=== PATIENT | male | born 1970 | race Caucasian/White ===

== ENCOUNTER 2024-06-28 18:00 | Inpatient (IN) | payer OTHER, SELFPAY ==
[2024-06-28] VITALS (9 sets, daily range): BP systolic 92–122; BP diastolic 48–84; PULSE 99–132; RESP 13–20; TEMP 36.5–37.2; O2SAT 91–98; BMI 27.1
--- NOTE | ~2024-06-28 | CT_ITS ---
EXAMINATION: CT HEAD WITHOUT CONTRAST CLINICAL INFORMATION: Fall. Head trauma COMPARISON: None available. TECHNIQUE: Contiguous axial imaging was performed from the skull base to vertex without intravenous administration of contrast. This CT examination was performed using dose optimization techniques as appropriate, variously including the following: *Automated exposure control *Adjustment of mA and/or kV according to patient size (this includes techniques or standardized protocols for targeted exams where dose is matched to indication/reason for exam; i.e. extremities or head) *Use of iterative reconstruction technique DLP: 732 mGy-cm FINDINGS: No intra or extra-axial fluid collection or hemorrhage, mass, or mass effect. Calvarium intact. CT/CT head/brain wo IV con IMPRESSION: No acute intracranial pathology. Electronically signed by: Damian Corbett MD 07/01/2024 10:48 AM EDT
--- NOTE | ~2024-06-28 | XR_ITS ---
EXAMINATION: XR CHEST CLINICAL INFORMATION: Hypoxia COMPARISON: None available. TECHNIQUE: Frontal view of the chest was obtained. FINDINGS: Heart is normal in size. No acute vascular congestion. Platelike atelectasis is seen in the right lung base. Groundglass and interstitial opacities seen in the left lung base. No pleural effusions. Osseous structures are intact. XR/XR chest 1V IMPRESSION: Groundglass and interstitial opacities in the left lung base. Platelike atelectasis in the right lung base. Electronically signed by: Db Jaimes MD 06/28/2024 08:12 PM EDT
--- NOTE | 2024-06-28 18:09 | ECG_ITS ---
Test Reason : TACHCARDIA Blood Pressure : / mmHG Vent. Rate : 128 BPM Atrial Rate : 128 BPM P-R Int : 152 ms QRS Dur : 080 ms QT Int : 308 ms P-R-T Axes : 040 150 033 degrees QTc Int : 449 ms Sinus tachycardia Right axis deviation Right ventricular hypertrophy Nonspecific ST abnormality Abnormal ECG No previous ECGs available Referred By: Generic ED Physician Electronically Signed By:KRISHNA CALLAHAN
--- NOTE | 2024-06-28 18:32 | ED.GENADULT ---
HPI - General Adult General Chief complaint: Psychiatric Symptoms Stated complaint: VS, poss reaction to meds, tachy, diaphoretic Time Seen by Provider: 06/28/24 18:32 Source: patient, EMS and RN notes reviewed Mode of arrival: EMS Limitations: no limitations History of Present Illness ED Provider: Ailyn Dietz PA-C HPI narrative: 54 yo male with history of schiophrenia presents to the ER from [facility] (admitted 06/26) who presents to the ER for evaluation of possible adverse medication reaction. Patient was admitted to [facility] 2 days ago for increased auditory hallucinations, he was found to have a UTI. Since admission there is not been eating or drinking, not taking any of his medications including his antibiotics. He has been catatonic per report from nursing. Today he was given 4 mg of intramuscular Ativan at 10:49 for concerns of catatonia. He was then given an additional 2 mg of Ativan at 14:46 along with 50 mg of Benadryl and 100 mg of Thorazine. Shortly after that patient begin getting agitated with belly breathing, diaphoresis. He was tachycardic. They were concerned about a cardiac process he was sent to the ER for further evaluation and treatment. Patient arrives to the ER with a [facility] employee. She reports that the patient required physical restraints today along with intramuscular restraints this afternoon at 14:45. He was getting aggressive and verbally combative with other clients and staff. They report he has not eaten or slept in over 24 hours. Patient arrives to the ER responding to internal stimuli, incoherent. He is tachycardic to the 120s and SpO2 is 91%. MD complaint: Tachycardia, possible medication adverse reaction Onset (ago): hour(s) Treatments prior to arrival: none Related Data Allergies Allergy/AdvReac Type Severity Reaction Status Date / Time No Known Allergies Allergy Verified 06/28/24 18:37 Review of Systems Review of Systems: Yes Unobtainable due to mental condition and Unobtainable due to mental status PMFSH Past Medical History Medical History (Updated 06/28/24 @ 23:33 by GARCÍA Buckner) Schizophrenia Social History Social History Advance Directives: No Advance Directives Information Provided: No Do you have a plan to hurt others: No Plan Physical Exam ED Vital Signs: Vital Signs - 24 hr 06/28/24 18:31 06/28/24 18:35 06/28/24 20:00 Temperature 97.9 F 99.0 F 98.9 F Pulse Rate 126 H 126 H 113 H Respiratory Rate 20 19 20 Blood Pressure 98/70 98/70 92/68 Pulse Oximetry 91 L 91 L 95 Oxygen Delivery Method Room Air Room Air Room Air 06/28/24 20:48 06/28/24 21:53 06/28/24 22:09 Temperature 98.9 F 98.9 F Pulse Rate 99 109 H Respiratory Rate 17 13 Blood Pressure 113/63 111/71 109/75 Pulse Oximetry 95 95 Oxygen Delivery Method Room Air Room Air 06/28/24 22:26 06/28/24 22:52 Temperature 97.7 F Pulse Rate 116 H Respiratory Rate 20 Blood Pressure 122/69 103/48 L Pulse Oximetry 98 Oxygen Delivery Method Room Air BMI result Body Mass Index 27.1 Appearance: Alert middle-aged male, talking to himself on the stretcher, mildly diaphoretic Oriented X3. No acute distress. Head: normocephalic, atraumatic. Eyes: Pupils equal, round and reactive to light. ENT: Pharynx with dry mucous membranes, dry lips. No tonsillar swelling or exudate. Neck: Normal inspection. Neck supple. CVS: Tachycardic, regular rhythm, heart rate 120s, no appreciated murmur, Pulses normal. Respiratory: No respiratory distress. Breath sounds normal. Abdomen: Soft and nontender. +BS x4 Skin: Skin warm and dry. Normal skin color. Normal skin turgor. No rashes. Extremities: No lower extremity edema. No joint swelling. Neuro/psych: Awake, alert, answers simple questions, and coherent sentences with racing thoughts, very disorganized thoughts, responding to internal stimuli, paranoid Medications Administered Generic Name Dose Route Start Last Admin Trade Name Freq PRN Reason Stop Dose Admin Sodium Chloride 1,000 mls @ 100 mls/hr 06/28/24 23:15 06/28/24 23:32 Ns IVCONT 100 mls/hr .Q10H CLARA Administration Discontinued Medications Generic Name Dose Route Start Last Admin Trade Name Freq PRN Reason Stop Dose Admin Lactated Ringer's 2,354.13 mls @ 2,354.13 mls/hr 06/28/24 19:30 06/28/24 21:53 Lr 30 ml/kg infuse over 1 hr (2354.13 ml) 06/28/24 20:29 Infused IV Infusion .Q1H ONE Ceftriaxone Sodium 1 gm/ 50 mls @ 100 mls/hr 06/28/24 19:30 06/28/24 20:22 Sodium Chloride IV 06/28/24 19:59 Infused ONCE ONE Infusion Azithromycin 500 mg/ Sodium 250 mls @ 125 mls/hr 06/28/24 20:20 06/28/24 23:26 Chloride IV 06/28/24 22:19 Infused ONCE ONE Infusion Medical Decision Making Medical Decision Making MDM Narrative: 54-year-old male with a history of schizophrenia presenting to the ER for evaluation of tachycardia and diaphoresis after he was chemically and physically restrained at [facility] today. On arrival to the ER patient is slightly diaphoretic, heart rates are in the 120s. He is saturating 91% on room air. Denies any shortness of breath or chest pain. He is speaking incoherently, responding to internal stimuli. Patient reports not eating or drinking in 3 days. He is agreeable to eating and drinking here. He drank 2 large pitchers of water. He was agreeable to lab work. Labs show a significant leukocytosis of 21.8. Was found to have an acute kidney injury with a BUN of 43 and a creatinine of 1.94. Labs were obtained from [facility] where he had blood work done on the 19 of June. At that time he had a BUN of 15 and a creatinine of 0.99. He had a white blood cell count of 14.7. He reportedly had a UTI ever [place] but his UA today is negative. He has not been on antibiotics. Patient was given boluses of LR given concerns for dehydration and sepsis. His lactic acid was normal. His heart rates slowly improved. Chest x-ray is showing left lower lobe infiltrate consistent with pneumonia. He was covered with Rocephin and azithromycin. Will plan to admit the patient for further management. Differential Diagnosis Differential Diagnoses: The differential diagnosis associated with the presentation includes Dehydration, adverse medication reaction, pneumonia, MA, UTI, sepsis Admission/Observation Consideration of admission/observation: Escalation of care including admission/observation considered Consult Healthcare Provider Management of the patient was discussed with: Hospitalist Lab Data [facility] Lab Attestation statement: I reviewed the patient's lab results. RAJIV, leukocytosis 06/28/24 18:51 06/28/24 18:51 Labs: Lab Results 06/28/24 06/28/24 06/28/24 Range/Units 18:51 19:47 22:09 WBC 21.8 H (4.8-10.8) X10*3/uL RBC 5.00 (4.60-5.80) X10*6/uL Hgb 16.6 (14.0-18.0) g/dl Hct 47.2 (42.0-52.0) % MCV 94.4 (80.0-98.0) fL MCH 33.2 H (27.0-33.0) pg MCHC 35.2 (31.0-36.0) g/dl RDW 12.7 (11.0-16.0) % Plt Count 209 (160-400) X10*3/uL MPV 10.6 (9.4-12.4) fL Immature Gran % (Auto) 0.7 H (0.0-0.4) % Neut % (Auto) 77.7 H (45-73) % Lymph % (Auto) 11.1 L (20-40) % [place] % (Auto) 10.1 (2-11) % Eos % (Auto) 0.1 (0-4) % Baso % (Auto) 0.3 (0-2) % Lymph # (Auto) 2.4 (1.2-4.9) X10*3/uL [place] # (Auto) 2.2 H (0.1-1.2) X10*3/uL Eos # (Auto) 0.0 (0.0-0.4) X10*3/uL Baso # (Auto) 0.1 (0.0-0.2) X10*3/uL Abs Immat Gran (auto) 0.16 H (0.00-0.03) X10*3/uL Absolute Neuts (auto) 16.9 H (2.0-8.3) x10*3/uL Absolute Nucleated RBC 0.000 (0.0-0.012) X10*3/uL Nucleated RBC % (auto) 0.0 (0.0-0.2) /100WBC Smear Tech's Comments VERIFIED Sodium 144 (135-145) mmol/L Potassium 3.6 (3.3-5.1) mmol/L Chloride 110 H (96-108) mmol/L Carbon Dioxide 19 L (22-29) mmol/L Anion Gap 19 (12-20) BUN 43 H (9-16) mg/dL Creatinine 1.94 H (0.5-1.4) mg/dL Estim Creat Clear Calc 40.2 Estimated GFR 36 Random Glucose 128 H (60-115) mg/dL Lactic Acid 2.0 (0.5-2.0) mmol/L Calcium 10.1 (8.4-10.2) mg/dL Magnesium 2.3 (1.6-2.6) mg/dL Total Bilirubin 0.6 (0.0-1.0) mg/dL Direct Bilirubin 0.2 (0.0-0.5) mg/dL AST 49 H (5-37) U/L ALT 24 (0-40) U/L Alkaline Phosphatase 85 (39-117) U/L Total Creatine Kinase 1685 H (38-174) U/L Troponin I High Sens 12.9 (<3.5-35.0) ng/L Total Protein 6.9 (6.5-8.0) g/dL Albumin 4.4 (3.5-5.0) g/dL Urine Color Yellow Urine Appearance Cloudy Urine pH 5.5 (5.0-9.0) Ur Specific [place] 1.015 (1.005-1.025) Urine Protein Negative (Neg-Trace) mg/dL Urine Glucose (UA) Negative (Negative) mg/dL Urine Ketones 15 (Negative) mg/dL Urine Blood Negative (Negative) Urine Nitrite Negative (Negative) Ur Leukocyte Esterase Negative (Negative) Urine Opiates Screen Not Detected (Not Detect) Ur Buprenorphine Scrn Not Detected (Not Detect) ng/mL Ur Oxycodone Screen Not Detected (Not Detect) ng/mL Urine Methadone Screen Not Detected (Not Detect) ng/mL Urine Fentanyl Screen Not Detected (Not Detect) Ur Barbiturates Screen Not Detected (Not Detect) Ur Phencyclidine Scrn Not Detected (Not Detect) Ur Amphetamines Screen Not Detected (Not Detect) U Benzodiazepines Scrn Not Detected (Not Detect) Urine Cocaine Screen Not Detected (Not Detect) U Marijuana (THC) Screen Not Detected (Not Detect) Independent Interpretation I performed an independent interpretation of an: EKG and Plain X-Ray Interpretation: EKG with sinus tachycardia, ventricular rate 128 beats per minute, normal AK interval, normal QTC, Q-waves present in leads 3 and AVF, T-wave inversion in V1 Chest x-ray with left lower lobe infiltrate consistent with pneumonia Radiology Impression Discussion of test interpretation with radiology: I have reviewed the radiologist's reading. Independent Historian Clinical information obtained from an independent historian. History obtained from or confirmed by: EMS and Other ([facility] staff worker at the bedside) External Record Review External record reviewed: Inpatient record, Outpatient record and Prior outpatient labs Prescription Management I considered prescription management with: Other (Antipsychotic) Chronic Conditions Patient?s care impacted by: Other (Schizophrenia) Critical Care Time Critical Care Time Critical Care Time: Yes Total Critical Care Time: 36 Attestation: I have personally provided critical care time exclusive of time spent on separately billable procedures. Time includes review of lab data, radiology results, discussion with consultants, and monitoring for potential decompensation. Intervention performed as documented. Discharge Plan Discharge Clinical Impression: Schizophrenia, Sepsis, Pneumonia, RAJIV (acute kidney injury) Patient Disposition: Admitted As Inpatient Interventions: Muse-Suicide Risk Severity Scale Last Done: 06/28/24 18:38 Print Language: Bahamian
--- NOTE | 2024-06-28 18:49 | PC.NURSE ---
This RN called and spoke with RN from [facility], this pt resides on the [facility] ([phone]) Reported that he was admitted there on 06/26 from [facility], pt was sectioned to [facility] by N for auditory hallucinations. Baseline known schizophrenia. Pt has been catatonic since admission and has not sleeping/eating/drinking/taking PO medications. Pt was given 4mg of IM ativan at 1049 this AM, pt then began to get physical with staff, he then received 50mg of Benadryl 2mg of Ativan 100mg Thorazine IM at 1446. Pt then became diaphoretic, belly breathing, and tachy, [facility] sending him to rule out any cardiac events at this time. Pt was + for UTI when leaving [facility] however has not been taking any of his PO medications. Vitals for them this morning where 98F temp, 98% RA, 85 HR, 104/53. They were unable to get vitals later on d.t agitation His parents are . He does have a a sister and brother but he has not given them consent to give them permission to speak with them. Staff reporting he has no known allergies at this time.
[2024-06-28 19:02] LABS: Basophils Absolute Auto 0.1 X10*3/uL (0.0-0.2); Basophils Percent Auto 0.3 % (0-2); Eosinophils Percent Auto 0.1 % (0-4); Hematocrit 47.2 % (42.0-52.0); Hemoglobin 16.6 g/dl (14.0-18.0); Imm Gran Abs Auto 0.16 X10*3/uL (0.00-0.03); Imm Gran Pct Auto 0.7 % (0.0-0.4); Lymphocytes Absolute Auto 2.4 X10*3/uL (1.2-4.9); Lymphocytes Percent Auto 11.1 % (20-40); MANUAL DIFF FLAG SCAN; Mean Corpuscular HGB Conc 35.2 g/dl (31.0-36.0); Mean Corpuscular Hemoglobin 33.2 pg (27.0-33.0); Mean Corpuscular Volume 94.4 fL (80.0-98.0); Mean Platelet Volume 10.6 fL (9.4-12.4); Monocytes Absolute Auto 2.2 X10*3/uL (0.1-1.2); Monocytes Percent Auto 10.1 % (2-11); Neutrophils Absolute Auto 16.9 x10*3/uL (2.0-8.3); Neutrophils Percent Auto 77.7 % (45-73); Platelet Count 209 X10*3/uL (160-400); Red Cell Distribution Width 12.7 % (11.0-16.0); SCAN SMEAR FLAG 1; White Blood Count 21.8 X10*3/uL (4.8-10.8)
[2024-06-28 19:20] LABS: SLIDE REVIEW VERIFIED
[2024-06-28 19:22] LABS: Alanine Aminotransferase 24 U/L (0-40); Albumin Level 4.4 g/dL (3.5-5.0); Alkaline Phosphatase 85 U/L (39-117); Anion Gap 19 (12-20); Aspartate Amino Transferase 49 U/L (5-37); Bilirubin Direct 0.2 mg/dL (0.0-0.5); Bilirubin Total 0.6 mg/dL (0.0-1.0); Blood Urea Nitrogen 43 mg/dL (9-16); Calcium 10.1 mg/dL (8.4-10.2); Carbon Dioxide 19 mmol/L (22-29); Chloride 110 mmol/L (96-108); Creatinine Clr Calc Pharmacy 40.2; Estimated Glomerular Filt Rate 36; Glucose Random 128 mg/dL (60-115); Magnesium 2.3 mg/dL (1.6-2.6); Potassium 3.6 mmol/L (3.3-5.1); Sodium 144 mmol/L (135-145); Total Protein 6.9 g/dL (6.5-8.0)
[2024-06-28 19:29] LABS: Troponin-I High Sensitivity 12.9 ng/L (<3.5-35.0)
[2024-06-28] MEDS: cefTRIAXone sodium 1 GM in 0.9 % Sodium Chloride 50 ML IV (19:52)
--- NOTE | 2024-06-28 20:02 | PC.NURSE ---
this rn assumed care of pt, pt appears manic, speaking in hyperverbal speech, but appears to understand plan of care. pt allowed this RN to place IV and obtain lab work, 20G placed in right ac. this RN noted pt to have per [facility] fluids orders, this rn spoke with Julia MARIANO and states to call sepsis alert. sepsis alert called overhead at 1949, protocol initiated at 1930. Julia MARIANO aware of pt vital signs at this time. IV fluids begun and antibiotics administered. Pt has [facility] worker sitting at bedside with pt. pt easily re- directable at this time.
[2024-06-28] MEDS: Azithromycin 500 MG in 0.9 % Sodium Chloride 250 ML 125 MG IV (20:44)
--- NOTE | 2024-06-28 20:49 | PC.NURSE ---
sepsis alert hour one vitals obtained, yvette MARIANO aware.
--- NOTE | 2024-06-28 21:43 | PC.NURSE ---
this rn received fax of pt medical labs from [facility], this RN contacted Ricco to confirm receipt of labs at this time.
--- NOTE | 2024-06-28 21:54 | PC.NURSE ---
pt instructed to use urinal as needed for urine. pt reports he is unable to provide sample at this time. attempted to place [place] cath on pt but pt refused. hour 2 sepsis vitals obtained at this time.
--- NOTE | 2024-06-28 22:10 | PC.NURSE ---
at this time, pt is incontinent of urine, pt refusing to let this RN remove pants, pt refused Radha tech and [employer], pt refusing to remove pants at this time, explained to pt there is urine on his pants. pt continuing to refuse.
--- NOTE | 2024-06-28 22:25 | PC.NURSE ---
pt assisted to bathroom to attempt to change pants, pt refused. pt assisted with teeth brushing and helped back to room.
[2024-06-28 22:28] LABS: Appearance Urine Cloudy; Color Urine Yellow; Glucose Urine UA Negative (Negative); Leukocyte Esterase Urine Negative (Negative); Nitrite Urine Negative (Negative); PH 5.5 (5.0-9.0); Specific Gravity - Urine 1.015 (1.005-1.025); Urine Blood Negative (Negative); Urine Ketones 15 mg/dL (Negative); Urine Protein Negative (Neg-Trace)
[2024-06-28 22:43] LABS: Amphetamine Screen Urine Not Detected (Not Detect); Barbiturates, Urine Not Detected (Not Detect); Benzodiazepines Screen Urine Not Detected (Not Detect); Buprenorphine Scr Not Detected (Not Detect); Cannabinoid Screen Urine Not Detected (Not Detect); Cocaine Screen Urine Not Detected (Not Detect); Fentanyl, urine Not Detected (Not Detect); Methadone Screen, Urine Not Detected (Not Detect); Opiate Screen Urine Not Detected (Not Detect); Oxycodone Screen Urine Not Detected (Not Detect); Phencyclidine Screen Urine Not Detected (Not Detect)
--- NOTE | 2024-06-28 22:52 | PC.NURSE ---
hour three sepsis vitals obtained at this time, Julia MARIANO aware of pt BP.
--- NOTE | 2024-06-28 23:17 | P.HPHOSP_ITS ---
History of Present Illness Date of Service: 06/28/24 Chief Complaint: diaphoresis, tachypnea 54M [facility] schizoaffective disorder, presented with [facility] 06/26/24 with paranoid delusions of aliens telling him to harm himself, was admitted to [facility]. there, he was not eating, not sleeping, refusing po meds, became very agitated, was given 100 mg of Thorazine, 6 mg of Ativan, 50 mg of Benadryl. He then became more agitated with belly breathing, diaphoresis, tachypnea so was sent to the ER. In ED found to have acute kidney injury with creatinine of 1.94, baseline normal. Chest x-ray showed ground-glass and interstitial opacity in left lung base. WBC 21.8 and tachycardia. Review of Systems 2 Review of Systems: Yes all other systems are reviewed and are negative [facility] Medical History (Updated 06/28/24 @ 23:24 by Matty Berry MD) Schizophrenia Social History Advance Directives: No Advance Directives Information Provided: No Do you have a plan to hurt others: No Plan Meds Allergies Allergy/AdvReac Type Severity Reaction Status Date / Time No Known Allergies Allergy Verified 06/28/24 18:37 Physical Exam 2 Vital Signs and Narrative: Vital Signs: Last Vital Signs Temp 97.7 F 06/28/24 22:52 Pulse 116 H 06/28/24 22:52 Resp 20 06/28/24 22:52 BP 103/48 L 06/28/24 22:52 Pulse Ox 98 06/28/24 22:52 O2 Del Method Room Air 06/28/24 22:52 BMI result Body Mass Index 27.1 General: AO X 3, anxious, pressured speech Resp: CTA bilateral, no accessory muscles used CVS: S1,S2,RRR GI: soft, non tender, non distended Neuro: motor grossly intact, alert Psych: impaired insight Results Labs 06/28/24 18:51 06/28/24 18:51 Labs: Laboratory Results - last 24 hr 06/28/24 06/28/24 06/28/24 18:51 19:47 22:09 MCV 94.4 MCH 33.2 H MCHC 35.2 RDW 12.7 Plt Count 209 MPV 10.6 Immature Gran % (Auto) 0.7 H Neut % (Auto) 77.7 H Lymph % (Auto) 11.1 L [place] % (Auto) 10.1 Eos % (Auto) 0.1 Baso % (Auto) 0.3 Lymph # (Auto) 2.4 [place] # (Auto) 2.2 H Eos # (Auto) 0.0 Baso # (Auto) 0.1 Abs Immat Gran (auto) 0.16 H Absolute Neuts (auto) 16.9 H Absolute Nucleated RBC 0.000 Nucleated RBC % (auto) 0.0 Smear Tech's Comments VERIFIED Anion Gap 19 Estim Creat Clear Calc 40.2 Estimated GFR 36 Random Glucose 128 H Lactic Acid 2.0 Calcium 10.1 Magnesium 2.3 Total Bilirubin 0.6 Direct Bilirubin 0.2 AST 49 H ALT 24 Alkaline Phosphatase 85 Troponin I High Sens 12.9 Total Protein 6.9 Albumin 4.4 Urine Color Yellow Urine Appearance Cloudy Urine pH 5.5 Ur Specific [place] 1.015 Urine Protein Negative Urine Glucose (UA) Negative Urine Ketones 15 Urine Blood Negative Urine Nitrite Negative Ur Leukocyte Esterase Negative Urine Opiates Screen Not Detected Ur Buprenorphine Scrn Not Detected Ur Oxycodone Screen Not Detected Urine Methadone Screen Not Detected Urine Fentanyl Screen Not Detected Ur Barbiturates Screen Not Detected Ur Phencyclidine Scrn Not Detected Ur Amphetamines Screen Not Detected U Benzodiazepines Scrn Not Detected Urine Cocaine Screen Not Detected U Marijuana (THC) Screen Not Detected Imaging Radiologist's Impressions: Impressions Chest X-Ray 06/28/24 18:44 IMPRESSION: Groundglass and interstitial opacities in the left lung base. Platelike atelectasis in the right lung base. Electronically signed by: Db Jaimes MD 06/28/2024 08:12 PM EDT RP Assessment and Plan (1) Schizophrenia: Status: Acute Plan 54M PMH schizoaffective disorder, presented with tachypnea Sepsis due to pneumonia Ceftriaxone azithromycin Acute kidney injury Due to poor p.o. intake and possible rhabdo (follow-up CPK) IV fluids, monitor Schizoaffective disorder with acute psychosis Patient not taking Clozaril consistently, we will hold for now Continue fluphenazine, fluoxetine, Ativan Psychiatry eval DVT prophylaxis with Lovenox Full Code Patient with pneumonia and acute kidney injury requiring IV fluids and IV antibiotics expected require at least 2 midnights inpatient for IV hydration and close monitoring Quality Stroke Does the patient have a stroke diagnosis?: No VTE Prior VTE?: No VTE Risk Level:: Medical - moderate - high VTE Device Contraindication: Treatment Not Indicated VTE Drug Contraindication: N/A - Med Ordered
[2024-06-28] MEDS: 0.9 % Sodium Chloride 1,000 ML 100 ML IVCONT (23:32)
[2024-06-29] MEDS: LORazepam 2 MG/ML VIAL IVPUSH ×3 (01:19→09:31)
--- NOTE | 2024-06-29 01:19 | PC.NURSE ---
at this time, pt refusing to take PRN PO ativan, pt agitated, refusing to change clothes, attempting to remove IV. Security at bedside attempting to private branch exchange service adviser pt, pt medicated per mar.
--- NOTE | 2024-06-29 01:30 | PC.NURSE ---
Paulie from security at bedside, pt changed into hospital attire at this time. belongings placed in C4
--- NOTE | 2024-06-29 01:42 | PC.NURSE ---
pt assisted onto hospital bed at this time, pt appears sleeping with eyes closed, sitter at bedside, [place] worker left at this time. bed alarm in place.
--- NOTE | 2024-06-29 06:43 | MHC.EDTECH ---
Unable to take patient vital signs, Patient uncooperative
--- NOTE | 2024-06-29 08:18 | MHC.EDTECH ---
went to do vitals on patient. Patient refused
[2024-06-29] MEDS: OLANZapine 10 MG VIAL 5 MG IM (08:25)
[2024-06-29 09:15] LABS: Hematocrit 41.2 % (42.0-52.0); Hemoglobin 14.5 g/dl (14.0-18.0); Mean Corpuscular HGB Conc 35.2 g/dl (31.0-36.0); Mean Corpuscular Hemoglobin 33.2 pg (27.0-33.0); Mean Corpuscular Volume 94.3 fL (80.0-98.0); Mean Platelet Volume 10.3 fL (9.4-12.4); Platelet Count 175 X10*3/uL (160-400); Red Blood Count 4.37 X10*6/uL (4.60-5.80); Red Cell Distribution Width 12.6 % (11.0-16.0); White Blood Count 20.6 X10*3/uL (4.8-10.8)
[2024-06-29] MEDS: 0.9 % Sodium Chloride Flush 3 ML SYRINGE IVFLUSH (09:33)
[2024-06-29 09:36] VITALS: BP 114/75; PULSE 104; RESP 18; O2SAT 94
--- NOTE | 2024-06-29 09:36 | PC.NURSE ---
Pt agreeable to having VS obtained. IV flushed. Pt refusing PO medications, paranoid - those aren't my medications, I don't take those.
--- NOTE | 2024-06-29 11:03 | PHA.MEDREC ---
Addendum entered by Orquidea Reinoso lise 06/29/24 15:35: Notified Dr. Logan that we did med rec using pharmacy claims and medical record and that pt hasn't received any clozapine dose since he was at [facility] and even longer since he was managing his medications at home. Addendum entered by Jyo Mclean 06/29/24 15:22: Called and spoke to Patient's sister Abeba. she states Patient was doing good taking he own medication until Dr change a dose ( she doesn't know which medication) . She was able to confirm name of medications Fluoxetine, Perphenazine, Clozapine, clonazepam,but not the dosing. She told me to call patients Dr Uzma Cho [phone]. called Md office twice and received medication list. Utilized list to confirm medications, however don't know when patient had his last dose. Addendum entered by Joy Mclean 06/29/24 11:17: Left medications unconfirmed and will have the pharmacist notify the MD. Original Note: Pharmacy Consult ? Medication Reconciliation Pharmacy has completed the medication reconciliation.Utilized list from [facility] to confirm med list, however when I called [facility] to confirm last dose of Clozapine, [facility] ( spoke to [facility] nurse) states patient never started any medications from home. He was just admitted 2 days ago and was in bad shape when he arrived. The only medications he received at [facility] was Ativan 4 mg, Chlorpromazine 100mg, Ativan 2 mg and Benadryl 50 mg. [place] states patient came from home and was in charge of taking his own medications.
[2024-06-29 11:25] VITALS: BP 111/73; PULSE 97; RESP 18; TEMP 36.7; O2SAT 97
--- NOTE | 2024-06-29 12:17 | HO.PM.IMPN ---
Subjective Subjective Date of Service: 06/29/24 Interval History: Pt is actively psychotic, delusional, and highly agitated and has been given multiple doses of ativan and Zyprexa to keep from self harm and harm to other no apparent respiratory difficulty Physical Exam Vital Signs: Vital Signs: Last Vital Signs Temp 98.1 F 06/29/24 11:25 Pulse 97 06/29/24 11:25 Resp 18 06/29/24 11:25 BP 111/73 06/29/24 11:25 Pulse Ox 97 06/29/24 11:25 O2 Del Method Room Air 06/29/24 11:25 BMI result Body Mass Index 27.1 Const: Other: General; agiatated, delusisonal Resp: rhonhci CVS: S1,S2,RRR GI: +BS, NT, no distention Skin: No rash Neuro: motor grossly intact Psych: delusional Objective Data Active Medications Acetaminophen (Acetaminophen 325 Mg Tablet) 650 mg PO Q6H PRN PRN Reason: Pain, Mild (Pain Scale 1-3), fever or headache Azithromycin (Azithromycin 500 Mg Tablet) 500 mg PO Q24H [facility] Calcium Carbonate (Calcium Carbonate 750 Mg Tab.Chew) 750 mg PO Q4H PRN PRN Reason: Heartburn Enoxaparin Sodium (Enoxaparin Sodium 40 Mg/0.4 Ml Syringe) 40 mg SUBCUT Q24H [facility] Last Admin: 06/29/24 09:37 Dose: Not Given Documented By: TOAN Non-Admin Reason: Patient Refused Fluoxetine HCl (Fluoxetine Hcl 20 Mg Capsule) 20 mg PO DAILY [facility] Last Admin: 06/29/24 09:37 Dose: Not Given Documented By: TOAN Non-Admin Reason: Patient Refused Fluphenazine HCl (Fluphenazine Hcl 2.5 Mg Tablet) 2.5 mg PO BID [facility] Last Admin: 06/29/24 09:37 Dose: Not Given Documented By: TOAN Non-Admin Reason: Patient Refused Ceftriaxone Sodium 1 gm/ (Sodium Chloride) 50 mls @ 100 mls/hr IV Q24H [facility] Lactated Ringer's (Lr) 1,000 mls @ 100 mls/hr IVCONT .Q10H [facility] Lorazepam (Lorazepam 1 Mg Tablet) 3 mg PO TID [facility] Last Admin: 06/29/24 09:37 Dose: Not Given Documented By: TOAN Non-Admin Reason: Patient Refused Lorazepam (Lorazepam 2 Mg/Ml Vial) 2 mg IVPUSH Q6H PRN PRN Reason: anxiety/restlessness Last Admin: 06/29/24 09:31 Dose: 2 mg Documented By: TOAN Magnesium Hydroxide (Milk Of Magnesia 30 Ml Oral.Susp) 30 ml PO DAILY PRN PRN Reason: Constipation Melatonin (Melatonin 3 Mg Tablet) 6 mg PO BEDTIME PRN PRN Reason: Insomnia Sodium Chloride (0.9 % Sodium Chloride Flush 3 Ml Syringe) 3 ml IVFLUSH QSHIFT [facility] Last Admin: 06/29/24 09:33 Dose: 3 ml Documented By: TOAN Trazodone HCl (Trazodone Hcl 50 Mg Tablet) 50 mg PO BEDTIME [facility] Labs 06/30/24 07:58 06/30/24 07:58 Labs: Laboratory Results - last 24 hr 06/28/24 06/28/24 06/28/24 18:51 19:47 22:09 MCV 94.4 MCH 33.2 H MCHC 35.2 RDW 12.7 Plt Count 209 MPV 10.6 Immature Gran % (Auto) 0.7 H Neut % (Auto) 77.7 H Lymph % (Auto) 11.1 L [place] % (Auto) 10.1 Eos % (Auto) 0.1 Baso % (Auto) 0.3 Lymph # (Auto) 2.4 [place] # (Auto) 2.2 H Eos # (Auto) 0.0 Baso # (Auto) 0.1 Abs Immat Gran (auto) 0.16 H Absolute Neuts (auto) 16.9 H Absolute Nucleated RBC 0.000 Nucleated RBC % (auto) 0.0 Smear Tech's Comments VERIFIED Anion Gap 19 Estim Creat Clear Calc 40.2 Estimated GFR 36 Random Glucose 128 H Lactic Acid 2.0 Calcium 10.1 Magnesium 2.3 Total Bilirubin 0.6 Direct Bilirubin 0.2 AST 49 H ALT 24 Alkaline Phosphatase 85 Total Creatine Kinase 1685 H Troponin I High Sens 12.9 Total Protein 6.9 Albumin 4.4 Urine Color Yellow Urine Appearance Cloudy Urine pH 5.5 Ur Specific [place] 1.015 Urine Protein Negative Urine Glucose (UA) Negative Urine Ketones 15 Urine Blood Negative Urine Nitrite Negative Ur Leukocyte Esterase Negative Urine Opiates Screen Not Detected Ur Buprenorphine Scrn Not Detected Ur Oxycodone Screen Not Detected Urine Methadone Screen Not Detected Urine Fentanyl Screen Not Detected Ur Barbiturates Screen Not Detected Ur Phencyclidine Scrn Not Detected Ur Amphetamines Screen Not Detected U Benzodiazepines Scrn Not Detected Urine Cocaine Screen Not Detected U Marijuana (THC) Screen Not Detected 06/29/24 09:07 MCV 94.3 MCH 33.2 H MCHC 35.2 RDW 12.6 Plt Count 175 MPV 10.3 Immature Gran % (Auto) Neut % (Auto) Lymph % (Auto) [place] % (Auto) Eos % (Auto) Baso % (Auto) Lymph # (Auto) [place] # (Auto) Eos # (Auto) Baso # (Auto) Abs Immat Gran (auto) Absolute Neuts (auto) Absolute Nucleated RBC 0.000 Nucleated RBC % (auto) 0.0 Smear Tech's Comments Anion Gap Estim Creat Clear Calc Estimated GFR Random Glucose Lactic Acid Calcium Magnesium Total Bilirubin Direct Bilirubin AST ALT Alkaline Phosphatase Total Creatine Kinase Troponin I High Sens Total Protein Albumin Urine Color Urine Appearance Urine pH Ur Specific [place] Urine Protein Urine Glucose (UA) Urine Ketones Urine Blood Urine Nitrite Ur Leukocyte Esterase Urine Opiates Screen Ur Buprenorphine Scrn Ur Oxycodone Screen Urine Methadone Screen Urine Fentanyl Screen Ur Barbiturates Screen Ur Phencyclidine Scrn Ur Amphetamines Screen U Benzodiazepines Scrn Urine Cocaine Screen U Marijuana (THC) Screen Assessment and Plan (1) RAJIV (acute kidney injury): Status: Acute (2) Pneumonia: Status: Acute (3) Sepsis: Status: Acute (4) Schizophrenia: Status: Acute Plan 54M PMH schizoaffective disorder, presented with tachypnea Sepsis due to pneumonia no hypoxia, wbc still very high but better Ceftriaxone azithromycin Acute kidney injury Due to poor p.o. intake and possible rhabdo (follow-up CPK) IV fluids, monitor Schizoaffective disorder with acute psychosis Patient not taking Clozaril consistently, we will hold for now he is refusing po meds Psychiatry eval for med recommendation DVT prophylaxis with Lovenox Full Code Patient with pneumonia and acute kidney injury requiring IV fluids and IV antibiotics expected require at least 2 midnights inpatient for IV hydration and close monitoring Quality Stroke Does the patient have a stroke diagnosis?: No VTE Prior VTE?: No VTE Risk Level:: Medical - moderate - high VTE Device Contraindication: Treatment Not Indicated VTE Drug Contraindication: N/A - Med Ordered
--- NOTE | 2024-06-29 13:22 | PC.NURSE ---
Pt continues intermittently attempting to wander down the hallway, redirectable with repeated attempts.
--- NOTE | 2024-06-29 14:01 | PC.NURSE ---
Pt eating lunch.
[2024-06-29 14:14] LABS: Anion Gap 10 (12-20); Blood Urea Nitrogen 25 mg/dL (9-16); Carbon Dioxide 26 mmol/L (22-29); Chloride 106 mmol/L (96-108); Glucose Fasting 89 mg/dL (60-99); Sodium 139 mmol/L (135-145)
[2024-06-29 14:31] LABS: Calcium 9.1 mg/dL (8.4-10.2); Estimated Glomerular Filt Rate > 60
--- NOTE | 2024-06-29 14:39 | PC.NURSE ---
Call Aurea DAILY at [facility] [place] for any questions regarding pt's psychiatric care.
[2024-06-29 15:37] VITALS: BP 115/65; PULSE 94; RESP 20; TEMP 36.3; O2SAT 95
--- NOTE | 2024-06-29 15:44 | MHC.CM.PN ---
PT WAS AT [facility] CM MET WITH PT, BROTHER AND SISTER IN LAW AT BEDSIDE PT LIVES ALONE AND IS INDEPENDENT WITH CARE AT BASELINE HE HAS NO SERVICES AND NO DME PT COMPLETED A HCP TODAY NAMING HIS SISTER, BRANDON HIS AGENT PCP: ALYSHA ODONNELL IMM DELIVERED DCP: HOME VS RETURN TO [facility] TRANSPORT: FAMILY VS BLS
--- NOTE | 2024-06-29 15:48 | P.CNPS_ITS ---
History of Present Illness Date of Service: 06/29/2024 Chief Complaint: Diaphoresis Tachypnea RAJIV Reason for Consult: psychosis/delusions Requesting physician: Jay Logan Discussed with referring provider: Yes Sources of Information: patient interviewed, chart reviewed and crisis/core team assessment reviewed Additional Sources of Information: sister Abeba Dueñas [phone] HPI Narrative: Mr. Long is 54 year-old male with hx of schizophrenia who was transferred from [facility] due to SOB. Pt in the ED had elevated WBC 21.8, BUN 43, Cr. 1.93, CK elevated 1685, chest XR showed ground glass on left lung base. He was started on antibiotic. Records requested from [facility]. Apparently, pt was not eating and had reported paranoid delusions of Alliens trying to harm him. He has been on clozaril but reports from [facility] that he was not taking it. He was then given prolixin 2.5mg p BID. He was on ativan 3mg po TID. unclear if presentation at [facility] was consistent with catatonia. Pt seen in ED. Pt is up, pacing mildly. He reports hearing voices. He states that everyone in the hospital is talking about him and people think that he is dangerous. He turned at some point and talks to someone who is not there. He tells that oriental orthodox sending alliens because people are not doing what they are supposed to do. He states he declined medications this morning because those were not the ones he usually takes. He was able to tell this writer producer that he takes clozapine 575mg po qhs, trilafon. He is not able to tell if he was taking clozaril or not at [facility]. He denies SI/HI. He asks if he can go out and smoke and return, which this writer producer explained he is currently being treated for pneumonia and need medical treatment. He asks if there is a smoking area in the hospital, which this writer producer explained there is not one. He is noted to have vertical nystagmus- which suspect is due to high dose ativan. He does not present with s/s of catatonia at this time but he does seem tormented by paranoid delusions and psychosis. Collateral information gathered from his sister, Abeba- who reports pt has been stable for 7 years on clozaril. She reports they talk almost daily and he presented as more paranoid last week, taking about oriental orthodox, alliens, and at some point became paranoid towards hers which sister reports is very unusual. Sister asked him to go to crisis or the ED. Sister reports he is usually very consistent taking medications. He apparently was seen by his psychiatrist about 3 weeks ago. He is usually on combination of clozapine, trilafon, prozac, clonazepam. Sister denies hx of aggression towards self or others. Past Psychiatric History: Inpt:09/2017 [facility]GED WITH [facility] (last admission) Op: Guillermo Cho past trials: clozapine, trilafon Medical Evaluation Reviewed: Yes [facility] Medical History (Updated 06/28/24 @ 23:33 by GARCÍA Buckner) Schizophrenia Family History: none Social History: lives alone. no children. Substance History: none Trauma History: unknown Diagnostics Vital Signs (24Hr): Vital Signs - 24 hr 06/28/24 18:31 06/28/24 18:35 06/28/24 20:00 Temperature 97.9 F 99.0 F 98.9 F Pulse Rate 126 H 126 H 113 H Respiratory Rate 20 19 20 Blood Pressure 98/70 98/70 92/68 Pulse Oximetry 91 L 91 L 95 Oxygen Delivery Method Room Air Room Air Room Air 06/28/24 20:48 06/28/24 21:53 06/28/24 22:09 Temperature 98.9 F 98.9 F Pulse Rate 99 109 H Respiratory Rate 17 13 Blood Pressure 113/63 111/71 109/75 Pulse Oximetry 95 95 Oxygen Delivery Method Room Air Room Air 06/28/24 22:26 06/28/24 22:52 06/29/24 09:36 Temperature 97.7 F Pulse Rate 116 H 104 H Respiratory Rate 20 18 Blood Pressure 122/69 103/48 L 114/75 Pulse Oximetry 98 94 Oxygen Delivery Method Room Air Room Air 06/29/24 11:25 06/29/24 15:37 Temperature 98.1 F 97.3 F Pulse Rate 97 94 Respiratory Rate 18 20 Blood Pressure 111/73 115/65 Pulse Oximetry 97 95 Oxygen Delivery Method Room Air Room Air BMI result Body Mass Index 27.1 Labs 06/29/24 09:07 06/29/24 13:07 Labs: Laboratory Results - last 48 hr 06/28/24 06/28/24 06/28/24 18:51 19:47 22:09 WBC 21.8 H RBC 5.00 Hgb 16.6 Hct 47.2 MCV 94.4 MCH 33.2 H MCHC 35.2 RDW 12.7 Plt Count 209 MPV 10.6 Immature Gran % (Auto) 0.7 H Neut % (Auto) 77.7 H Lymph % (Auto) 11.1 L [place] % (Auto) 10.1 Eos % (Auto) 0.1 Baso % (Auto) 0.3 Lymph # (Auto) 2.4 [place] # (Auto) 2.2 H Eos # (Auto) 0.0 Baso # (Auto) 0.1 Abs Immat Gran (auto) 0.16 H Absolute Neuts (auto) 16.9 H Absolute Nucleated RBC 0.000 Nucleated RBC % (auto) 0.0 Smear Tech's Comments VERIFIED Sodium 144 Potassium 3.6 Chloride 110 H Carbon Dioxide 19 L Anion Gap 19 BUN 43 H Creatinine 1.94 H Estim Creat Clear Calc 40.2 Estimated GFR 36 Random Glucose 128 H Fasting Glucose Lactic Acid 2.0 Calcium 10.1 Magnesium 2.3 Total Bilirubin 0.6 Direct Bilirubin 0.2 AST 49 H ALT 24 Alkaline Phosphatase 85 Total Creatine Kinase 1685 H Troponin I High Sens 12.9 Total Protein 6.9 Albumin 4.4 Urine Color Yellow Urine Appearance Cloudy Urine pH 5.5 Ur Specific [place] 1.015 Urine Protein Negative Urine Glucose (UA) Negative Urine Ketones 15 Urine Blood Negative Urine Nitrite Negative Ur Leukocyte Esterase Negative Urine Opiates Screen Not Detected Ur Buprenorphine Scrn Not Detected Ur Oxycodone Screen Not Detected Urine Methadone Screen Not Detected Urine Fentanyl Screen Not Detected Ur Barbiturates Screen Not Detected Ur Phencyclidine Scrn Not Detected Ur Amphetamines Screen Not Detected U Benzodiazepines Scrn Not Detected Urine Cocaine Screen Not Detected U Marijuana (THC) Screen Not Detected 06/29/24 06/29/24 09:07 13:07 WBC 20.6 H RBC 4.37 L Hgb 14.5 Hct 41.2 L MCV 94.3 MCH 33.2 H MCHC 35.2 RDW 12.6 Plt Count 175 MPV 10.3 Immature Gran % (Auto) Neut % (Auto) Lymph % (Auto) [place] % (Auto) Eos % (Auto) Baso % (Auto) Lymph # (Auto) [place] # (Auto) Eos # (Auto) Baso # (Auto) Abs Immat Gran (auto) Absolute Neuts (auto) Absolute Nucleated RBC 0.000 Nucleated RBC % (auto) 0.0 Smear Tech's Comments Sodium 139 Potassium 3.0 L Chloride 106 Carbon Dioxide 26 Anion Gap 10 L BUN 25 H Creatinine 0.78 Estim Creat Clear Calc 100.0 Estimated GFR > 60 Random Glucose Fasting Glucose 89 Lactic Acid Calcium 9.1 D Magnesium 2.0 Total Bilirubin Direct Bilirubin AST ALT Alkaline Phosphatase Total Creatine Kinase 1731 H Troponin I High Sens Total Protein Albumin Urine Color Urine Appearance Urine pH Ur Specific [place] Urine Protein Urine Glucose (UA) Urine Ketones Urine Blood Urine Nitrite Ur Leukocyte Esterase Urine Opiates Screen Ur Buprenorphine Scrn Ur Oxycodone Screen Urine Methadone Screen Urine Fentanyl Screen Ur Barbiturates Screen Ur Phencyclidine Scrn Ur Amphetamines Screen U Benzodiazepines Scrn Urine Cocaine Screen U Marijuana (THC) Screen Imaging Radiology Impressions: ITS Impressions Chest X-Ray 06/28/24 18:44 IMPRESSION: Groundglass and interstitial opacities in the left lung base. Platelike atelectasis in the right lung base. Electronically signed by: Db Jaimes MD 06/28/2024 08:12 PM EDT RP Mental Status Exam Mental Status Exam Narrative: Appearance: pt wearing hospital gown, pacing, noticeable horizontal nystagmus (? if related to high dose ativan) Behavior: mostly cooperative but somewhat guarded Psychomotor: no agitation or retardation noted Speech: mostly clear, regular rate/rhythm/volume, spontaneous TP: mostly linear TC: hearing voices, worried about other getting hurt, and others talking about him Mood: anxious Affect: restless, anxious, fearful SI: denies HI: denies VH/AH: hearing voices talking about him Delusions: paranoid delusions Insight/judgment: impaired x 2. Memory/cog: alert, oriented x 3, somewhat vague about situation. Medications Medications Current Medications Acetaminophen (Acetaminophen 325 Mg Tablet) 650 mg PO Q6H PRN PRN Reason: Pain, Mild (Pain Scale 1-3), fever or headache Azithromycin (Azithromycin 500 Mg Tablet) 500 mg PO Q24H [facility] Calcium Carbonate (Calcium Carbonate 750 Mg Tab.Chew) 750 mg PO Q4H PRN PRN Reason: Heartburn Enoxaparin Sodium (Enoxaparin Sodium 40 Mg/0.4 Ml Syringe) 40 mg SUBCUT Q24H [facility] Last Admin: 06/29/24 09:37 Dose: Not Given Fluoxetine HCl (Fluoxetine Hcl 20 Mg Capsule) 20 mg PO DAILY [facility] Last Admin: 06/29/24 09:37 Dose: Not Given Fluphenazine HCl (Fluphenazine Hcl 2.5 Mg Tablet) 2.5 mg PO BID [facility] Last Admin: 06/29/24 09:37 Dose: Not Given Ceftriaxone Sodium 1 gm/ (Sodium Chloride) 50 mls @ 100 mls/hr IV Q24H [facility] Lactated Ringer's (Lr) 1,000 mls @ 100 mls/hr IVCONT .Q10H [facility] Last Admin: 06/29/24 15:39 Dose: Not Given Lorazepam (Lorazepam 1 Mg Tablet) 3 mg PO TID [facility] Last Admin: 06/29/24 15:39 Dose: Not Given Lorazepam (Lorazepam 2 Mg/Ml Vial) 2 mg IVPUSH Q6H PRN PRN Reason: anxiety/restlessness Last Admin: 06/29/24 09:31 Dose: 2 mg Magnesium Hydroxide (Milk Of Magnesia 30 Ml Oral.Susp) 30 ml PO DAILY PRN PRN Reason: Constipation Melatonin (Melatonin 3 Mg Tablet) 6 mg PO BEDTIME PRN PRN Reason: Insomnia Sodium Chloride (0.9 % Sodium Chloride Flush 3 Ml Syringe) 3 ml IVFLUSH QSHIFT [facility] Last Admin: 06/29/24 09:33 Dose: 3 ml Trazodone HCl (Trazodone Hcl 50 Mg Tablet) 50 mg PO BEDTIME [facility] Allergies Allergies Allergy/AdvReac Type Severity Reaction Status Date / Time No Known Allergies Allergy Verified 06/28/24 18:37 Assessment & Plan Assessment & Plan (1) Schizophrenia: Qualifiers: Schizophrenia type: unspecified Qualified Code(s): F20.9 - Schizophrenia, unspecified Status: Acute Code(s): F20.9 - Schizophrenia, unspecified Plan Mr. Long is a 54 year-old male with hx of schizophrenia who was sent from [facility] due to SOB. He was found to have pneumonia and rhadomyolosis w/ RAJIV. Pt seen in ED. He presents with paranoid delusions, hearing voices. He declined antipsychotic this morning but did agree to restart clozapine. Per sister, he is usually compliant with medications and had been stable for 7 years on clozapine, trilafon. At [place], pt was on ativan 3mg po TID, prolixin 2.5mg po BID. He currently does not present with catatonic symptoms- will decrease ativan to 1mg po TID- will continue to monitor. Will restart clozapine 25mg po qhs, increase by 50mg/day given that he has been on clozapine for several years with no neutropenia. d/c prolixin and start trilafon- 4mg po daily and 10mg po qhs. Monitor CK 1685 on 1730 today. psych continue to follow Total time managing care of this patient today ____ minutes.
[2024-06-29] MEDS: Potassium Chloride Packet 20 MEQ PACKET 40 MEQ PO (17:28)
[2024-06-29] MEDS: Lactated Ringers 1,000 ML 100 ML IVCONT (18:14)
[2024-06-29 19:56] VITALS: BP 125/65; PULSE 99; RESP 20; TEMP 36.6; O2SAT 97
[2024-06-29] MEDS: LORazepam 1 MG TABLET PO (20:20)
[2024-06-29] MEDS: traZODone HCL 50 MG TABLET PO (20:21)
[2024-06-29] MEDS: cefTRIAXone sodium 1 GM in 0.9 % Sodium Chloride 50 ML IV (20:21)
[2024-06-29] MEDS: Azithromycin 500 MG TABLET PO (20:21)
[2024-06-29] MEDS: cloZAPine 25 MG TABLET PO (21:04)
[2024-06-29] MEDS: Perphenazine 2 MG TABLET 10 MG PO (21:04)
[2024-06-30] MEDS: LORazepam 2 MG/ML VIAL IVPUSH (01:59)
--- NOTE | 2024-06-30 02:06 | PC.NURSE ---
pt was geting restless and wanted his IV out, explained to patient the reason for the IV.pt did not want the IV fluids connected to him.IV fluids stopped.pt medicated with ativan 2mg IV.will attempt to start IV fluids when pt less restless.
[2024-06-30 04:00] VITALS: BP 116/65; PULSE 76; RESP 16; TEMP 36.6; O2SAT 95
[2024-06-30 07:27] VITALS: BP 113/64; PULSE 99; RESP 16; TEMP 36.6; O2SAT 95
[2024-06-30] MEDS: Perphenazine 4 MG TABLET PO (08:08)
[2024-06-30] MEDS: LORazepam 1 MG TABLET PO ×3 (08:08→21:09)
[2024-06-30 08:14] LABS: Hematocrit 38.7 % (42.0-52.0); Hemoglobin 13.5 g/dl (14.0-18.0); Mean Corpuscular HGB Conc 34.9 g/dl (31.0-36.0); Mean Corpuscular Volume 94.6 fL (80.0-98.0); Mean Platelet Volume 10.6 fL (9.4-12.4); Platelet Count 163 X10*3/uL (160-400); Red Blood Count 4.09 X10*6/uL (4.60-5.80); Red Cell Distribution Width 12.6 % (11.0-16.0); White Blood Count 15.6 X10*3/uL (4.8-10.8)
[2024-06-30 08:32] LABS: Anion Gap 9 (12-20); Blood Urea Nitrogen 15 mg/dL (9-16); Calcium 8.6 mg/dL (8.4-10.2); Carbon Dioxide 25 mmol/L (22-29); Chloride 109 mmol/L (96-108); Creatinine Clr Calc Pharmacy 111.4; Estimated Glomerular Filt Rate > 60; Glucose Random 98 mg/dL (60-115); Potassium 3.4 mmol/L (3.3-5.1); Sodium 140 mmol/L (135-145)
--- NOTE | 2024-06-30 10:08 | P.PNIM_ITS ---
Subjective Subjective Date of Service: 06/30/24 Interval History: He is still delusional but more cooperative and still refusing some care Physical Exam 2 Vital Signs: Vital Signs: Last Vital Signs Temp 97.9 F 06/30/24 07:27 Pulse 99 06/30/24 07:27 Resp 16 06/30/24 07:27 BP 113/64 06/30/24 07:27 Pulse Ox 95 06/30/24 07:27 O2 Del Method Room Air 06/30/24 07:27 BMI result Body Mass Index 27.1 Const: Other: General oriented to self, place and date Resp: rhonhci CVS: S1,S2,RRR GI: +BS, NT, no distention Skin: No rash Neuro: motor grossly intact Psych: delusional Objective Data Active Medications Acetaminophen (Acetaminophen 325 Mg Tablet) 650 mg PO Q6H PRN PRN Reason: Pain, Mild (Pain Scale 1-3), fever or headache Azithromycin (Azithromycin 500 Mg Tablet) 500 mg PO Q24H [facility] Last Admin: 06/29/24 20:21 Dose: 500 mg Documented By: SANDRA Calcium Carbonate (Calcium Carbonate 750 Mg Tab.Chew) 750 mg PO Q4H PRN PRN Reason: Heartburn Clozapine (Clozapine 25 Mg Tablet) 50 mg PO BEDTIME [facility] Enoxaparin Sodium (Enoxaparin Sodium 40 Mg/0.4 Ml Syringe) 40 mg SUBCUT Q24H [facility] Last Admin: 06/30/24 08:14 Dose: Not Given Documented By: MARINE Non-Admin Reason: Patient Refused Ceftriaxone Sodium 1 gm/ (Sodium Chloride) 50 mls @ 100 mls/hr IV Q24H [facility] Last Infusion: 06/29/24 20:59 Dose: Infused Documented By: SANDRA Lactated Ringer's (Lr) 1,000 mls @ 100 mls/hr IVCONT .Q10H [facility] Last Admin: 06/30/24 09:13 Dose: Not Given Documented By: MARINE Non-Admin Reason: Patient Refused Lorazepam (Lorazepam 2 Mg/Ml Vial) 2 mg IVPUSH Q6H PRN PRN Reason: anxiety/restlessness Last Admin: 06/30/24 01:59 Dose: 2 mg Documented By: SANDRA Lorazepam (Lorazepam 1 Mg Tablet) 1 mg PO TID [facility] Last Admin: 06/30/24 08:08 Dose: 1 mg Documented By: MARINE Magnesium Hydroxide (Milk Of Magnesia 30 Ml Oral.Susp) 30 ml PO DAILY PRN PRN Reason: Constipation Melatonin (Melatonin 3 Mg Tablet) 6 mg PO BEDTIME PRN PRN Reason: Insomnia Perphenazine (Perphenazine 2 Mg Tablet) 10 mg PO BEDTIME [facility] Last Admin: 06/29/24 21:04 Dose: 10 mg Documented By: SANDRA Perphenazine (Perphenazine 4 Mg Tablet) 4 mg PO DAILY [facility] Last Admin: 06/30/24 08:08 Dose: 4 mg Documented By: MARINE Sodium Chloride (0.9 % Sodium Chloride Flush 3 Ml Syringe) 3 ml IVFLUSH QSHIFT [facility] Last Admin: 06/30/24 09:13 Dose: Not Given Documented By: MARINE Non-Admin Reason: Patient Refused Trazodone HCl (Trazodone Hcl 50 Mg Tablet) 50 mg PO BEDTIME [facility] Last Admin: 06/29/24 20:21 Dose: 50 mg Documented By: SANDRA Labs 06/30/24 07:58 06/30/24 07:58 Labs: Laboratory Results - last 24 hr 06/29/24 06/30/24 13:07 07:58 MCV 94.6 MCH 33.0 MCHC 34.9 RDW 12.6 Plt Count 163 MPV 10.6 Absolute Nucleated RBC 0.000 Nucleated RBC % (auto) 0.0 Anion Gap 10 L 9 L Estim Creat Clear Calc 100.0 111.4 Estimated GFR > 60 > 60 Random Glucose 98 Fasting Glucose 89 Calcium 9.1 D 8.6 Magnesium 2.0 Total Creatine Kinase 1731 H Microbiology Microbiology Results: Microbiology 06/28/24 19:47 Blood Culture - Preliminary Blood - Venous No growth after 24 hours. 06/28/24 19:29 Blood Culture - Preliminary Blood - Venous No growth after 24 hours. Assessment and Plan (1) RAJIV (acute kidney injury): Status: Acute (2) Pneumonia: Status: Acute (3) Sepsis: Status: Acute (4) Schizophrenia: Status: Acute Plan 54M PMH schizoaffective disorder, presented with tachypnea Sepsis due to pneumonia no hypoxia, wbc trending down Ceftriaxone azithromycin started 06/28 Acute kidney injury, pre renal, resolved with ivf Schizoaffective disorder with acute psychosis Trilafon, cloazril and ativan per Psych DVT prophylaxis with Lovenox Full Code need for inpt: IV for sepsis d/t PNA, and acute psychosis need med adjustment Quality Stroke Does the patient have a stroke diagnosis?: No VTE Prior VTE?: No VTE Risk Level:: Medical - moderate - high VTE Device Contraindication: Treatment Not Indicated VTE Drug Contraindication: N/A - Med Ordered
--- NOTE | 2024-06-30 12:53 | MHC.CM.PN ---
Addendum entered by Mariana Ray 06/30/24 15:49: THIS CM ABLE TO REACH COORDINATOR AT [facility] (ZENOBIA) WHO STATES IT IS OK FOR BROTHER CORDELL TO COME GET HIS BELONGINGS. SISTER BRANDON UPDATED. Original Note: SISTER /HCP BRANDON([phone]) CALLED THIS CM TO REQUEST FOR ASSISTANCE IN CONTACTING [facility] SO THAT SHE MAY FACILITATE A WAY FOR HER BROTHER CORDELL TO P/U PT'S BELONGINGS. MESSAGE LEFT FOR CHARGE NURSE AT [facility]. AWAITING RETURN CALL.
--- NOTE | 2024-06-30 14:33 | PC.NURSE ---
Patient refusing IV fluids throughout shift. Would not allow RN to flush IV. Per patient, would like this taken out of arm . Patient educated on importance of keeping IV in and still needing IV antibiotics. Patient hesitate but verbalized understanding. Dr. Logan made aware.
--- NOTE | 2024-06-30 15:01 | PC.NURSE ---
Patient becoming more agitated and confused. Patient is fixated on meds. Per patient, has been here for 2 weeks and we are just messing with him . Given scheduled ativan per EMAR. Patient has been on phone with sister, then sister called this RN with concern about patients status, per sister, when patient gets this way, he gets worse fast . Dr. Logan made aware. No new orders. Oncoming nurse updated. Per patient request, given space at this time. 1:1 sitter remains outside of room for this time.
[2024-06-30 15:29] VITALS: BP 130/74; PULSE 95; RESP 18; TEMP 36.7; O2SAT 97
--- NOTE | 2024-06-30 15:58 | PC.NURSE ---
pt refused physical assessment. pt requesting to talk to regarding meds. tiger text sent to Deya Chacon and she stated she just spoke with him.
[2024-06-30 19:22] VITALS: BP 122/59; PULSE 95; RESP 18; TEMP 36.3; O2SAT 95
[2024-06-30] MEDS: Perphenazine 2 MG TABLET 10 MG PO (21:09)
[2024-06-30] MEDS: cloZAPine 25 MG TABLET 50 MG PO (21:09)
[2024-06-30] MEDS: Azithromycin 500 MG TABLET PO (21:10)
[2024-07-01 02:48] VITALS: BP 131/74; PULSE 100; RESP 17; TEMP 36.8; O2SAT 95
[2024-07-01 06:23] LABS: Hematocrit 37.1 % (42.0-52.0); Hemoglobin 12.7 g/dl (14.0-18.0); Mean Corpuscular HGB Conc 34.2 g/dl (31.0-36.0); Mean Corpuscular Hemoglobin 32.8 pg (27.0-33.0); Mean Corpuscular Volume 95.9 fL (80.0-98.0); Mean Platelet Volume 11.2 fL (9.4-12.4); Platelet Count 168 X10*3/uL (160-400); Red Blood Count 3.87 X10*6/uL (4.60-5.80); Red Cell Distribution Width 12.6 % (11.0-16.0); White Blood Count 12.1 X10*3/uL (4.8-10.8)
[2024-07-01 06:35] LABS: Anion Gap 10 (12-20); Blood Urea Nitrogen 14 mg/dL (9-16); Calcium 8.9 mg/dL (8.4-10.2); Carbon Dioxide 27 mmol/L (22-29); Chloride 109 mmol/L (96-108); Estimated Glomerular Filt Rate > 60; Glucose Random 87 mg/dL (60-115); Potassium 3.3 mmol/L (3.3-5.1); Sodium 143 mmol/L (135-145)
[2024-07-01 06:38] LABS: Neut%MD 53.6 %; Neutrophils Absolute Auto 6.8 x10*3/uL (2.0-8.3)
[2024-07-01 07:06] VITALS: BP 116/62; PULSE 95; RESP 16; TEMP 36.6; O2SAT 94
--- NOTE | 2024-07-01 09:01 | PM.DS ---
DS: Providers Provider Date of Service: 07/01/24 Date of admission: 06/28/24 23:15 Primary care physician: Rob Rubalcava MD Consults: 06/28/24 23:11 Consult to Psychiatry Routine Consulting Provider: Psych Covering Reason for consultation: acute psychosis, med recommendations, off clozaril 07/01/24 06:58 Consult to Care Team Routine Comment: Reason for consultation: psychosis, medically ready for discharge DS: Diagnosis Discharge Diagnosis (1) RAJIV (acute kidney injury): Status: Acute (2) Pneumonia: Status: Acute (3) Sepsis: Status: Acute (4) Schizophrenia: Status: Acute DS: Summary Hospital Course Hospital Course: admission hpi 06/28/24 Chief Complaint: diaphoresis, tachypnea 54M PMH schizoaffective disorder, presented with [facility] ED 06/26/24 with paranoid delusions of aliens telling him to harm himself, was admitted to [facility] inpatient psychiatry. there, he was not eating, not sleeping, refusing po meds, became very agitated, was given 100 mg of Thorazine, 6 mg of Ativan, 50 mg of Benadryl. He then became more agitated with belly breathing, diaphoresis, tachypnea so was sent to the ER. In ED found to have acute kidney injury with creatinine of 1.94, baseline normal. Chest x-ray showed ground-glass and interstitial opacity in left lung base. WBC 21.8 and tachycardia. Hospital course: The patient was admitted to a psychiatric facility for the management of decompensated schizoaffective disorder with agitation. During the stay, he developed shortness of breath and tachypnea and was brought to the ED, where he was found to be septic from community-acquired pneumonia. He also had acute kidney injury (RAJIV), likely due to inadequate nutrition. The RAJIV resolved rapidly with intravenous fluids. Pneumonia and sepsis were treated with ceftriaxone and Zithromax, with the WBC count decreasing from 21.8K to 12.1K. Sepsis has resolved, and the patient will be transitioned to oral Augmentin to complete a total of 7 days of antibiotics. Blood cultures have been negative. Schizophrenia with paranoia, and delusion.. Psych has been managing his meds, he seems overal better, but remains actively Psychotic and therefore will be admitted to inpatient Psych for further management and med adjustment. -Psycch (Deya H>) has been following him with meds adjustment as follow -Trilafon 10 mg at HS and 4 mg dily--no change -Clozapine reduced to 75 mg daily -Klonopin changed to Ativan 1 mg tid Fall 07/01/24, hit head, no obvious injury and denies pain, neuros intact, gait is steady, routine head ct Time Attestation Discharge Coordination Time (in mins): 40 Quality: Safe Use of Opioids Does Pt have an Active Cancer Diagnosis on the Problem List?: No Quality: Stroke Does the patient have a stroke diagnosis?: No Physical Exam Vital Signs: Vital Signs: Last Vital Signs Temp 97.8 F 07/01/24 07:06 Pulse 95 07/01/24 07:06 Resp 16 07/01/24 07:06 BP 116/62 07/01/24 07:06 Pulse Ox 94 07/01/24 07:06 O2 Del Method Room Air 07/01/24 07:06 BMI result Body Mass Index 27.1 General: AO X 3, Resp: CTA bilateral CVS: S1,S2,RRR GI: +BS, NT, no distention Skin: No rash Neuro: motor grossly intact Psych: paranoid DS: Data Data Completed and Pending Labs on day of discharge: Laboratory Results - last 24 hr 06/30/24 07/01/24 07:58 05:34 WBC 12.1 H RBC 3.87 L Hgb 12.7 L Hct 37.1 L MCV 95.9 MCH 32.8 MCHC 34.2 RDW 12.6 Plt Count 168 MPV 11.2 Absolute Neuts (auto) 6.8 Absolute Nucleated RBC 0.000 Nucleated RBC % (auto) 0.0 Sodium 143 Potassium 3.3 Chloride 109 H Carbon Dioxide 27 Anion Gap 10 L BUN 14 Creatinine 0.75 Estim Creat Clear Calc 104.0 Estimated GFR > 60 Random Glucose 87 Calcium 8.9 Total Creatine Kinase 950 H Preliminary micro results at discharge 06/28/24 19:47 Blood Culture - Preliminary Blood - Venous No growth after 48 hours. 06/28/24 19:29 Blood Culture - Preliminary Blood - Venous No growth after 48 hours. Discharge Plan Discharge Anticipated Discharge Date/Time: 07/01/24 09:02 Patient Disposition: Xfer Psychiatric Hosp Discharge Diagnosis: Sepsis, pneumonia, RAJIV, schizophrenia Referrals: Rob Rubalcava MD [Primary Care Provider] - 1 Week Discharge Medications: New amoxicillin-pot clavulanate 875-125 mg Tablet 1 tab PO Q12H Qty: 9 0RF Antacid Ext Str (calcium carb) 300 mg (750 mg) Tablet,Chewable 2.5 tab PO Q4H PRN (Reason: Heartburn) Qty: 30 0RF melatonin 3 mg Tablet 6 mg PO BEDTIME PRN (Reason: Insomnia) Qty: 30 0RF magnesium hydroxide [Milk of Magnesia] 400 mg/5 mL Suspension 30 ml PO DAILY PRN (Reason: Constipation) Qty: 355 0RF clozapine 25 mg Tablet 75 mg PO BEDTIME Qty: 30 0RF lorazepam 1 mg Tablet 1 mg PO TID Qty: 30 0RF Continued perphenazine 2 mg tablet 2 mg PO BEDTIME Rx Instructions: Take 1 tablet by mouth every morning with the 4mg = 6mg in the am perphenazine 4 mg tablet 4 mg PO DAILY perphenazine 8 mg Tablet 8 mg PO BEDTIME fluoxetine 20 mg capsule 20 mg PO DAILY@1800 docusate sodium 250 mg Capsule 250 mg PO Q48H PRN (Reason: Constipation) Discontinued clozapine 100 mg tablet 500 mg PO BEDTIME clonazepam 0.5 mg tablet 0.5 mg PO DAILY clonazepam 1 mg tablet 1 mg PO BEDTIME clozapine 25 mg tablet 25 mg PO BEDTIME clozapine 50 mg tablet 50 mg PO BEDTIME Discharge Orders: Discharge Order (Routine); Ordered 07/01/24 Ordered By: Jay Logan Diet: Advance to usual diet Activity on Discharge: As tolerated Stand Alone Forms: Patient Portal Discharge page Print Language: Thai Care Plan Goals: recovery from sepsis, pneumonia and acute psychosis Health Concerns: Sepsis Pneumonia Acute psychosis/schizoaffective disorder RAJIV Plan of Treatment: take augmentin for pneumonia to inpatient psych treatment
[2024-07-01 09:05] VITALS: BP 122/71; PULSE 98; RESP 16; TEMP 36.5; O2SAT 97
--- NOTE | 2024-07-01 09:05 | PC.NURSE ---
Pt. slipped and fell on the floor, hitting his head. Alert and oriented, no visible injuries noted. MD notified and at bedside. Pt. back up quickly off the floor, sitter ordered and camera in room. [employer] [employer] at the door side relieving sitter witnessed the fall, sitter instructed to keep distance from the patient. Vitals taken BP 122/71 hr 98, Oxygen 97% RA Temp 97.7, RR 16.
[2024-07-01 09:21] VITALS: BP 122/71; PULSE 98; RESP 16; TEMP 36.5
[2024-07-01] MEDS: 0.9 % Sodium Chloride Flush 3 ML SYRINGE IVFLUSH (09:55)
[2024-07-01] MEDS: LORazepam 1 MG TABLET PO ×2 (09:56→16:12)
[2024-07-01] MEDS: Perphenazine 4 MG TABLET PO (09:56)
[2024-07-01] MEDS: Amoxicillin/Potassium Clav 875 MG TABLET PO (09:56)
--- NOTE | 2024-07-01 13:00 | MHC.CM.PN ---
Per MD rounds patient medically cleared, awaiting I/P psych bed. CM will continue to follow.
[2024-07-01 13:52] VITALS: BP 111/63; PULSE 84; RESP 16; TEMP 36.8; O2SAT 96
--- NOTE | 2024-07-01 14:03 | P.CNPS_ITS ---
History of Present Illness Date of Service: 06/30/2024 Chief Complaint: Diaphoresis Tachypnea RAJIV Requesting physician: Jay Logan Discussed with referring provider: Yes Sources of Information: patient interviewed, chart reviewed and crisis/core team assessment reviewed HPI Narrative: Interim Hx: continues to present with paranoid delusions of alliens trying to hurt others and people here in the hospital lying to him. He is mistrustful of this technical writer and editor. He also continues to hear voices and often looks to the side and responds back. He is anxious and restless, fearful due to paranoid delusions. He denies SI/HI. Collateral info from Dr. Cho who reports pt did very well on clozapine 575mg po qhs, trilafon Past Psychiatric History: Inpt:09/2017 [facility] (last admission) Op: N Dr. Uzma Cho past trials: clozapine, trilafon Review of Systems Review of Systems Yes all other systems are reviewed and are negative, Unobtainable due to mental condition and Unobtainable due to mental status [facility] Medical History (Updated 06/28/24 @ 23:33 by GARCÍA Buckner) Schizophrenia Family History: none Social History: lives alone. no children. Trauma History: unknown Diagnostics Vital Signs (24Hr): Vital Signs - 24 hr 06/30/24 15:29 06/30/24 19:22 07/01/24 02:48 Temperature 98.1 F 97.4 F 98.3 F Pulse Rate 95 95 100 Respiratory Rate 18 18 17 Blood Pressure 130/74 122/59 L 131/74 Pulse Oximetry 97 95 95 Oxygen Delivery Method Room Air Room Air Room Air 07/01/24 07:06 07/01/24 09:05 07/01/24 09:21 Temperature 97.8 F 97.7 F 97.7 F Pulse Rate 95 98 98 Respiratory Rate 16 16 16 Blood Pressure 116/62 122/71 122/71 Pulse Oximetry 94 97 Oxygen Delivery Method Room Air Room Air 07/01/24 13:52 Temperature 98.2 F Pulse Rate 84 Respiratory Rate 16 Blood Pressure 111/63 Pulse Oximetry 96 Oxygen Delivery Method Room Air BMI result Body Mass Index 27.1 Labs 07/01/24 05:34 07/01/24 05:34 Labs: Laboratory Results - last 48 hr 06/29/24 06/30/2407/01/24 13:07 07:58 05:34 WBC 15.6 H 12.1 H RBC 4.09 L 3.87 L Hgb 13.5 L 12.7 L Hct 38.7 L 37.1 L MCV 94.6 95.9 MCH 33.0 32.8 MCHC 34.9 34.2 RDW 12.6 12.6 Plt Count 163 168 MPV 10.6 11.2 Absolute Neuts (auto) 6.8 Absolute Nucleated RBC 0.000 0.000 Nucleated RBC % (auto) 0.0 0.0 Sodium 139 140 143 Potassium 3.0 L 3.4 3.3 Chloride 106 109 H 109 H Carbon Dioxide 26 25 27 Anion Gap 10 L 9 L 10 L BUN 25 H 15 14 Creatinine 0.78 0.70 0.75 Estim Creat Clear Calc 100.0 111.4 104.0 Estimated GFR > 60 > 60 > 60 Random Glucose 98 87 Fasting Glucose 89 Calcium 9.1 D 8.6 8.9 Magnesium 2.0 Total Creatine Kinase 1731 H 950 H Imaging Radiology Impressions: ITS Impressions Chest X-Ray 06/28/24 18:44 IMPRESSION: Groundglass and interstitial opacities in the left lung base. Platelike atelectasis in the right lung base. Electronically signed by: Db Jaimes MD 06/28/2024 08:[address] 07/01/24 09:27 IMPRESSION: No acute intracranial pathology. Electronically signed by: Damian Corbett MD 07/01/2024 10:48 AM EDT Mental Status Exam Mental Status Exam Narrative: Appearance: pt wearing hospital gown, pacing, noticeable horizontal nystagmus (? if related to high dose ativan) Behavior: mostly cooperative but somewhat guarded Psychomotor: no agitation or retardation noted Speech: mostly clear, regular rate/rhythm/volume, spontaneous TP: mostly linear TC: hearing voices, worried about other getting hurt, and others talking about him Mood: anxious Affect: restless, anxious, fearful SI: denies HI: denies VH/AH: hearing voices talking about him Delusions: paranoid delusions Insight/judgment: impaired x 2. Memory/cog: alert, oriented x 3, somewhat vague about situation. Medications Medications Current Medications Acetaminophen (Acetaminophen 325 Mg Tablet) 650 mg PO Q6H PRN PRN Reason: Pain, Mild (Pain Scale 1-3), fever or headache Amoxicillin/Clavulanate Potassium (Amoxicillin/Potassium Clav 875 Mg Tablet) 875 mg PO Q12H [facility] Last Admin: 07/01/24 09:56 Dose: 875 mg Azithromycin (Azithromycin 500 Mg Tablet) 500 mg PO Q24H [facility] Last Admin: 06/30/24 21:10 Dose: 500 mg Calcium Carbonate (Calcium Carbonate 750 Mg Tab.Chew) 750 mg PO Q4H PRN PRN Reason: Heartburn Clozapine (Clozapine 25 Mg Tablet) 50 mg PO BEDTIME [facility] Last Admin: 06/30/24 21:09 Dose: 50 mg Enoxaparin Sodium (Enoxaparin Sodium 40 Mg/0.4 Ml Syringe) 40 mg SUBCUT Q24H [facility] Last Admin: 07/01/24 09:57 Dose: Not Given Lorazepam (Lorazepam 2 Mg/Ml Vial) 2 mg IVPUSH Q6H PRN PRN Reason: anxiety/restlessness Last Admin: 06/30/24 01:59 Dose: 2 mg Lorazepam (Lorazepam 1 Mg Tablet) 1 mg PO TID [facility] Last Admin: 07/01/24 09:56 Dose: 1 mg Magnesium Hydroxide (Milk Of Magnesia 30 Ml Oral.Susp) 30 ml PO DAILY PRN PRN Reason: Constipation Melatonin (Melatonin 3 Mg Tablet) 6 mg PO BEDTIME PRN PRN Reason: Insomnia Perphenazine (Perphenazine 2 Mg Tablet) 10 mg PO BEDTIME [facility] Last Admin: 06/30/24 21:09 Dose: 10 mg Perphenazine (Perphenazine 4 Mg Tablet) 4 mg PO DAILY [facility] Last Admin: 07/01/24 09:56 Dose: 4 mg Sodium Chloride (0.9 % Sodium Chloride Flush 3 Ml Syringe) 3 ml IVFLUSH QSHIFT [facility] Last Admin: 07/01/24 09:55 Dose: 3 ml Trazodone HCl (Trazodone Hcl 50 Mg Tablet) 50 mg PO BEDTIME [facility] Last Admin: 06/30/24 21:27 Dose: Not Given Allergies Allergies Allergy/AdvReac Type Severity Reaction Status Date / Time No Known Allergies Allergy Verified 06/28/24 18:37 Assessment & Plan Assessment & Plan (1) Schizophrenia: Qualifiers: Schizophrenia type: unspecified Qualified Code(s): F20.9 - Schizophrenia, unspecified Status: Acute Code(s): F20.9 - Schizophrenia, unspecified Plan Mr. Long is a 54 year-old male with hx of schizophrenia who was sent from [place] due to SOB. He was found to have pneumonia and rhadomyolosis w/ RAJIV. Pt seen in ED. He presents with paranoid delusions, hearing voices. He declined antipsychotic this morning but did agree to restart clozapine. Per sister, he is usually compliant with medications and had been stable for 7 years on clozapine, trilafon. At [place], pt was on ativan 3mg po TID, prolixin 2.5mg po BID. He currently does not present with catatonic symptoms- will decrease ativan to 1mg po TID- will continue to monitor. Will restart clozapine 25mg po qhs, increase by 50mg/day given that he has been on clozapine for several years with no neutropenia. d/c prolixin and start trilafon- 4mg po daily and 10mg po qhs. Monitor CK 1685 on 06/29, 173 today. psych continue to follow 06/30- continue daily titration of clozapine by 50mg/day, night time dose. increase on 06/30 to 50mg po qhs, 07/01 100mg po qhs, 07/02 150mg po qhs. Total time managing care of this patient today ____ minutes.
--- NOTE | 2024-07-01 14:47 | ECG_ITS ---
Test Reason : Requested from psych unit Blood Pressure : / mmHG Vent. Rate : 068 BPM Atrial Rate : 068 BPM P-R Int : 194 ms QRS Dur : 086 ms QT Int : 406 ms P-R-T Axes : 044 120 046 degrees QTc Int : 431 ms Normal sinus rhythm Possible Right ventricular hypertrophy Abnormal ECG When compared with ECG of 28-JUN-2024 18:09, Vent. rate has decreased BY 60 BPM Referred By: Jay Logan Electronically Signed By:KRISHNA CALLAHAN
[2024-07-01 15:43] VITALS: PULSE 78; RESP 18; TEMP 36.7; O2SAT 98
--- NOTE | 2024-07-05 12:57 | PC.NURSE ---
Sister called asking for patients belongings. He was discharged from our unit to [facility] last week. None of patients belongings where stored on the unit. Pt did come from an outside [facility].
--- NOTE | 2024-07-05 13:08 | PC.NURSE ---
Pt belongings found on S4, brought and handed to a Nurse on M[facility] by this physician underwriter. Sister Abebajhonny Dueñas called and Updated.
== END 2024-07-01 16:15 | DRG 871 ==
LOC: HO.ED 23:34 → HO.EDOVER 23:39 → HO.S3 06-29 14:04
PROVIDERS: Physician Assistant; Psychiatry & Neurology Psychiatry; Admitting Provider Internal Medicine; Emergency Provider Emergency Medicine Emergency Medical Services; PCP Internal Medicine; Visit Provider Internal Medicine
DX: A41.9 Sepsis, unspecified organism (principal); J18.9 Pneumonia, unspecified organism; N17.9 Acute kidney failure, unspecified; F20.0 Paranoid schizophrenia; E86.0 Dehydration; F17.210 Nicotine dependence, cigarettes, uncomplicated; Z71.6 Tobacco abuse counseling; Z79.899 Other long term (current) drug therapy
CPT/HCPCS: 36415; 70450; 71045; 80048; 80076; 80307; 81003; 82550; 83605; 83735; 84484; 85025; 85027; 87040; 93005; 99285; J0456; J0696; J2060; J2359; J7120; S9485

== ENCOUNTER → 2024-06-28 19:17 | Outpatient (BNV) | payer OTHER, SELFPAY | PROVIDERS: Emergency Provider Emergency Medicine Emergency Medical Services; Visit Provider Internal Medicine | DX: N17.9 Acute kidney failure, unspecified (principal); A41.9 Sepsis, unspecified organism; R65.20 Severe sepsis without septic shock; J18.9 Pneumonia, unspecified organism; F20.9 Schizophrenia, unspecified | CPT/HCPCS: 99223; 99232; 99233; 99239 ==

== ENCOUNTER → 2024-06-28 23:15 | Outpatient (BNV) | payer OTHER, SELFPAY | PROVIDERS: Admitting Provider Internal Medicine; Emergency Provider Emergency Medicine Emergency Medical Services; Visit Provider Social Worker | DX: F20.0 Paranoid schizophrenia (principal) | CPT/HCPCS: 99222; 99232 ==

== ENCOUNTER 2024-07-01 16:29 | Inpatient (IN) | payer OTHER, SELFPAY ==
[2024-07-01 17:06] VITALS: BMI 28.0
[2024-07-01 17:56] VITALS: BP 114/65; PULSE 80; RESP 18; TEMP 36.9; O2SAT 98
--- NOTE | 2024-07-01 18:15 | PC.NURSE ---
Seun was admitted to [facility] at 1640 from [place] [id number] on CV for treatment of psychosis.? Patient was being treated for psychosis at [place] for 3 days when he was sent to [facility] ED for SOB and admitted with Pneumonia and RAJIV. He was medically cleared today and is on continued po abx treatment. Notably, pt fell twice on S3 today with a head strike. Per Demario RN CT was negative and neuros wnl. On arrival to [facility] pt is steady on his feet and neuros are wnl.? On arrival to [facility] Seun is alert, oriented and cooperative. He is cooperative but requires prompting and assist to complete tasks.? Mood is depressed. Affect is highly anxious despite receiving ativan at 1600.? Patient reports auditory and visual? hallucinations. He is guarded about content but? describes them as scary. He does not appear to respond to internal stimuli. Pt expresses paranoia and fear that he will harm others with no intent. Thought Process is disorganized and perseverative. He denies current Ideation, plan or intent to harm self or others. He reports, ?about a week ago I committed suicide in my mind.? Appetite is good,? Sleep is reportedly poor. Focus is impaired. He denies substance Issues and tox screen was negative. Open areas noted between first and second toes on bilateral feet. He denies current physical complaint. Pt is being restarted on Clozaril with taper up to 75mg ordered for tonight.? He is on q 15 minute Safety Checks
[2024-07-01 20:00] VITALS: BP 115/69; PULSE 90; RESP 16; TEMP 36.6; O2SAT 96
[2024-07-01] MEDS: cloZAPine 25 MG TABLET 75 MG PO (20:12)
[2024-07-01] MEDS: traZODone HCL 50 MG TABLET PO (20:14)
[2024-07-01] MEDS: Melatonin 3 MG TABLET 6 MG PO (20:15)
[2024-07-01] MEDS: Azithromycin 500 MG TABLET PO (20:15)
[2024-07-01] MEDS: LORazepam 1 MG TABLET PO (20:16)
[2024-07-01] MEDS: Amoxicillin/Potassium Clav 875 MG TABLET PO (20:16)
[2024-07-01] MEDS: Perphenazine 2 MG TABLET PO (20:16)
[2024-07-01] MEDS: Perphenazine 8 MG TABLET PO (20:17)
[2024-07-01] MEDS: Docusate Sodium 100 MG CAPSULE PO (20:17)
[2024-07-02 07:00] VITALS: BMI 27.5
[2024-07-02 08:00] VITALS: BP 119/78; PULSE 93; RESP 14; TEMP 36.5; O2SAT 94
--- NOTE | 2024-07-02 08:44 | P.HPPS_ITS ---
HPI Date of Service: 07/02/24 Chief Complaint: psychosis Sources of Information: patient interviewed, chart reviewed and crisis/core team assessment reviewed HPI Subjective Notes: 3 Day Narrative: Patient is a 54-year-old male with history of schizoaffective disorder who was BIBA on 06/28/24 from [place], where he had been admitted on 06/26/24. He was brought to [facility] ER for not eating, sleeping and refusing p.o. medications; Facility was concerned questioning possible catatonia. Per crisis report, patient presented agitated and was given Thorazine, Benadryl, and Ativan. Patient was noted to have pneumonia and RAJIV and was admitted medically. While on the medical floor, patient presented with auditory hallucinations and delusions which required multiple doses of Ativan and Zyprexa. Patient reported he was at [place] for 3-4 days and has not needed a psychiatric admission for over 5 years. Patient was seen by N due to auditory hallucinations and telling his sister that he lost his soha in God and discussed aliens. Per report, at baseline patient lives alone and is medication compliant. He reports multiple inpatient psychiatric hospitalizations. During admission assessment, patient presents agitated, paranoid, delusional and guarded. Rapid and pressured speech. Circumstantial. Rambling. Oriented to person, place and situation. Patient stated, I came here to get help. I'm not staying here more than 3 days. I don't want to be here anymore. I have not slept in over a week. Think about what you're doing. You can go to snf for this. You're killing me mentally. You guys are committing murder . Patient reports suicidal ideation; patient stated, I feel suicidal because you guys make me feel that way . Patient reports auditory and visual hallucinations however, would not go into detail. He was able to say that he sees Dr. Cho at the [facility] for psychiatric care. Patient kept interaction brief and was perseverating on leaving. Past Psychiatric History: Inpt:09/2017 [facility] (last admission) Op: OSWALDO Cho past trials: clozapine, trilafon Medical Evaluation Reviewed: Yes [facility] Medical History (Updated 07/02/24 @ 17:03 by Makenna Soriano NP) Schizophrenia Family History: none Social History: lives alone. no children. Substance History: Unknown Trauma History: unknown Diagnostics Vital Signs (24Hr): Vital Signs - 24 hr 07/01/24 17:56 07/01/24 20:00 07/02/24 08:00 Temperature 98.4 F 97.8 F 97.7 F Pulse Rate 80 90 93 Respiratory Rate 18 16 14 Blood Pressure 114/65 115/69 119/78 Pulse Oximetry 98 96 94 Oxygen Delivery Method Room Air Room Air Room Air BMI result Body Mass Index 28.0 Meds/Allergies Meds Home Medications ?Medication ?Instructions ?Recorded ?Confirmed ?Type fluoxetine 20 mg capsule 20 mg PO DAILY 06/29/24 07/01/24 History perphenazine 2 mg tablet 2 mg PO BEDTIME 06/29/24 07/01/24 History perphenazine 4 mg tablet 4 mg PO DAILY 06/29/24 07/01/24 History perphenazine 8 mg tablet 8 mg PO BEDTIME 06/29/24 07/01/24 History azithromycin 500 mg tablet 500 mg PO BEDTIME 07/01/24 07/01/24 History (Zithromax) trazodone 50 mg tablet 50 mg PO BEDTIME 07/01/24 07/01/24 History Allergies Allergies Allergy/AdvReac Type Severity Reaction Status Date / Time No Known Allergies Allergy Verified 06/28/24 18:37 Mental Status Exam Mental Status Exam Patient Appearance: Well Grooomed Patient Orientation: Person, Place and Situation Level of Consciousness: Awake Patient Behavior: Guarded and Suspicious Mood Description: Suspicious, Anxious and Angry Affect Description: Constricted Ability to Follow Directions: Poor Speech Pattern: Perseverating, Rapid and Pressured Hallucinations: Auditory and Visual Delusions: Paranoid Ideation Thought Process: Racing Thought Content: positive for Circumstantial and positive for Perseveration Judgement: Poor Assessment & Plan Assessment & Plan (1) Schizoaffective disorder: Status: Acute Code(s): F25.9 - Schizoaffective disorder, unspecified Plan Patient is a 54-year-old male with history of schizoaffective disorder who was BIBA on 06/28/24 from [place], where he had been admitted on 06/26/24. He was brought to [facility] ER for not eating, sleeping and refusing p.o. medications; Facility was concerned questioning possible catatonia. Plan: 3 day notice 15 minutes safety checks Obtain collateral Continue home medications Discharge planning Patient educated on: diagnosis and medication risk/benefits Reason for continued inpatient stay Substantial Risk for: med/psych decompensation Statement Statement: I have reviewed the history and physical and performed a pertinent examination on my patient. No changes have occurred unless specified. If the History and Physical was not performed prior to admission, the Hospitalist's service will be consulted for completing the admission physical. Time Spent With Patient Time: Total time managing care of this patient today _60___ minutes.
[2024-07-02] MEDS: LORazepam 1 MG TABLET PO ×3 (08:52→20:37)
[2024-07-02] MEDS: FLUoxetine HCl 20 MG CAPSULE PO (08:52)
[2024-07-02] MEDS: Amoxicillin/Potassium Clav 875 MG TABLET PO ×2 (08:52→20:38)
[2024-07-02] MEDS: Perphenazine 4 MG TABLET PO (10:14)
[2024-07-02 10:36] LABS: Estimated Average Glucose 94 mg/dL; Hemoglobin A1c % 4.9 % (<6.0)
[2024-07-02 10:46] LABS: Cholesterol 124 mg/dL (<200); HDL Cholesterol 39 mg/dL (>40); LDL Cholesterol Calculated 69 mg/dL (<100); Triglycerides 81 mg/dL (<150)
[2024-07-02 10:55] LABS: Free T4 (Free Thyroxine) 1.25 ng/dL (0.71-1.85)
[2024-07-02 11:06] LABS: Folate 13.1 ng/mL (> or = 4.0); Vitamin B12 544 pg/mL (200-900)
--- NOTE | 2024-07-02 11:15 | PC.NURSE ---
Pt signed a 3 day 07/02, up on 07/08
[2024-07-02] MEDS: cloZAPine 25 MG TABLET 75 MG PO (20:36)
[2024-07-02] MEDS: traZODone HCL 50 MG TABLET PO (20:37)
[2024-07-02] MEDS: Perphenazine 2 MG TABLET PO (20:38)
[2024-07-02] MEDS: Perphenazine 8 MG TABLET PO (20:38)
[2024-07-02] MEDS: Azithromycin 500 MG TABLET PO (20:39)
[2024-07-02] MEDS: Docusate Sodium 100 MG CAPSULE PO (20:40)
[2024-07-03 07:50] VITALS: BP 114/64; PULSE 90; RESP 18; TEMP 37.3; O2SAT 94
[2024-07-03] MEDS: LORazepam 1 MG TABLET PO ×3 (08:42→20:55)
[2024-07-03] MEDS: Amoxicillin/Potassium Clav 875 MG TABLET PO ×2 (08:42→20:55)
[2024-07-03] MEDS: FLUoxetine HCl 20 MG CAPSULE PO (08:42)
[2024-07-03] MEDS: Perphenazine 4 MG TABLET PO (08:43)
--- NOTE | 2024-07-03 15:11 | P.PNPSI_ITS ---
Subjective Subjective Date of Service: 07/03/24 Reason For Visit: psychosis Interim History: paranoid, anxious. aware of plan to titrate clozapine up. no other complaints or requests. per staff, 3-day uyp 07/08. sad affect. paranoid, delusional. taking meds. +AH, denies CAH. slept 7-8 hours. Mental Status Exam Mental Status Exam Narrative: Appearance: adequately dressed and groomed Behavior: mostly cooperative but somewhat guarded Psychomotor: no agitation or retardation noted Speech: mostly clear, regular rate/rhythm/volume, spontaneous TP: mostly linear TC: worried he is not getting better Mood: anxious Affect: constricted, normo-intense, non-labile SI: none expressed HI: none expressed VH/AH: hearing voices Delusions: paranoid delusions Insight/judgment: impaired x 2. Memory/cog: alert, oriented x 3, somewhat vague about situation. Diagnostics Vital Signs (24Hr): Vital Signs - 24 hr 07/03/24 07:50 Temperature 99.2 F Pulse Rate 90 Respiratory Rate 18 Blood Pressure 114/64 Pulse Oximetry 94 Oxygen Delivery Method Room Air BMI result Body Mass Index 27.5 Labs Labs: Laboratory Results - last 48 hr 07/02/24 09:21 Estimat Average Glucose 94 Hemoglobin A1c % 4.9 Triglycerides 81 Cholesterol 124 LDL Cholesterol, Calc 69 HDL Cholesterol 39 L Vitamin B12 544 Folate 13.1 TSH 1.70 Free T4 1.25 Medications Medications Current Medications Acetaminophen (Acetaminophen 325 Mg Tablet) 650 mg PO Q6H PRN PRN Reason: Headache/Pain Mild Scale (1-3) Al Hydroxide/Mg Hydroxide (Magnesium Hydrox/Alum Hydrox 30 Ml Oral.Susp) 30 ml PO Q6H PRN PRN Reason: Heartburn/Nausea Amoxicillin/Clavulanate Potassium (Amoxicillin/Potassium Clav 875 Mg Tablet) 875 mg PO Q12H [facility] Last Admin: 07/03/24 08:42 Dose: 875 mg Azithromycin (Azithromycin 500 Mg Tablet) 500 mg PO BEDTIME [facility] Last Admin: 07/02/24 20:39 Dose: 500 mg Clozapine (Clozapine 100 Mg Tablet) 100 mg PO BEDTIME [facility] Stop: 07/03/24 21:01 Clozapine 100 mg/ Clozapine 25 (mg) 125 mg PO ONCE ONE Stop: 07/04/24 21:01 Clozapine 100 mg/ Clozapine 50 (mg) 150 mg PO ONCE ONE Stop: 07/05/24 21:01 Clozapine 100 mg/ Clozapine 75 (mg) 175 mg PO BEDTIME [facility] Docusate Sodium (Docusate Sodium 100 Mg Capsule) 100 mg PO BEDTIME [facility] Last Admin: 07/02/24 20:40 Dose: 100 mg Fluoxetine HCl (Fluoxetine Hcl 20 Mg Capsule) 20 mg PO DAILY [facility] Last Admin: 07/03/24 08:42 Dose: 20 mg Hydroxyzine HCl (Hydroxyzine Hcl 25 Mg Tablet) 25 mg PO Q6H PRN PRN Reason: Anxiety Lorazepam (Lorazepam 1 Mg Tablet) 1 mg PO TID [facility] Last Admin: 07/03/24 08:42 Dose: 1 mg Magnesium Hydroxide (Milk Of Magnesia 30 Ml Oral.Susp) 30 ml PO DAILY PRN PRN Reason: Constipation Melatonin (Melatonin 3 Mg Tablet) 6 mg PO BEDTIME PRN PRN Reason: Insomnia Last Admin: 07/01/24 20:15 Dose: 6 mg Nicotine (Nicotine 21 Mg Patch.Td24) 21 mg TRANSDERMA DAILY [facility] Last Admin: 07/03/24 08:43 Dose: Not Given Nicotine Polacrilex (Nicotine Polacrilex 2 Mg Gum) 4 mg BUCCAL Q2H PRN PRN Reason: Nicotine Cravings Perphenazine (Perphenazine 2 Mg Tablet) 2 mg PO BEDTIME [facility] Last Admin: 07/02/24 20:38 Dose: 2 mg Perphenazine (Perphenazine 4 Mg Tablet) 4 mg PO DAILY [facility] Last Admin: 07/03/24 08:43 Dose: 4 mg Perphenazine (Perphenazine 8 Mg Tablet) 8 mg PO BEDTIME [facility] Last Admin: 07/02/24 20:38 Dose: 8 mg Trazodone HCl (Trazodone Hcl 50 Mg Tablet) 50 mg PO BEDTIME MRX1 PRN PRN Reason: Insomnia Trazodone HCl (Trazodone Hcl 50 Mg Tablet) 50 mg PO BEDTIME [facility] Last Admin: 07/02/24 20:37 Dose: 50 mg Allergies Allergies Allergy/AdvReac Type Severity Reaction Status Date / Time No Known Allergies Allergy Verified 06/28/24 18:37 Assessment & Plan Assessment & Plan (1) Schizoaffective disorder: Status: Acute Code(s): F25.9 - Schizoaffective disorder, unspecified Plan Patient is a 54-year-old male with history of schizoaffective disorder who was BIBA on 06/28/24 from [place], where he had been admitted on 06/26/24. He was brought to [facility] for not eating, sleeping and refusing p.o. medications; Facility was concerned questioning possible catatonia. 07/02: 3 day notice. 15 minutes safety checks. Obtain collateral. Continue home medications. Discharge planning. 07/03: calm, cooperative, pleasant. paranoid, anxious. titrate clozapine back to 575 mg QHS. orders placed to increase to 100 mg 07/03, 125 mg 07/04, 150 mg 07/05, and to 175 mg as of 07/06. Reason for continued inpatient stay Substantial Risk for: inability to function and rapid decompensation Time Spent With Patient Time: Total time managing care of this patient today __25__ minutes.
[2024-07-03 19:52] VITALS: BP 128/67; PULSE 88; RESP 16; TEMP 36.6; O2SAT 96
[2024-07-03] MEDS: Azithromycin 500 MG TABLET PO (20:55)
[2024-07-03] MEDS: traZODone HCL 50 MG TABLET PO (20:55)
[2024-07-03] MEDS: Docusate Sodium 100 MG CAPSULE PO (20:56)
[2024-07-03] MEDS: Perphenazine 2 MG TABLET PO (20:56)
[2024-07-03] MEDS: cloZAPine 100 MG TABLET PO (20:56)
[2024-07-03] MEDS: Perphenazine 8 MG TABLET PO (20:56)
[2024-07-04 07:40] VITALS: BP 114/65; PULSE 96; RESP 14; TEMP 36.9; O2SAT 96
--- NOTE | 2024-07-04 09:03 | P.PNPSI_ITS ---
Subjective Subjective Date of Service: 07/04/24 Reason For Visit: psychosis Interim History: Patient seen in his room. He is anxious as his Clozaril is being titrated and says he is having AH. Paranoid, anxious. Asking for Ativan earlier than scheduled because of his anxiety. aware of plan to titrate clozapine up. no other complaints or requests. per staff, Apprehensive and sad affect. paranoid, delusional. taking meds. +AH, denies CAH. slept 7-8 hours. Review of Systems Review of Systems Yes Unobtainable due to mental status Mental Status Exam Mental Status Exam Narrative: Appearance: adequately dressed and groomed Behavior: mostly cooperative but somewhat guarded Psychomotor: no agitation or retardation noted Speech: mostly clear, regular rate/rhythm/volume, spontaneous TP: mostly linear TC: worried he is not getting better Mood: anxious Affect: constricted, normo-intense, non-labile SI: none expressed HI: none expressed VH/AH: hearing voices Delusions: paranoid delusions Insight/judgment: impaired x 2. Memory/cog: alert, oriented x 3, somewhat vague about situation. Patient Appearance: Well Grooomed Patient Orientation: Person, Place and Situation Level of Consciousness: Awake Patient Behavior: Guarded and Suspicious Mood Description: Suspicious, Anxious and Angry Affect Description: Constricted Ability to Follow Directions: Poor Speech Pattern: Perseverating, Rapid and Pressured Diagnostics Vital Signs (24Hr): Vital Signs - 24 hr 07/03/24 19:52 07/04/24 07:40 Temperature 97.8 F 98.5 F Pulse Rate 88 96 Respiratory Rate 16 14 Blood Pressure 128/67 114/65 Pulse Oximetry 96 96 Oxygen Delivery Method Room Air Room Air BMI result Body Mass Index 27.5 Labs Labs: Laboratory Results - last 48 hr 07/02/24 09:21 Estimat Average Glucose 94 Hemoglobin A1c % 4.9 Triglycerides 81 Cholesterol 124 LDL Cholesterol, Calc 69 HDL Cholesterol 39 L Vitamin B12 544 Folate 13.1 TSH 1.70 Free T4 1.25 Medications Medications Current Medications Acetaminophen (Acetaminophen 325 Mg Tablet) 650 mg PO Q6H PRN PRN Reason: Headache/Pain Mild Scale (1-3) Al Hydroxide/Mg Hydroxide (Magnesium Hydrox/Alum Hydrox 30 Ml Oral.Susp) 30 ml PO Q6H PRN PRN Reason: Heartburn/Nausea Amoxicillin/Clavulanate Potassium (Amoxicillin/Potassium Clav 875 Mg Tablet) 875 mg PO Q12H [facility] Last Admin: 07/03/24 20:55 Dose: 875 mg Azithromycin (Azithromycin 500 Mg Tablet) 500 mg PO BEDTIME [facility] Last Admin: 07/03/24 20:55 Dose: 500 mg Clozapine 100 mg/ Clozapine 25 (mg) 125 mg PO ONCE ONE Stop: 07/04/24 21:01 Clozapine 100 mg/ Clozapine 50 (mg) 150 mg PO ONCE ONE Stop: 07/05/24 21:01 Clozapine 100 mg/ Clozapine 75 (mg) 175 mg PO BEDTIME [facility] Docusate Sodium (Docusate Sodium 100 Mg Capsule) 100 mg PO BEDTIME [facility] Last Admin: 07/03/24 20:56 Dose: 100 mg Fluoxetine HCl (Fluoxetine Hcl 20 Mg Capsule) 20 mg PO DAILY [facility] Last Admin: 07/03/24 08:42 Dose: 20 mg Hydroxyzine HCl (Hydroxyzine Hcl 25 Mg Tablet) 25 mg PO Q6H PRN PRN Reason: Anxiety Lorazepam (Lorazepam 1 Mg Tablet) 1 mg PO TID [facility] Last Admin: 07/03/24 20:55 Dose: 1 mg Magnesium Hydroxide (Milk Of Magnesia 30 Ml Oral.Susp) 30 ml PO DAILY PRN PRN Reason: Constipation Melatonin (Melatonin 3 Mg Tablet) 6 mg PO BEDTIME PRN PRN Reason: Insomnia Last Admin: 07/01/24 20:15 Dose: 6 mg Nicotine (Nicotine 21 Mg Patch.Td24) 21 mg TRANSDERMA DAILY [facility] Last Admin: 07/03/24 08:43 Dose: Not Given Nicotine Polacrilex (Nicotine Polacrilex 2 Mg Gum) 4 mg BUCCAL Q2H PRN PRN Reason: Nicotine Cravings Perphenazine (Perphenazine 2 Mg Tablet) 2 mg PO BEDTIME [facility] Last Admin: 07/03/24 20:56 Dose: 2 mg Perphenazine (Perphenazine 4 Mg Tablet) 4 mg PO DAILY [facility] Last Admin: 07/03/24 08:43 Dose: 4 mg Perphenazine (Perphenazine 8 Mg Tablet) 8 mg PO BEDTIME [facility] Last Admin: 07/03/24 20:56 Dose: 8 mg Trazodone HCl (Trazodone Hcl 50 Mg Tablet) 50 mg PO BEDTIME MRX1 PRN PRN Reason: Insomnia Trazodone HCl (Trazodone Hcl 50 Mg Tablet) 50 mg PO BEDTIME [facility] Last Admin: 07/03/24 20:55 Dose: 50 mg Allergies Allergies Allergy/AdvReac Type Severity Reaction Status Date / Time No Known Allergies Allergy Verified 06/28/24 18:37 Assessment & Plan Assessment & Plan (1) Schizoaffective disorder: Status: Acute Code(s): F25.9 - Schizoaffective disorder, unspecified Plan Patient is a 54-year-old male with history of schizoaffective disorder who was BIBA on 06/28/24 from [place], where he had been admitted on 06/26/24. He was brought to [facility] for not eating, sleeping and refusing p.o. medications; Facility was concerned questioning possible catatonia. 07/02: 3 day notice. 15 minutes safety checks. Obtain collateral. Continue home medications. Discharge planning. 07/03: calm, cooperative, pleasant. paranoid, anxious. titrate clozapine back to 575 mg QHS. orders placed to increase to 100 mg 07/03, 125 mg 07/04, 150 mg 07/05, and to 175 mg as of 07/06. 07/04: continue current management and treatment plan. Orders for titrating Clozapine reviewed. Reason for continued inpatient stay Substantial Risk for: inability to function and rapid decompensation Time Spent With Patient Time: Total time managing care of this patient today ____ minutes.
[2024-07-04] MEDS: FLUoxetine HCl 20 MG CAPSULE PO (09:04)
[2024-07-04] MEDS: Amoxicillin/Potassium Clav 875 MG TABLET PO ×2 (09:04→21:32)
[2024-07-04] MEDS: LORazepam 1 MG TABLET PO ×3 (09:04→21:32)
[2024-07-04] MEDS: Perphenazine 4 MG TABLET PO (09:04)
[2024-07-04 18:30] VITALS: BP 120/66; PULSE 79; RESP 16; TEMP 36.5; O2SAT 97
[2024-07-04] MEDS: Perphenazine 2 MG TABLET PO (21:31)
[2024-07-04] MEDS: Perphenazine 8 MG TABLET PO (21:31)
[2024-07-04] MEDS: Azithromycin 500 MG TABLET PO (21:32)
[2024-07-04] MEDS: cloZAPine 100 MG, cloZAPine 25 MG 125 MG PO (21:32)
[2024-07-04] MEDS: traZODone HCL 50 MG TABLET PO (21:34)
[2024-07-05] MEDS: traZODone HCL 50 MG TABLET PO ×2 (01:42→22:16)
[2024-07-05 07:20] LABS: Neut%MD 56.9 %; Neutrophils Absolute Auto 6.6 x10*3/uL (2.0-8.3); WBCANC 11.6 X10*3/uL
[2024-07-05 07:51] VITALS: BP 114/60; PULSE 97; RESP 16; TEMP 36.7; O2SAT 96
[2024-07-05] MEDS: Amoxicillin/Potassium Clav 875 MG TABLET PO ×2 (08:35→22:16)
[2024-07-05] MEDS: Perphenazine 4 MG TABLET PO (08:35)
[2024-07-05] MEDS: FLUoxetine HCl 20 MG CAPSULE PO (08:36)
[2024-07-05] MEDS: LORazepam 1 MG TABLET PO ×3 (08:36→22:15)
--- NOTE | 2024-07-05 11:35 | HO.PSYCHPN ---
Subjective Subjective Date of Service: 07/05/24 Reason For Visit: psychosis Interim History: Patient anxious today. Seen approaching staff multiple times asking them not to misplace his phone even though they showed it to patient multiple times. Perseverative. Had some diarrhea and received imodium. Feels anxious. Tolerating titration of Clozapine. + AH. Paranoid, anxious. Apprehensive and sad affect. paranoid, delusional. taking meds. +AH, denies CAH. slept 7-8 hours. Review of Systems Review of Systems Yes Unobtainable due to mental status Mental Status Exam Mental Status Exam Narrative: Appearance: adequately dressed and groomed Behavior: mostly cooperative but somewhat guarded Psychomotor: no agitation or retardation noted Speech: mostly clear, regular rate/rhythm/volume, spontaneous TP: mostly linear TC: worried he is not getting better Mood: anxious Affect: constricted, normo-intense, non-labile SI: none expressed HI: none expressed VH/AH: hearing voices Delusions: paranoid delusions Insight/judgment: impaired x 2. Memory/cog: alert, oriented x 3, somewhat vague about situation. Patient Appearance: Well Grooomed Patient Orientation: Person, Place and Situation Level of Consciousness: Awake Patient Behavior: Guarded and Suspicious Mood Description: Suspicious, Anxious and Angry Affect Description: Constricted Ability to Follow Directions: Poor Speech Pattern: Perseverating, Rapid and Pressured Diagnostics Vital Signs (24Hr): Vital Signs - 24 hr 07/04/24 18:30 07/05/24 07:51 Temperature 97.7 F 98.1 F Pulse Rate 79 97 Respiratory Rate 16 16 Blood Pressure 120/66 114/60 Pulse Oximetry 97 96 Oxygen Delivery Method Room Air Room Air BMI result Body Mass Index 27.5 Labs Labs: Laboratory Results - last 48 hr 07/05/24 06:51 Absolute Neuts (auto) 6.6 Medications Medications Current Medications Acetaminophen (Acetaminophen 325 Mg Tablet) 650 mg PO Q6H PRN PRN Reason: Headache/Pain Mild Scale (1-3) Al Hydroxide/Mg Hydroxide (Magnesium Hydrox/Alum Hydrox 30 Ml Oral.Susp) 30 ml PO Q6H PRN PRN Reason: Heartburn/Nausea Amoxicillin/Clavulanate Potassium (Amoxicillin/Potassium Clav 875 Mg Tablet) 875 mg PO Q12H [facility] Last Admin: 07/05/24 08:35 Dose: 875 mg Azithromycin (Azithromycin 500 Mg Tablet) 500 mg PO BEDTIME [facility] Last Admin: 07/04/24 21:32 Dose: 500 mg Clozapine 100 mg/ Clozapine 50 (mg) 150 mg PO ONCE ONE Stop: 07/05/24 21:01 Clozapine 100 mg/ Clozapine 75 (mg) 175 mg PO BEDTIME [facility] Docusate Sodium (Docusate Sodium 100 Mg Capsule) 100 mg PO BEDTIME [facility] Last Admin: 07/04/24 21:38 Dose: Not Given Fluoxetine HCl (Fluoxetine Hcl 20 Mg Capsule) 20 mg PO DAILY [facility] Last Admin: 07/05/24 08:36 Dose: 20 mg Hydroxyzine HCl (Hydroxyzine Hcl 25 Mg Tablet) 25 mg PO Q6H PRN PRN Reason: Anxiety Loperamide HCl (Loperamide Hcl 2 Mg Capsule) 2 mg PO Q4H PRN PRN Reason: Diarrhea Lorazepam (Lorazepam 1 Mg Tablet) 1 mg PO TID [facility] Last Admin: 07/05/24 08:36 Dose: 1 mg Magnesium Hydroxide (Milk Of Magnesia 30 Ml Oral.Susp) 30 ml PO DAILY PRN PRN Reason: Constipation Melatonin (Melatonin 3 Mg Tablet) 6 mg PO BEDTIME PRN PRN Reason: Insomnia Last Admin: 07/01/24 20:15 Dose: 6 mg Nicotine (Nicotine 21 Mg Patch.Td24) 21 mg TRANSDERMA DAILY [facility] Last Admin: 07/05/24 08:38 Dose: Not Given Nicotine Polacrilex (Nicotine Polacrilex 2 Mg Gum) 4 mg BUCCAL Q2H PRN PRN Reason: Nicotine Cravings Perphenazine (Perphenazine 2 Mg Tablet) 2 mg PO BEDTIME [facility] Last Admin: 07/04/24 21:31 Dose: 2 mg Perphenazine (Perphenazine 4 Mg Tablet) 4 mg PO DAILY [facility] Last Admin: 07/05/24 08:35 Dose: 4 mg Perphenazine (Perphenazine 8 Mg Tablet) 8 mg PO BEDTIME [facility] Last Admin: 07/04/24 21:31 Dose: 8 mg Trazodone HCl (Trazodone Hcl 50 Mg Tablet) 50 mg PO BEDTIME MRX1 PRN PRN Reason: Insomnia Last Admin: 07/05/24 01:42 Dose: 50 mg Trazodone HCl (Trazodone Hcl 50 Mg Tablet) 50 mg PO BEDTIME [facility] Last Admin: 07/04/24 21:34 Dose: 50 mg Allergies Allergies Allergy/AdvReac Type Severity Reaction Status Date / Time No Known Allergies Allergy Verified 06/28/24 18:37 Assessment & Plan Assessment & Plan (1) Schizoaffective disorder: Status: Acute Code(s): F25.9 - Schizoaffective disorder, unspecified Plan Patient is a 54-year-old male with history of schizoaffective disorder who was BIBA on 06/28/24 from [place], where he had been admitted on 06/26/24. He was brought to [facility] ER for not eating, sleeping and refusing p.o. medications; Facility was concerned questioning possible catatonia. 07/02: 3 day notice. 15 minutes safety checks. Obtain collateral. Continue home medications. Discharge planning. 07/03: calm, cooperative, pleasant. paranoid, anxious. titrate clozapine back to 575 mg QHS. orders placed to increase to 100 mg 07/03, 125 mg 07/04, 150 mg 07/05, and to 175 mg as of 07/06. 07/04: continue current management and treatment plan. Orders for titrating Clozapine reviewed. 07/05: continue current management and treatment plan. Reason for continued inpatient stay Substantial Risk for: inability to function and rapid decompensation Time Spent With Patient Time: Total time managing care of this patient today ____ minutes.
[2024-07-05 20:00] VITALS: BP 113/73; PULSE 81; RESP 18; TEMP 36.7; O2SAT 99
[2024-07-05] MEDS: Azithromycin 500 MG TABLET PO (22:14)
[2024-07-05] MEDS: Perphenazine 2 MG TABLET PO (22:16)
[2024-07-05] MEDS: cloZAPine 100 MG, cloZAPine 75 MG 175 MG PO (22:17)
[2024-07-05] MEDS: Perphenazine 8 MG TABLET PO (22:19)
[2024-07-05] MEDS: cloZAPine 100 MG, cloZAPine 50 MG 150 MG PO (22:26)
[2024-07-06 07:45] VITALS: BP 115/68; PULSE 100; RESP 14; TEMP 36.8; O2SAT 96
[2024-07-06] MEDS: LORazepam 1 MG TABLET PO ×3 (08:59→21:23)
[2024-07-06] MEDS: Amoxicillin/Potassium Clav 875 MG TABLET PO ×2 (08:59→21:23)
[2024-07-06] MEDS: Perphenazine 4 MG TABLET PO (08:59)
[2024-07-06] MEDS: FLUoxetine HCl 20 MG CAPSULE PO (08:59)
--- NOTE | 2024-07-06 11:09 | HO.PSYCHPN ---
Subjective Subjective Date of Service: 07/06/24 Reason For Visit: psychosis Subjective Notes: 3 Day Interim History: Remains very anxious and delusional. I'm anxious because of the aliens Wanted to sleep in the sensory room. Says he signed a 3 day so he can leave to respite. Says he has a sister who is a nurse and she is going to help him. Is disorganized and difficult to follow. Illogical today. Diagnostics Vital Signs (24Hr): Vital Signs - 24 hr 07/05/24 20:00 07/06/24 07:45 Temperature 98.1 F 98.3 F Pulse Rate 81 100 Respiratory Rate 18 14 Blood Pressure 113/73 115/68 Pulse Oximetry 99 96 Oxygen Delivery Method Room Air Room Air BMI result Body Mass Index 27.5 Labs Labs: Laboratory Results - last 48 hr 07/05/24 06:51 Absolute Neuts (auto) 6.6 Medications Medications Current Medications Acetaminophen (Acetaminophen 325 Mg Tablet) 650 mg PO Q6H PRN PRN Reason: Headache/Pain Mild Scale (1-3) Al Hydroxide/Mg Hydroxide (Magnesium Hydrox/Alum Hydrox 30 Ml Oral.Susp) 30 ml PO Q6H PRN PRN Reason: Heartburn/Nausea Amoxicillin/Clavulanate Potassium (Amoxicillin/Potassium Clav 875 Mg Tablet) 875 mg PO Q12H [facility] Stop: 07/07/24 23:59 Last Admin: 07/06/24 08:59 Dose: 875 mg Azithromycin (Azithromycin 500 Mg Tablet) 500 mg PO BEDTIME [facility] Stop: 07/07/24 23:59 Last Admin: 07/05/24 22:14 Dose: 500 mg Clozapine 100 mg/ Clozapine 75 (mg) 175 mg PO BEDTIME [facility] Last Admin: 07/05/24 22:17 Dose: 175 mg Docusate Sodium (Docusate Sodium 100 Mg Capsule) 100 mg PO BEDTIME [facility] Last Admin: 07/05/24 22:29 Dose: Not Given Fluoxetine HCl (Fluoxetine Hcl 20 Mg Capsule) 20 mg PO DAILY [facility] Last Admin: 07/06/24 08:59 Dose: 20 mg Hydroxyzine HCl (Hydroxyzine Hcl 25 Mg Tablet) 25 mg PO Q6H PRN PRN Reason: Anxiety Loperamide HCl (Loperamide Hcl 2 Mg Capsule) 2 mg PO Q4H PRN PRN Reason: Diarrhea Lorazepam (Lorazepam 1 Mg Tablet) 1 mg PO TID [facility] Last Admin: 07/06/24 08:59 Dose: 1 mg Magnesium Hydroxide (Milk Of Magnesia 30 Ml Oral.Susp) 30 ml PO DAILY PRN PRN Reason: Constipation Melatonin (Melatonin 3 Mg Tablet) 6 mg PO BEDTIME PRN PRN Reason: Insomnia Last Admin: 07/01/24 20:15 Dose: 6 mg Nicotine (Nicotine 21 Mg Patch.Td24) 21 mg TRANSDERMA DAILY [facility] Last Admin: 07/06/24 09:00 Dose: Not Given Nicotine Polacrilex (Nicotine Polacrilex 2 Mg Gum) 4 mg BUCCAL Q2H PRN PRN Reason: Nicotine Cravings Perphenazine (Perphenazine 2 Mg Tablet) 2 mg PO BEDTIME [facility] Last Admin: 07/05/24 22:16 Dose: 2 mg Perphenazine (Perphenazine 4 Mg Tablet) 4 mg PO DAILY [facility] Last Admin: 07/06/24 08:59 Dose: 4 mg Perphenazine (Perphenazine 8 Mg Tablet) 8 mg PO BEDTIME [facility] Last Admin: 07/05/24 22:19 Dose: 8 mg Trazodone HCl (Trazodone Hcl 50 Mg Tablet) 50 mg PO BEDTIME MRX1 PRN PRN Reason: Insomnia Last Admin: 07/05/24 01:42 Dose: 50 mg Trazodone HCl (Trazodone Hcl 50 Mg Tablet) 50 mg PO BEDTIME [facility] Last Admin: 07/05/24 22:16 Dose: 50 mg Allergies Allergies Allergy/AdvReac Type Severity Reaction Status Date / Time No Known Allergies Allergy Verified 06/28/24 18:37 Assessment & Plan Assessment & Plan (1) Schizoaffective disorder: Status: Acute Code(s): F25.9 - Schizoaffective disorder, unspecified Plan Patient is a 54-year-old male with history of schizoaffective disorder who was BIBA on 06/28/24 from [place], where he had been admitted on 06/26/24. He was brought to [facility] ER for not eating, sleeping and refusing p.o. medications; Facility was concerned questioning possible catatonia. 07/02: 3 day notice. 15 minutes safety checks. Obtain collateral. Continue home medications. Discharge planning. 07/03: calm, cooperative, pleasant. paranoid, anxious. titrate clozapine back to 575 mg QHS. orders placed to increase to 100 mg 07/03, 125 mg 07/04, 150 mg 07/05, and to 175 mg as of 07/06. 07/04: continue current management and treatment plan. Orders for titrating Clozapine reviewed. 07/05: continue current management and treatment plan. 07/06: Continue titration of Clozaril per primary team plan. Stop date for Abx tomorrow. Reason for continued inpatient stay Substantial Risk for: inability to function and rapid decompensation Time Spent With Patient Time: Total time managing care of this patient today ____ minutes.
[2024-07-06 20:00] VITALS: BP 103/63; PULSE 88; RESP 18; TEMP 36.4; O2SAT 98
[2024-07-06] MEDS: Perphenazine 8 MG TABLET PO (21:21)
[2024-07-06] MEDS: cloZAPine 100 MG, cloZAPine 75 MG 175 MG PO (21:22)
[2024-07-06] MEDS: Perphenazine 2 MG TABLET PO (21:23)
[2024-07-06] MEDS: traZODone HCL 50 MG TABLET PO (21:23)
[2024-07-06] MEDS: Docusate Sodium 100 MG CAPSULE PO (21:24)
[2024-07-06] MEDS: Azithromycin 500 MG TABLET PO (21:24)
[2024-07-07 07:55] VITALS: BP 98/63; PULSE 92; RESP 16; TEMP 36.8; O2SAT 98
[2024-07-07] MEDS: Amoxicillin/Potassium Clav 875 MG TABLET PO ×2 (08:48→21:01)
[2024-07-07] MEDS: FLUoxetine HCl 20 MG CAPSULE PO (08:48)
[2024-07-07] MEDS: Perphenazine 4 MG TABLET PO (08:48)
[2024-07-07] MEDS: LORazepam 1 MG TABLET PO ×3 (08:48→20:59)
--- NOTE | 2024-07-07 16:19 | PM.PSYDC ---
DS: Providers Provider Date of Service: 07/07/24 Date of admission: 07/01/24 16:29 Primary care physician: Unknown Physician DS: Diagnosis Discharge Diagnosis (1) Schizoaffective disorder: Status: Acute DS: Medications Discharge Medications Home Medications: Previous Rx's ?Medication ?Instructions ?Recorded clozapine 100 mg tablet 200 mg (2 x 100 mg) PO BEDTIME 30 07/07/24 days #60 tabs clozapine 25 mg tablet 25 mg PO BEDTIME 30 days #30 tabs 07/07/24 docusate sodium 100 mg capsule 100 mg PO BEDTIME 30 days #30 caps 07/07/24 fluoxetine 20 mg capsule 20 mg PO DAILY 30 days #30 caps 07/07/24 lorazepam 1 mg tablet 1 mg PO TID 30 days #90 tabs 07/07/24 perphenazine 2 mg tablet 2 mg PO BEDTIME 30 days #30 tabs 07/07/24 perphenazine 4 mg tablet 4 mg PO DAILY 30 days #30 tabs 07/07/24 perphenazine 8 mg tablet 8 mg PO BEDTIME 30 days #30 tabs 07/07/24 trazodone 50 mg tablet 50 mg PO BEDTIME 30 days #30 tabs 07/07/24 Mental Status Exam Mental Status Exam Narrative: Appearance: adequately dressed and groomed Behavior: mostly cooperative but somewhat guarded Psychomotor: no agitation or retardation noted Speech: mostly clear, regular rate/rhythm/volume, spontaneous TP: mostly linear TC: worried he is not getting better Mood: anxious Affect: constricted, normo-intense, non-labile SI/SIBI: none HI: none VH/AH: hearing voices Delusions: paranoid delusions Insight/judgment: impaired x 2. Memory/cog: alert, oriented x 3, somewhat vague about situation. Data Data Completed and Pending Completed studies during hospitalization [Text1]: 07/02/24 07/05/24 09:21 06:51 Absolute Neuts (auto) 6.6 Estimat Average Glucose 94 Hemoglobin A1c % 4.9 Triglycerides 81 Cholesterol 124 LDL Cholesterol, Calc 69 HDL Cholesterol 39 L Vitamin B12 544 Folate 13.1 TSH 1.70 Free T4 1.25 DS: Summary Hospital Course Hospital Course: per 07/02 admission note: HPI Subjective Notes: 3 Day Narrative: Patient is a 54-year-old male with history of schizoaffective disorder who was BIBA on 06/28/24 from [place], where he had been admitted on 06/26/24. He was brought to [facility] ER for not eating, sleeping and refusing p.o. medications; Facility was concerned questioning possible catatonia. Per crisis report, patient presented agitated and was given Thorazine, Benadryl, and Ativan. Patient was noted to have pneumonia and RAJIV and was admitted medically. While on the medical floor, patient presented with auditory hallucinations and delusions which required multiple doses of Ativan and Zyprexa. Patient reported he was at [place] for 3-4 days and has not needed a psychiatric admission for over 5 years. Patient was seen by N due to auditory hallucinations and telling his sister that he lost his soha in God and discussed aliens. Per report, at baseline patient lives alone and is medication compliant. He reports multiple inpatient psychiatric hospitalizations. During admission assessment, patient presents agitated, paranoid, delusional and guarded. Rapid and pressured speech. Circumstantial. Rambling. Oriented to person, place and situation. Patient stated, I came here to get help. I'm not staying here more than 3 days. I don't want to be here anymore. I have not slept in over a week. Think about what you're doing. You can go to senior living for this. You're killing me mentally. You guys are committing murder . Patient reports suicidal ideation; patient stated, I feel suicidal because you guys make me feel that way . Patient reports auditory and visual hallucinations however, would not go into detail. He was able to say that he sees Dr. Cho at the [facility] for psychiatric care. Patient kept interaction brief and was perseverating on leaving. Past Psychiatric History: Inpt:09/2017 [facility] (last admission) Op: Guillermo Cho past trials: clozapine, trilafon Medical Evaluation Reviewed: Yes [facility] Medical History (Updated 07/02/24 @ 17:03 by Makenna Soriano NP) Schizophrenia Family History: none Social History: lives alone. no children. Substance History: Unknown Trauma History: unknown Precis: Patient is a 54-year-old male with history of schizoaffective disorder who was BIBA on 06/28/24 from [place], where he had been admitted on 06/26/24. He was brought to [facility] ER for not eating, sleeping and refusing p.o. medications; Facility was concerned questioning possible catatonia. 07/02: 3 day notice. 15 minutes safety checks. Obtain collateral. Continue home medications. Discharge planning. 07/03: calm, cooperative, pleasant. paranoid, anxious. titrate clozapine back to 575 mg QHS. orders placed to increase to 100 mg 07/03, 125 mg 07/04, 150 mg 07/05, and to 175 mg as of 07/06. 07/04: continue current management and treatment plan. Orders for titrating Clozapine reviewed. 07/05: continue current management and treatment plan. 07/06: Continue titration of Clozaril per primary team plan. Stop date for Abx tomorrow. 07/07: no change in presentation. clozapine titration continues. 07/07: remains psychotic but does not appear to be at imminent risk of harm to self or others and so was discharged upon maturation of 3-day notice. Time Spent with Patient Time attestation: Total time managing care of this patient today __35__ minutes. Discharge Plan Discharge Anticipated Discharge Date/Time: 07/08/24 09:00 Patient Disposition: Xfer Other Discharge Diagnosis: schizoaffective disorder Referrals: [facility] [Provider Group] - 1 Week ([facility] was added to patients chart. Please call [phone] for follow up appt.) Discharge Medications: New clozapine 100 mg Tablet 200 mg PO BEDTIME 30 Days Qty: 60 0RF clozapine 25 mg tablet 25 mg PO BEDTIME 30 Days Qty: 30 0RF Continued trazodone 50 mg Tablet 50 mg PO BEDTIME 30 Days Qty: 30 0RF perphenazine 4 mg tablet 4 mg PO DAILY 30 Days Qty: 30 0RF lorazepam 1 mg Tablet 1 mg PO TID 30 Days Qty: 90 0RF perphenazine 8 mg Tablet 8 mg PO BEDTIME 30 Days Qty: 30 0RF fluoxetine 20 mg capsule 20 mg PO DAILY 30 Days Qty: 30 0RF Discontinued perphenazine 2 mg tablet 2 mg PO BEDTIME amoxicillin-pot clavulanate 875-125 mg Tablet 1 tab PO Q12H Qty: 9 0RF melatonin 3 mg Tablet 6 mg PO BEDTIME PRN (Reason: Insomnia) Qty: 30 0RF Patient Comments: Pt has been refusing this medication clozapine 25 mg Tablet 75 mg PO BEDTIME Qty: 30 0RF Patient Comments: Pt took 50mg last night, due to increase to 75mg tonight azithromycin [Zithromax] 500 mg Tablet 500 mg PO BEDTIME No Action perphenazine 2 mg tablet 2 mg PO DAILY Discharge Orders: Discharge Order (Routine); Ordered 07/08/24 Ordered By: Tuan Álvarez Diet: Advance to usual diet Activity on Discharge: As tolerated Stand Alone Forms: Patient Portal Discharge page, Community Support Print Language: Arabic Care Plan Goals: remain safe and stable in the outpatient treatment setting Health Concerns: none Plan of Treatment: take medications as prescribed, follow up for outpatient mental health treatment with your usual providers Assessment: not committable. not at imminent risk of harm to self or others. Discharge Date/Time: 07/08/24 09:00
[2024-07-07 20:00] VITALS: BP 115/77; PULSE 86; RESP 14; TEMP 36.6; O2SAT 99
[2024-07-07] MEDS: cloZAPine 100 MG TABLET 200 MG PO (21:00)
[2024-07-07] MEDS: Azithromycin 500 MG TABLET PO (21:00)
[2024-07-07] MEDS: traZODone HCL 50 MG TABLET PO (21:00)
[2024-07-07] MEDS: Perphenazine 8 MG TABLET PO (21:01)
[2024-07-07] MEDS: Perphenazine 2 MG TABLET PO (21:01)
[2024-07-08 08:00] VITALS: BP 119/73; PULSE 107; RESP 14; TEMP 36.7; O2SAT 94
[2024-07-08] MEDS: LORazepam 1 MG TABLET PO (08:15)
[2024-07-08] MEDS: FLUoxetine HCl 20 MG CAPSULE PO (08:15)
[2024-07-08] MEDS: Perphenazine 4 MG TABLET PO (08:15)
== END 2024-07-08 09:00 | disposition other institution (70) | DRG 885 ==
PROVIDERS: Admitting Provider Psychiatry & Neurology Psychiatry; Visit Provider Psychiatry & Neurology Psychiatry
DX: F25.9 Schizoaffective disorder, unspecified (principal); F17.210 Nicotine dependence, cigarettes, uncomplicated; Z71.6 Tobacco abuse counseling; Z79.899 Other long term (current) drug therapy
CPT/HCPCS: 36415; 80061; 82607; 82746; 83036; 84439; 84443; 85048

== ENCOUNTER → 2024-07-01 16:29 | Outpatient (BNV) | payer OTHER, SELFPAY | PROVIDERS: Admitting Provider Psychiatry & Neurology Psychiatry; Visit Provider Registered Nurse | DX: F25.0 Schizoaffective disorder, bipolar type (principal) | CPT/HCPCS: 90792; 99231; 99232; 99239 ==

== ENCOUNTER 2024-07-10 15:59 | Inpatient (IN) | payer OTHER, SELFPAY ==
[2024-07-10 15:01] VITALS: BP 136/80; PULSE 88; RESP 16; TEMP 36.6; O2SAT 97
[2024-07-10 15:02] VITALS: BMI 27.4
--- NOTE | 2024-07-10 18:12 | HO.PM.IMCN ---
History of Present Illness Data of Consult Service Date: 07/10/24 Primary Care Provider: Rob Rubalcava MD [facility] Reason for consult: Admission H&P Pt is a 54-year-old male with a PMH significant for?schizoaffective disorder who is admitted to [facility] psychiatry unit for paranoia and hallucinations. Patient was previously admitted to the hospital here at [facility] on 06/28-07/01 as he was not eating, sleeping, and refusing p.o. meds at previous institution. Was discharged to respite facility where he decompensated further with worsening auditory and visual hallucinations. Medical consult for admission H&P. Patient approached in the hallway where he appeared uncomfortable and apprehensive, saying?he had already been seen and examined and been cleared to be on the floor. He did not want to be seen or examined again and expressed only a desire to get his nighttime medications. When asked, he said that he is ?fine? medically and denies any acute medical complaints. Review of Systems Review of Systems: Patient denies any acute medical complaints at this time [facility] Medical History Schizophrenia Social History Household Members: None Housing: Apartment Do you presently have visiting nurse or other home services: No Unable to assess alcohol history related to: Unknown Alcohol intake: unknown Comment: 1:1 sitter at bedside Patient Tobacco Use Status: Current everyday Tobacco user Tobacco use type: Cigarette Cigarettes Per Day: 10 Years Smoked: many Smoked in Last 30 Days: Yes Patient Interested in Nicotine Replacement: No Patient Given Instructions on How to Stop Smoking: No (to be done by RT) Second Hand Smoke Exposure: No Use of substances other than those prescribed or required for medical reasons: No Have you been hit, kicked, punched, or otherwise hurt by someone within the past year? If so, by whom?: No Do you feel safe in your current relationship?: Yes Is there a partner from a previous relationship who is making you feel unsafe now?: No Are you made to feel afraid or neglected: No Spiritual Healthcare Practices: born again confucianism Advance Directives: No Advance Directives Information Provided: Yes Do you have a plan to hurt others: No Plan Recently lost weight without trying: Yes How much weight loss: 2-13 pounds Eating poorly because of decreased appetite: No Nutrition screen score: 3 Poor oral hygiene: No Sexual orientation: Unable to collect Meds Allergies Allergy/AdvReac Type Severity Reaction Status Date / Time No Known Allergies Allergy Verified 06/28/24 18:37 Active Medications: Current Medications Acetaminophen (Acetaminophen 325 Mg Tablet) 650 mg PO Q6H PRN PRN Reason: Headache/Pain Mild Scale (1-3) Al Hydroxide/Mg Hydroxide (Magnesium Hydrox/Alum Hydrox 30 Ml Oral.Susp) 30 ml PO Q6H PRN PRN Reason: Heartburn/Nausea Clonazepam (Clonazepam 1 Mg Tablet) 1 mg PO DAILY CLARA Clonazepam (Clonazepam 0.5 Mg Tablet) 0.5 mg PO BID PRN PRN Reason: Anxiety Clozapine 100 mg/ Clozapine 50 (mg) 150 mg PO BEDTIME CLARA Fluoxetine HCl (Fluoxetine Hcl 20 Mg Capsule) 20 mg PO DAILY CLARA Magnesium Hydroxide (Milk Of Magnesia 30 Ml Oral.Susp) 30 ml PO DAILY PRN PRN Reason: Constipation Nicotine (Nicotine 21 Mg Patch.Td24) 21 mg TRANSDERMA DAILY PRN PRN Reason: smoking cessation Nicotine Polacrilex (Nicotine Polacrilex 2 Mg Gum) 4 mg BUCCAL Q2H PRN PRN Reason: Nicotine Cravings Olanzapine (Olanzapine 2.5 Mg Tablet) 2.5 mg PO TID PRN PRN Reason: agitation Perphenazine (Perphenazine 8 Mg Tablet) 8 mg PO BEDTIME CLARA Perphenazine (Perphenazine 2 Mg Tablet) 6 mg PO DAILY CLARA Trazodone HCl (Trazodone Hcl 50 Mg Tablet) 50 mg PO BEDTIME MRX1 PRN PRN Reason: Insomnia Physical Exam Vital Signs and Narrative: Patient refused physical examination, but was seen walking on the unit without limitation and in no acute distress Assessment and Plan (1) Medical clearance for psychiatric admission: Status: Acute Plan Pt is a 54-year-old male with a PMH significant for?schizoaffective disorder who is admitted to [facility] psychiatry unit for paranoia and hallucinations. Patient was previously admitted to the hospital here at [facility] on 06/28-07/01 as he was not eating, sleeping, and refusing p.o. meds at previous institution. Was discharged to respite facility where he decompensated further with worsening auditory and visual hallucinations. Medical consult for admission H&P. Mood disorder Plan as per psychiatry Patient otherwise has no apparent acute medical complaints or chronic medical conditions. Will sign off for now. Please re-consult if any acute issue or need arises.
--- NOTE | 2024-07-10 18:30 | PC.ADMIT ---
Seun arrived via stretcher from [facility] ED. The ED physician offered both CV and 12B options, Seun seemed unclear at the time and the 12b was signed. Dr Torres was notified of his arrival and when MD presented CV, Seun verbalized understanding and signed it. He cooperated with skin/safety checks. Skin check is unremarkable. Seun is known to [facility] having been dc'd from [facility] a few weeks ago to respite. He was sent to ED by respite related to worsening paranoia and hallucinations. He reports that he wasnt up to where he needed to be with his clozeril dose, and was struggling with disrupted sleep for 3 weeks , lots of nightmares . He is future focused, I know I need to be here , I want to get back to my life . He currently denies urges to harm self or others. He reports the hallucinations have quieted since arriving at [place]. He denies any now. He's very open to signing ROIs. He was oriented to unit and routine and is on 15 minute safety check per order.
[2024-07-10] MEDS: cloZAPine 100 MG, cloZAPine 50 MG 150 MG PO (20:29)
[2024-07-10] MEDS: traZODone HCL 50 MG TABLET PO (20:30)
[2024-07-10] MEDS: OLANZapine 2.5 MG TABLET PO (20:30)
[2024-07-10] MEDS: clonazePAM 0.5 MG TABLET PO (20:30)
[2024-07-10] MEDS: Perphenazine 8 MG TABLET PO (20:30)
[2024-07-10 20:34] VITALS: BP 109/60; PULSE 96; RESP 18; TEMP 36.6; O2SAT 98
[2024-07-11] MEDS: clonazePAM 0.5 MG TABLET PO ×2 (01:04→11:24)
[2024-07-11 07:55] LABS: Estimated Average Glucose 103 mg/dL; Hemoglobin A1C 124.9482 umol/L; Hemoglobin A1c % 5.2 % (<6.0)
[2024-07-11 08:00] VITALS: BP 106/66; PULSE 97; RESP 16; TEMP 36.5; O2SAT 97
[2024-07-11 08:11] LABS: Alanine Aminotransferase 20 U/L (0-40); Albumin Level 4.2 g/dL (3.5-5.0); Alkaline Phosphatase 77 U/L (39-117); Anion Gap 12 (12-20); Aspartate Amino Transferase 16 U/L (5-37); Bilirubin Total 0.4 mg/dL (0.0-1.0); Blood Urea Nitrogen 19 mg/dL (9-16); Calcium 9.3 mg/dL (8.4-10.2); Carbon Dioxide 27 mmol/L (22-29); Chloride 106 mmol/L (96-108); Cholesterol 138 mg/dL (<200); Creatinine Clr Calc Pharmacy 92.8; Estimated Glomerular Filt Rate > 60; Glucose Fasting 102 mg/dL (60-99); HDL Cholesterol 48 mg/dL (>40); LDL Cholesterol Calculated 71 mg/dL (<100); Magnesium 2.1 mg/dL (1.6-2.6); Potassium 3.2 mmol/L (3.3-5.1); Sodium 142 mmol/L (135-145); Total Protein 6.8 g/dL (6.5-8.0); Triglycerides 96 mg/dL (<150)
[2024-07-11 08:26] LABS: TSH reflex Free T4 2.56 uIU/mL (0.32-4.0)
[2024-07-11] MEDS: clonazePAM 1 MG TABLET PO (08:42)
[2024-07-11] MEDS: Perphenazine 2 MG TABLET 6 MG PO (08:42)
[2024-07-11] MEDS: FLUoxetine HCl 20 MG CAPSULE PO (08:42)
--- NOTE | 2024-07-11 11:44 | HO.PSYADMNOT ---
HPI Date of Service: 07/11/24 Chief Complaint: Unspecified schizophrenia Sources of Information: patient interviewed, chart reviewed and crisis/core team assessment reviewed HPI Subjective Notes: Chavez Warning and Conditional Voluntary Narrative: The patient is a 54-year-old male, single, with no children, unemployed on disability for mental illness, with good social support provided by his brother who lives in [place] and another sibling, with a long history of schizophrenia who was recently admitted to [facility] a few weeks ago for psychotic decompensation, later on he was transferred to this hospital for worsening of his mental status but he was diagnosed with pneumonia needed to be treated medically and after being medically cleared on transferred to . He was discharged a few days ago but he came back to the hospital complaining of psychotic symptoms. According to the crisis report, the patient reported that he had been hearing more voices with increased paranoia, disorganized behavior and feeling unsafe. He was assessed by crisis and transferring to this facility for psychiatric stabilization. On admission, the patient complained of feeling very anxious with intrusive thoughts. He was perseverative during the interview stating that he was receiving back in the days clozapine 575 mg and he wants Clozaril back again. He stated that the dose his psychotic symptoms were under control. He is fully aware of risks, benefits, side-effects and alternatives and he wants to be treated here. Also, he admitted that he had been having diarrhea for the last days. He was able to contract for safety in the facility and he is willing to follow treatment. We will try to gather more collateral information at this point, we have decided to titrated up his Clozaril more aggressively. Past Psychiatric History: Inpt:09/2017 [facility], last admission on 2023 at Op: OSWALDO Cho past trials: clozapine, trilafon Medical Evaluation Reviewed: Yes [facility] Medical History Schizophrenia Family History: none Social History: lives alone. no children. Substance History: Denies Trauma History: unknown Diagnostics Vital Signs (24Hr): Vital Signs - 24 hr 07/10/24 15:01 07/10/24 20:34 07/11/24 08:00 Temperature 98 F 97.9 F 97.7 F Pulse Rate 88 96 97 Respiratory Rate 16 18 16 Blood Pressure 136/80 109/60 106/66 Pulse Oximetry 97 98 97 Oxygen Delivery Method Room Air Room Air Room Air BMI result Body Mass Index 27.4 Labs 07/11/24 07:37 Labs: Laboratory Results - last 48 hr 07/11/24 07:37 Sodium 142 Potassium 3.2 L Chloride 106 Carbon Dioxide 27 Anion Gap 12 BUN 19 H Creatinine 0.84 Estim Creat Clear Calc 92.8 Estimated GFR > 60 Fasting Glucose 102 H Estimat Average Glucose 103 Hemoglobin A1c % 5.2 Calcium 9.3 Magnesium 2.1 Total Bilirubin 0.4 AST 16 ALT 20 Alkaline Phosphatase 77 Total Protein 6.8 Albumin 4.2 Triglycerides 96 Cholesterol 138 LDL Cholesterol, Calc 71 HDL Cholesterol 48 TSH 2.56 Meds/Allergies Meds Home Medications ?Medication ?Instructions ?Recorded ?Confirmed ?Type perphenazine 2 mg tablet 2 mg PO DAILY 07/11/24 07/11/24 History Allergies Allergies Allergy/AdvReac Type Severity Reaction Status Date / Time No Known Allergies Allergy Verified 06/28/24 18:37 Mental Status Exam Mental Status Exam Patient Appearance: Appropriate (Casually dressed) Patient Orientation: Person and Situation Level of Consciousness: Awake and Appropriate Patient Behavior: Guarded and Passive Mood Description: Withdrawn Affect Description: Constricted Ability to Follow Directions: Good Speech Pattern: Clear Hallucinations: Auditory Delusions: Paranoid Ideation and Ideas of Reference Thought Process: Illogical, Distracted and Evasive Thought Content: positive for Loose Associations and positive for Tangential Judgement: Fair Assessment & Plan Assessment & Plan (1) Schizophrenia: Status: Acute Qualifiers: Schizophrenia type: unspecified Qualified Code(s): F20.9 - Schizophrenia, unspecified Code(s): F20.9 - Schizophrenia, unspecified Plan The patient is a 54-year-old male, single, with no children, with good social support with a past history of schizophrenia, on Clozaril, followed by [facility] as an outpatient, who was readmitted after discharge for relapse of psychotic symptoms. During the interview, the patient was adamant that he wants to have his Clozaril back adjusted up to 575 they used to be therapeutic for him. Plan 1. Gather collateral information. 2. 15 minutes checks since the patient is able to contract for safety. 3. Increase Clozaril up to 250 mg p.o. q.h.s.. 4. Continue with medical workout. 5. Reassessment with results. 6. Continue p.r.n. Ativan. Patient educated on: diagnosis, medication risk/benefits and medical condition Reason for continued inpatient stay Substantial Risk for: inability to function, rapid decompensation and med/psych decompensation Statement Statement: I have reviewed the history and physical and performed a pertinent examination on my patient. No changes have occurred unless specified. If the History and Physical was not performed prior to admission, the Hospitalist's service will be consulted for completing the admission physical. Time Spent With Patient Time: Total time managing care of this patient today _45___ minutes.
[2024-07-11] MEDS: Loperamide HCl 2 MG CAPSULE 4 MG PO (11:58)
[2024-07-11 20:00] VITALS: BP 124/66; PULSE 88; RESP 16; TEMP 36.7; O2SAT 98
[2024-07-11] MEDS: cloZAPine 25 MG TABLET 250 MG PO (21:27)
[2024-07-11] MEDS: Perphenazine 8 MG TABLET PO (21:27)
[2024-07-11] MEDS: traZODone HCL 50 MG TABLET PO (21:28)
[2024-07-12 07:38] LABS: Neut%MD 55.6 %; Neutrophils Absolute Auto 5.6 x10*3/uL (2.0-8.3); WBCANC 10.1 X10*3/uL
[2024-07-12 08:00] VITALS: BP 133/73; PULSE 100; RESP 16; TEMP 36.6; O2SAT 96
[2024-07-12] MEDS: Perphenazine 2 MG TABLET 6 MG PO (08:33)
[2024-07-12] MEDS: clonazePAM 1 MG TABLET PO (08:34)
--- NOTE | 2024-07-12 13:49 | HO.PSYCHPN ---
Subjective Subjective Date of Service: 07/12/24 Reason For Visit: Unspecified schizophrenia Subjective Notes: Conditional Voluntary and 3 Day Interim History: The nursing staff reported the patient had been compliant with treatment he had been requesting several things. First of all he wants his Prozac at night and he wants a change in his Clozaril, the pharmacy has been giving 25 mg tablets and he needs to take 10 and he was overwhelmed. Today we discussed options and he agreed to change it at night the Prozac, start vitamin-D and multivitamins as per his request and we increased Clozaril up to 300 mg at night. Mental Status Exam Mental Status Exam Patient Appearance: Appropriate Patient Orientation: Person and Situation Level of Consciousness: Awake and Appropriate Patient Behavior: Guarded and Passive Mood Description: Withdrawn Affect Description: Constricted Patient Cognition Impaired: Yes Ability to Follow Directions: Good Speech Pattern: Clear Hallucinations: None Delusions: Ideas of Reference Thought Process: Distracted and Slowed Thinking Thought Content: positive for Rufe and positive for Poverty of Content Judgement: Fair Diagnostics Vital Signs (24Hr): Vital Signs - 24 hr 07/11/24 20:00 07/12/24 08:00 Temperature 98.1 F 97.8 F Pulse Rate 88 100 Respiratory Rate 16 16 Blood Pressure 124/66 133/73 Pulse Oximetry 98 96 Oxygen Delivery Method Room Air Room Air BMI result Body Mass Index 27.4 Labs 07/11/24 07:37 Labs: Laboratory Results - last 48 hr 07/11/24 07/12/24 07:37 07:25 Absolute Neuts (auto) 5.6 Sodium 142 Potassium 3.2 L Chloride 106 Carbon Dioxide 27 Anion Gap 12 BUN 19 H Creatinine 0.84 Estim Creat Clear Calc 92.8 Estimated GFR > 60 Fasting Glucose 102 H Estimat Average Glucose 103 Hemoglobin A1c % 5.2 Calcium 9.3 Magnesium 2.1 Total Bilirubin 0.4 AST 16 ALT 20 Alkaline Phosphatase 77 Total Protein 6.8 Albumin 4.2 Triglycerides 96 Cholesterol 138 LDL Cholesterol, Calc 71 HDL Cholesterol 48 TSH 2.56 Medications Medications Current Medications Acetaminophen (Acetaminophen 325 Mg Tablet) 650 mg PO Q6H PRN PRN Reason: Headache/Pain Mild Scale (1-3) Al Hydroxide/Mg Hydroxide (Magnesium Hydrox/Alum Hydrox 30 Ml Oral.Susp) 30 ml PO Q6H PRN PRN Reason: Heartburn/Nausea Clonazepam (Clonazepam 1 Mg Tablet) 1 mg PO DAILY CLARA Last Admin: 07/12/24 08:34 Dose: 1 mg Clonazepam (Clonazepam 0.5 Mg Tablet) 0.5 mg PO BID PRN PRN Reason: Anxiety Last Admin: 07/11/24 11:24 Dose: 0.5 mg Clozapine (Clozapine 100 Mg Tablet) 300 mg PO BEDTIME CLARA Fluoxetine HCl (Fluoxetine Hcl 20 Mg Capsule) 20 mg PO BEDTIME CLARA Loperamide HCl (Loperamide Hcl 2 Mg Capsule) 4 mg PO Q4H PRN PRN Reason: Diarrhea Last Admin: 07/11/24 11:58 Dose: 4 mg Magnesium Hydroxide (Milk Of Magnesia 30 Ml Oral.Susp) 30 ml PO DAILY PRN PRN Reason: Constipation Multivitamins/Vitamin C (Multivitamin Tablet) 1 tab PO BEDTIME CLARA Nicotine (Nicotine 21 Mg Patch.Td24) 21 mg TRANSDERMA DAILY PRN PRN Reason: smoking cessation Nicotine Polacrilex (Nicotine Polacrilex 2 Mg Gum) 4 mg BUCCAL Q2H PRN PRN Reason: Nicotine Cravings Olanzapine (Olanzapine 2.5 Mg Tablet) 2.5 mg PO TID PRN PRN Reason: agitation Last Admin: 07/10/24 20:30 Dose: 2.5 mg Perphenazine (Perphenazine 8 Mg Tablet) 8 mg PO BEDTIME CLARA Last Admin: 07/11/24 21:27 Dose: 8 mg Perphenazine (Perphenazine 2 Mg Tablet) 6 mg PO DAILY [facility] Last Admin: 07/12/24 08:33 Dose: 6 mg Trazodone HCl (Trazodone Hcl 50 Mg Tablet) 50 mg PO BEDTIME MRX1 PRN PRN Reason: Insomnia Last Admin: 07/11/24 21:28 Dose: 50 mg Vitamin D (Cholecalciferol (Vitamin D3) 10 Mcg Tablet) 10 mcg PO DAILY [facility] Allergies Allergies Allergy/AdvReac Type Severity Reaction Status Date / Time No Known Allergies Allergy Verified 06/28/24 18:37 Assessment & Plan Assessment & Plan (1) Schizophrenia: Qualifiers: Schizophrenia type: unspecified Qualified Code(s): F20.9 - Schizophrenia, unspecified Status: Acute Code(s): F20.9 - Schizophrenia, unspecified Plan The patient is a 54-year-old male, single, with no children, with good social support with a past history of schizophrenia, on Clozaril, followed by [facility] as an outpatient, who was readmitted after discharge for relapse of psychotic symptoms. During the interview, the patient was adamant that he wants to have his Clozaril back adjusted up to 575 they used to be therapeutic for him. Plan 1. Gather collateral information. 2. 15 minutes checks since the patient is able to contract for safety. 3. Increase Clozaril up to 250 mg p.o. q.h.s.. On July 12 we increase it up to 300 mg p.o. q.h.s. 4. Continue with medical workout. 5. Reassessment with results. 6. Continue p.r.n. Ativan. Reason for continued inpatient stay Substantial Risk for: inability to function, rapid decompensation and med/psych decompensation Time Spent With Patient Time: Total time managing care of this patient today __20__ minutes.
[2024-07-12 20:00] VITALS: BP 133/81; PULSE 102; RESP 16; TEMP 36.6; O2SAT 96
[2024-07-12] MEDS: Perphenazine 8 MG TABLET PO (21:07)
[2024-07-12] MEDS: cloZAPine 100 MG TABLET 300 MG PO (21:07)
[2024-07-12] MEDS: FLUoxetine HCl 20 MG CAPSULE PO (21:07)
[2024-07-12] MEDS: traZODone HCL 50 MG TABLET PO (21:13)
[2024-07-12] MEDS: Loperamide HCl 2 MG CAPSULE 4 MG PO (21:13)
[2024-07-13 08:00] VITALS: BP 121/74; PULSE 100; RESP 16; TEMP 36.9; O2SAT 96
[2024-07-13] MEDS: Perphenazine 2 MG TABLET 6 MG PO (09:16)
[2024-07-13] MEDS: Cholecalciferol (Vitamin D3) 10 MCG TABLET PO (09:16)
[2024-07-13] MEDS: clonazePAM 1 MG TABLET PO (09:16)
--- NOTE | 2024-07-13 09:47 | HO.PSYCHPN ---
Subjective Subjective Date of Service: 07/13/24 Reason For Visit: Unspecified schizophrenia Interim History: met with patient; discussed with team pt signed a 3 day notice, saying i'm being treated unfairly here by staff.... On inquiry he says you know what's going on... and would not give any examples. He says i'm snowballing here...i just want to go home, get my mind settled... i realize what's going on...being pushed around by staff... he feels publicity writer is pushing him around too, but could not say how. im tired of being pushed around...just do your jobs. says AH is bothersome and all day long, both good and bad... hearing AH to say get out of bed or it will be the end of the world... Pt says he wants Clozapine titrated faster and wants to go up by 50mg a day; publicity writer discussed reasons for approaching a slower titration, however patient irritated by answers and says he will tolerate it fine by increasing by 50mg. Sheep And Wheat Farmer discussed pt retracting 3 day to stay longer for Clozapine titration, given that he was re-admitted after only a few days, indicating need for longer stay Medication Compliance: Intermittent Mental Status Exam Mental Status Exam Narrative: Pt is alert and oriented; behavior guarded and suspicious, standing in hallway by himself; patient is not in distress; dressed in casual attire with adequate hygiene; mood is described as ok and affect constricted; eye contact appropriate; Speech is normal rate, volume and prosody and not pressured; no psychomotor agitation/retardation present; thought process is goal directed; Thought content is on paranoid delusions, aliens...; currently denies any SI/HI. Reports AH Patients insight and judgment impaired. Diagnostics Vital Signs (24Hr): Vital Signs - 24 hr 07/12/24 20:00 07/13/24 08:00 Temperature 97.8 F 98.5 F Pulse Rate 102 H 100 Respiratory Rate 16 16 Blood Pressure 133/81 121/74 Pulse Oximetry 96 96 Oxygen Delivery Method Room Air BMI result Body Mass Index 27.4 Labs 07/11/24 07:37 Labs: Laboratory Results - last 48 hr 07/12/24 07:25 Absolute Neuts (auto) 5.6 Medications Medications Current Medications Acetaminophen (Acetaminophen 325 Mg Tablet) 650 mg PO Q6H PRN PRN Reason: Headache/Pain Mild Scale (1-3) Al Hydroxide/Mg Hydroxide (Magnesium Hydrox/Alum Hydrox 30 Ml Oral.Susp) 30 ml PO Q6H PRN PRN Reason: Heartburn/Nausea Clonazepam (Clonazepam 1 Mg Tablet) 1 mg PO DAILY CLARA Last Admin: 07/13/24 09:16 Dose: 1 mg Clonazepam (Clonazepam 0.5 Mg Tablet) 0.5 mg PO BID PRN PRN Reason: Anxiety Last Admin: 07/11/24 11:24 Dose: 0.5 mg Clozapine (Clozapine 100 Mg Tablet) 300 mg PO BEDTIME CLARA Last Admin: 07/12/24 21:07 Dose: 300 mg Fluoxetine HCl (Fluoxetine Hcl 20 Mg Capsule) 20 mg PO BEDTIME CLARA Last Admin: 07/12/24 21:07 Dose: 20 mg Loperamide HCl (Loperamide Hcl 2 Mg Capsule) 4 mg PO Q4H PRN PRN Reason: Diarrhea Last Admin: 07/12/24 21:13 Dose: 4 mg Magnesium Hydroxide (Milk Of Magnesia 30 Ml Oral.Susp) 30 ml PO DAILY PRN PRN Reason: Constipation Multivitamins/Vitamin C (Multivitamin Tablet) 1 tab PO BEDTIME CLARA Last Admin: 07/12/24 21:10 Dose: Not Given Nicotine (Nicotine 21 Mg Patch.Td24) 21 mg TRANSDERMA DAILY PRN PRN Reason: smoking cessation Nicotine Polacrilex (Nicotine Polacrilex 2 Mg Gum) 4 mg BUCCAL Q2H PRN PRN Reason: Nicotine Cravings Olanzapine (Olanzapine 2.5 Mg Tablet) 2.5 mg PO TID PRN PRN Reason: agitation Last Admin: 07/10/24 20:30 Dose: 2.5 mg Perphenazine (Perphenazine 8 Mg Tablet) 8 mg PO BEDTIME CLARA Last Admin: 07/12/24 21:07 Dose: 8 mg Perphenazine (Perphenazine 2 Mg Tablet) 6 mg PO DAILY CLARA Last Admin: 07/13/24 09:16 Dose: 6 mg Trazodone HCl (Trazodone Hcl 50 Mg Tablet) 50 mg PO BEDTIME MRX1 PRN PRN Reason: Insomnia Last Admin: 07/12/24 21:13 Dose: 50 mg Vitamin D (Cholecalciferol (Vitamin D3) 10 Mcg Tablet) 10 mcg PO DAILY CLARA Last Admin: 07/13/24 09:16 Dose: 10 mcg Allergies Allergies Allergy/AdvReac Type Severity Reaction Status Date / Time No Known Allergies Allergy Verified 06/28/24 18:37 Assessment & Plan Assessment & Plan (1) Schizophrenia: Qualifiers: Schizophrenia type: unspecified Qualified Code(s): F20.9 - Schizophrenia, unspecified Status: Acute Code(s): F20.9 - Schizophrenia, unspecified Plan The patient is a 54-year-old male, single, with no children, with good social support with a past history of schizophrenia, on Clozaril, followed by [facility] as an outpatient, who was readmitted after discharge for relapse of psychotic symptoms. During the interview, the patient was adamant that he wants to have his Clozaril back adjusted up to 575 they used to be therapeutic for him. -stable since 2016 -At [place] this past June, was catatonic (not eating/drinking), resolved with ativan, then got aggressive...got pneumonia, RAJIV and was transferred to and discharged soon after. Went to [facility] but there, expressed Aliens tormenting him, controlling his brain, SI and HI so sent back Hospital course: 07/13 pt signed a 3 day notice, saying i'm being treated unfairly here by staff.... On inquiry he says you know what's going on... and would not give any examples. He says i'm snowballing here...i just want to go home, get my mind settled... i realize what's going on...being pushed around by staff... he feels publicity writer is pushing him around too, but could not say how. im tired of being pushed around...just do your jobs. Says AH is bothersome and all day long, both good and bad... hearing AH to say get out of bed or it will be the end of the world... Talking about Aliens Pt says he wants Clozapine titrated faster and wants to go up by 50mg a day; publicity writer discussed reasons for approaching a slower titration, however patient irritated by answers and says he will tolerate it fine by increasing by 50mg. Sheep And Wheat Farmer discussed pt retracting 3 day to stay longer for Clozapine titration, given that he was re-admitted after only a few days, indicating need for longer stay Plan 3 day. q15 min Increase Clozaril up to 350mg p.o. q.h.s.. collateral Patient educated on: diagnosis and medication risk/benefits Informed Consent: understands, does not understand and further education needed Reason for continued inpatient stay Substantial Risk for: rapid decompensation Time Spent With Patient Time: Total time managing care of this patient today ____ minutes.
[2024-07-13 20:00] VITALS: BP 108/57; PULSE 81; TEMP 36.9
[2024-07-13] MEDS: cloZAPine 25 MG TABLET 350 MG PO (21:03)
[2024-07-13] MEDS: FLUoxetine HCl 20 MG CAPSULE PO (21:05)
[2024-07-13] MEDS: Perphenazine 8 MG TABLET PO (21:06)
[2024-07-13] MEDS: traZODone HCL 50 MG TABLET PO (21:06)
[2024-07-14 08:00] VITALS: BP 115/69; PULSE 93; RESP 16; TEMP 37.1; O2SAT 97
[2024-07-14] MEDS: Perphenazine 2 MG TABLET 6 MG PO (09:12)
[2024-07-14] MEDS: clonazePAM 1 MG TABLET PO (09:12)
[2024-07-14] MEDS: Cholecalciferol (Vitamin D3) 10 MCG TABLET PO (09:12)
--- NOTE | 2024-07-14 09:58 | P.PNPSI_ITS ---
Subjective Subjective Date of Service: 07/14/24 Reason For Visit: Unspecified schizophrenia Interim History: Met with patient; discussed with team Patient reports that he slept better last night with increased Clozaril. Continues to strongly advocate for continued titration to which functional tester typewriters agrees. Patient reports that AH remains and that it is all bad.. Patient said he decided to retract his 3 day notice because he is not thinking right and needs to get right with himself. Intermittently still complains of staff treated him unfairly though can not give specifics. Mental Status Exam Mental Status Exam Narrative: Pt is alert and oriented; behavior guarded and suspicious, but cooperative, calm standing in hallway at same location by himself much of the day; patient is not in distress; dressed in casual attire with adequate hygiene; mood is described as ok and affect constricted; eye contact appropriate; Speech is normal rate, volume and prosody and not pressured; psychomotor retardation present; thought process is goal directed; Thought content is on medication; intermittently expressing paranoid delusions, aliens...; currently denies any SI/HI. Reports Patients insight and judgment impaired. Diagnostics Vital Signs (24Hr): Vital Signs - 24 hr 07/13/24 20:00 07/14/24 08:00 Temperature 98.4 F 98.7 F Pulse Rate 81 93 Respiratory Rate 16 Blood Pressure 108/57 L 115/69 Pulse Oximetry 97 Oxygen Delivery Method Room Air BMI result Body Mass Index 27.4 Labs 07/11/24 07:37 Medications Medications Current Medications Acetaminophen (Acetaminophen 325 Mg Tablet) 650 mg PO Q6H PRN PRN Reason: Headache/Pain Mild Scale (1-3) Al Hydroxide/Mg Hydroxide (Magnesium Hydrox/Alum Hydrox 30 Ml Oral.Susp) 30 ml PO Q6H PRN PRN Reason: Heartburn/Nausea Clonazepam (Clonazepam 1 Mg Tablet) 1 mg PO DAILY CLARA Last Admin: 07/14/24 09:12 Dose: 1 mg Clonazepam (Clonazepam 0.5 Mg Tablet) 0.5 mg PO BID PRN PRN Reason: Anxiety Last Admin: 07/11/24 11:24 Dose: 0.5 mg Clozapine (Clozapine 25 Mg Tablet) 350 mg PO BEDTIME CLARA Last Admin: 07/13/24 21:03 Dose: 350 mg Fluoxetine HCl (Fluoxetine Hcl 20 Mg Capsule) 20 mg PO BEDTIME CLARA Last Admin: 07/13/24 21:05 Dose: 20 mg Loperamide HCl (Loperamide Hcl 2 Mg Capsule) 4 mg PO Q4H PRN PRN Reason: Diarrhea Last Admin: 07/12/24 21:13 Dose: 4 mg Magnesium Hydroxide (Milk Of Magnesia 30 Ml Oral.Susp) 30 ml PO DAILY PRN PRN Reason: Constipation Multivitamins/Vitamin C (Multivitamin Tablet) 1 tab PO BEDTIME CLARA Last Admin: 07/13/24 21:09 Dose: Not Given Nicotine (Nicotine 21 Mg Patch.Td24) 21 mg TRANSDERMA DAILY PRN PRN Reason: smoking cessation Nicotine Polacrilex (Nicotine Polacrilex 2 Mg Gum) 4 mg BUCCAL Q2H PRN PRN Reason: Nicotine Cravings Olanzapine (Olanzapine 2.5 Mg Tablet) 2.5 mg PO TID PRN PRN Reason: agitation Last Admin: 07/10/24 20:30 Dose: 2.5 mg Perphenazine (Perphenazine 8 Mg Tablet) 8 mg PO BEDTIME CLARA Last Admin: 07/13/24 21:06 Dose: 8 mg Perphenazine (Perphenazine 2 Mg Tablet) 6 mg PO DAILY CLARA Last Admin: 07/14/24 09:12 Dose: 6 mg Trazodone HCl (Trazodone Hcl 50 Mg Tablet) 50 mg PO BEDTIME MRX1 PRN PRN Reason: Insomnia Last Admin: 07/13/24 21:06 Dose: 50 mg Vitamin D (Cholecalciferol (Vitamin D3) 10 Mcg Tablet) 10 mcg PO DAILY CLARA Last Admin: 07/14/24 09:12 Dose: 10 mcg Allergies Allergies Allergy/AdvReac Type Severity Reaction Status Date / Time No Known Allergies Allergy Verified 06/28/24 18:37 Assessment & Plan Assessment & Plan (1) Schizophrenia: Qualifiers: Schizophrenia type: unspecified Qualified Code(s): F20.9 - Schizophrenia, unspecified Status: Acute Code(s): F20.9 - Schizophrenia, unspecified Plan The patient is a 54-year-old male, single, with no children, with good social support with a past history of schizophrenia, on Clozaril, followed by [facility] as an outpatient, who was readmitted after discharge for relapse of psychotic symptoms. During the interview, the patient was adamant that he wants to have his Clozaril back adjusted up to 575 they used to be therapeutic for him. -stable since 2016 -At [place] this past June, was catatonic (not eating/drinking), resolved with ativan, then got aggressive...got pneumonia, RAJIV and was transferred to [facility] and discharged soon after. Went to [facility] but there, expressed Aliens tormenting him, controlling his brain, SI and HI so sent back Hospital course: 07/13 pt signed a 3 day notice, saying i'm being treated unfairly here by staff.... On inquiry he says you know what's going on... and would not give any examples. He says i'm snowballing here...i just want to go home, get my mind settled... i realize what's going on...being pushed around by staff... he feels functional tester typewriters is pushing him around too, but could not say how. im tired of being pushed around...just do your jobs. Says AH is bothersome and all day long, both good and bad... hearing AH to say get out of bed or it will be the end of the world... Talking about Aliens Pt says he wants Clozapine titrated faster and wants to go up by 50mg a day; functional tester typewriters discussed reasons for approaching a slower titration, however patient irritated by answers and says he will tolerate it fine by increasing by 50mg. Auto Repair Technician discussed pt retracting 3 day to stay longer for Clozapine titration, given that he was re-admitted after only a few days, indicating need for longer stay /10 continues to have AH that is quite bothersome; guarded, suspicious but cooperative. Retracted 3 day notice saying he realizes he needs to stay longer; wants Clozaril titrated -loose stool before admission; hx of on/off constipation/loose stool roomate enteropathic ecoli so hospitalist recommends that patient get stool culture as well Plan CV q15 min Increase Clozaril up to 375mg p.o. q.h.s.. collateral Patient educated on: diagnosis and medication risk/benefits Informed Consent: understands and further education needed Reason for continued inpatient stay Substantial Risk for: inability to function Time Spent With Patient Time: Total time managing care of this patient today ____ minutes.
[2024-07-14 20:00] VITALS: BP 122/64; PULSE 93; TEMP 36.9; O2SAT 98
[2024-07-14] MEDS: cloZAPine 25 MG TABLET 375 MG PO (20:43)
[2024-07-14] MEDS: Multivitamin TABLET 1 TAB PO (20:48)
[2024-07-14] MEDS: FLUoxetine HCl 20 MG CAPSULE PO (20:49)
[2024-07-14] MEDS: Perphenazine 8 MG TABLET PO (20:49)
[2024-07-14] MEDS: traZODone HCL 50 MG TABLET PO (20:49)
[2024-07-15 08:00] VITALS: BP 118/59; PULSE 98; RESP 14; TEMP 36.7; O2SAT 99
[2024-07-15] MEDS: Perphenazine 2 MG TABLET 6 MG PO (08:54)
[2024-07-15] MEDS: clonazePAM 1 MG TABLET PO (08:55)
[2024-07-15] MEDS: Cholecalciferol (Vitamin D3) 10 MCG TABLET PO (08:55)
--- NOTE | 2024-07-15 15:05 | P.PNPSI_ITS ---
Subjective Subjective Date of Service: 07/15/24 Reason For Visit: Unspecified schizophrenia Interim History: Met with patient; discussed with team Patient said he still sleeping well. AH very bothersome and not any better; wants Clozaril titrated. Patient getting quite frustrated with principal technical writer because his Clozaril medication is coming in multiple pills to make up full dose; principal technical writer tried to explain that pharmacy will try to make a combination to give him the fewest pills possible, however patient keeps saying Your talking in circles.. Just do your job... Patient seemed to accept that efforts are being made to this end. Continues to branch lending manager 1 location in the hallway for much of the day Mental Status Exam Mental Status Exam Narrative: Pt is alert and oriented; behavior guarded and suspicious, but cooperative, calm standing in hallway at same location by himself much of the day; patient is not in distress; dressed in casual attire with adequate hygiene; mood is described as ok and affect constricted; eye contact appropriate; Speech is normal rate, volume and prosody and not pressured; psychomotor retardation present; thought process is goal directed; Thought content is on medication; intermittently expressing paranoid delusions, aliens...; currently denies any SI/HI. Reports AH Patients insight and judgment impaired. Diagnostics Vital Signs (24Hr): Vital Signs - 24 hr 07/14/24 20:00 07/15/24 08:00 Temperature 98.5 F 98.1 F Pulse Rate 93 98 Respiratory Rate 14 Blood Pressure 122/64 118/59 L Pulse Oximetry 98 99 Oxygen Delivery Method Room Air Room Air BMI result Body Mass Index 27.4 Labs 07/11/24 07:37 Medications Medications Current Medications Acetaminophen (Acetaminophen 325 Mg Tablet) 650 mg PO Q6H PRN PRN Reason: Headache/Pain Mild Scale (1-3) Al Hydroxide/Mg Hydroxide (Magnesium Hydrox/Alum Hydrox 30 Ml Oral.Susp) 30 ml PO Q6H PRN PRN Reason: Heartburn/Nausea Clonazepam (Clonazepam 1 Mg Tablet) 1 mg PO DAILY CLARA Last Admin: 07/15/24 08:55 Dose: 1 mg Clonazepam (Clonazepam 0.5 Mg Tablet) 0.5 mg PO BID PRN PRN Reason: Anxiety Last Admin: 07/11/24 11:24 Dose: 0.5 mg Clozapine (Clozapine 100 Mg Tablet) 400 mg PO BEDTIME CLARA Fluoxetine HCl (Fluoxetine Hcl 20 Mg Capsule) 20 mg PO BEDTIME CLARA Last Admin: 07/14/24 20:49 Dose: 20 mg Magnesium Hydroxide (Milk Of Magnesia 30 Ml Oral.Susp) 30 ml PO DAILY PRN PRN Reason: Constipation Multivitamins/Vitamin C (Multivitamin Tablet) 1 tab PO BEDTIME CLARA Last Admin: 07/14/24 20:48 Dose: 1 tab Nicotine (Nicotine 21 Mg Patch.Td24) 21 mg TRANSDERMA DAILY PRN PRN Reason: smoking cessation Nicotine Polacrilex (Nicotine Polacrilex 2 Mg Gum) 4 mg BUCCAL Q2H PRN PRN Reason: Nicotine Cravings Patient Own Medication (Centrum Silver - Adults 50+) 1 each PO DAILY [facility] Olanzapine (Olanzapine 2.5 Mg Tablet) 2.5 mg PO TID PRN PRN Reason: agitation Last Admin: 07/10/24 20:30 Dose: 2.5 mg Perphenazine (Perphenazine 8 Mg Tablet) 8 mg PO BEDTIME [facility] Last Admin: 07/14/24 20:49 Dose: 8 mg Perphenazine (Perphenazine 2 Mg Tablet) 6 mg PO DAILY [facility] Last Admin: 07/15/24 08:54 Dose: 6 mg Trazodone HCl (Trazodone Hcl 50 Mg Tablet) 50 mg PO BEDTIME MRX1 PRN PRN Reason: Insomnia Last Admin: 07/14/24 20:49 Dose: 50 mg Vitamin D (Cholecalciferol (Vitamin D3) 10 Mcg Tablet) 10 mcg PO DAILY [facility] Last Admin: 07/15/24 08:55 Dose: 10 mcg Allergies Allergies Allergy/AdvReac Type Severity Reaction Status Date / Time No Known Allergies Allergy Verified 06/28/24 18:37 Assessment & Plan Assessment & Plan (1) Schizophrenia: Qualifiers: Schizophrenia type: unspecified Qualified Code(s): F20.9 - Schizophrenia, unspecified Status: Acute Code(s): F20.9 - Schizophrenia, unspecified Plan The patient is a 54-year-old male, single, with no children, with good social support with a past history of schizophrenia, on Clozaril, followed by [facility] as an outpatient, who was readmitted after discharge for relapse of psychotic symptoms. During the interview, the patient was adamant that he wants to have his Clozaril back adjusted up to 575 they used to be therapeutic for him. -stable since 2017 -At [place] this past June, was catatonic (not eating/drinking), resolved with ativan, then got aggressive...got pneumonia, RAJIV and was transferred to [facility] and discharged soon after. Went to [facility] but there, expressed Aliens tormenting him, controlling his brain, SI and HI so sent back Hospital course: 07/13 pt signed a 3 day notice, saying i'm being treated unfairly here by staff.... On inquiry he says you know what's going on... and would not give any examples. He says i'm snowballing here...i just want to go home, get my mind settled... i realize what's going on...being pushed around by staff... he feels principal technical writer is pushing him around too, but could not say how. im tired of being pushed around...just do your jobs. Says AH is bothersome and all day long, both good and bad... hearing AH to say get out of bed or it will be the end of the world... Talking about Aliens Pt says he wants Clozapine titrated faster and wants to go up by 50mg a day; principal technical writer discussed reasons for approaching a slower titration, however patient irritated by answers and says he will tolerate it fine by increasing by 50mg. Crm Specialist discussed pt retracting 3 day to stay longer for Clozapine titration, given that he was re-admitted after only a few days, indicating need for longer stay 07/14 continues to have AH that is quite bothersome; guarded, suspicious but cooperative. Retracted 3 day notice saying he realizes he needs to stay longer; wants Clozaril titrated -loose stool before admission; hx of on/off constipation/loose stool roomate enteropathic ecoli so hospitalist recommends that patient get stool culture as well 07/15 continue treatment plan; will further titrate Clozaril. No change in presentation. [facility] out reach workers medicated with SW and strongly advocate for patient to remain on psychiatric unit to continue with medication management so that he can stabilize Plan CV q15 min Increase Clozaril up to 400mg p.o. q.h.s.. collateral Patient educated on: diagnosis and medication risk/benefits Informed Consent: understands and further education needed Reason for continued inpatient stay Substantial Risk for: inability to function Time Spent With Patient Time: Total time managing care of this patient today ____ minutes.
[2024-07-15 20:00] VITALS: BP 123/66; PULSE 99; RESP 18; TEMP 36.4; O2SAT 97
[2024-07-15] MEDS: traZODone HCL 50 MG TABLET PO (20:01)
[2024-07-15] MEDS: FLUoxetine HCl 20 MG CAPSULE PO (20:01)
[2024-07-15] MEDS: Multivitamin TABLET 1 TAB PO (20:01)
[2024-07-15] MEDS: cloZAPine 100 MG TABLET 400 MG PO (20:01)
[2024-07-15] MEDS: Perphenazine 8 MG TABLET PO (20:01)
[2024-07-16 07:00] VITALS: BMI 28.3
[2024-07-16 08:08] VITALS: BP 120/70; PULSE 107; RESP 18; TEMP 36.8; O2SAT 96
[2024-07-16] MEDS: Cholecalciferol (Vitamin D3) 10 MCG TABLET PO (08:34)
[2024-07-16] MEDS: Perphenazine 2 MG TABLET 6 MG PO (08:34)
[2024-07-16] MEDS: clonazePAM 1 MG TABLET PO (08:34)
--- NOTE | 2024-07-16 09:27 | P.PNPSI_ITS ---
Subjective Subjective Date of Service: 07/16/24 Reason For Visit: Unspecified schizophrenia Interim History: Met with Patient; discussed with team; discussed case with pt's outpt provider Dr. Cho Patient guarded, suspicious, anxious; continues to report that people are lying against him. Initially patient upset that sba underwriter was only increasing clozapine dose by 25 mg per day instead of 50 mg per day, saying sba underwriter lied to him and is misleading him, playing games... sba underwriter again explained reasoning behind it and eventually patient seemed to accept this and agreed to 25 mg increase per day. He said he was last on his home dose of 475 mg about 4 weeks ago. Patient again asked sba underwriter to please do your job... Spoke with patient's outpatient provider, Dr. Cho who strongly advocates for patient to remain inpatient until clozapine dose back to home dose of 575mg; otherwise concern is for quick returned to the hospital Mental Status Exam Mental Status Exam Narrative: Pt is alert and oriented; behavior guarded and suspicious, but cooperative, calm standing in hallway at same location by himself much of the day; patient is not in distress; dressed in casual attire with adequate hygiene; mood is described as ok and affect constricted; eye contact appropriate; Speech is normal rate, volume and prosody and not pressured; psychomotor retardation present; thought process is goal directed; Thought content is on medication; intermittently expressing paranoid delusions, aliens...; currently denies any SI/HI. Reports AH Patients insight and judgment impaired. Diagnostics Vital Signs (24Hr): Vital Signs - 24 hr 07/15/24 20:00 07/16/24 08:08 Temperature 97.5 F 98.3 F Pulse Rate 99 107 H Respiratory Rate 18 18 Blood Pressure 123/66 120/70 Pulse Oximetry 97 96 Oxygen Delivery Method Room Air Room Air BMI result Body Mass Index 27.4 Labs 07/11/24 07:37 Medications Medications Current Medications Acetaminophen (Acetaminophen 325 Mg Tablet) 650 mg PO Q6H PRN PRN Reason: Headache/Pain Mild Scale (1-3) Al Hydroxide/Mg Hydroxide (Magnesium Hydrox/Alum Hydrox 30 Ml Oral.Susp) 30 ml PO Q6H PRN PRN Reason: Heartburn/Nausea Clonazepam (Clonazepam 1 Mg Tablet) 1 mg PO DAILY CLARA Last Admin: 07/16/24 08:34 Dose: 1 mg Clonazepam (Clonazepam 0.5 Mg Tablet) 0.5 mg PO BID PRN PRN Reason: Anxiety Last Admin: 07/11/24 11:24 Dose: 0.5 mg Clozapine (Clozapine 100 Mg Tablet) 400 mg PO BEDTIME CLARA Last Admin: 07/15/24 20:01 Dose: 400 mg Fluoxetine HCl (Fluoxetine Hcl 20 Mg Capsule) 20 mg PO BEDTIME CLARA Last Admin: 07/15/24 20:01 Dose: 20 mg Magnesium Hydroxide (Milk Of Magnesia 30 Ml Oral.Susp) 30 ml PO DAILY PRN PRN Reason: Constipation Multivitamins/Vitamin C (Multivitamin Tablet) 1 tab PO BEDTIME CLARA Last Admin: 07/15/24 20:01 Dose: 1 tab Nicotine (Nicotine 21 Mg Patch.Td24) 21 mg TRANSDERMA DAILY PRN PRN Reason: smoking cessation Nicotine Polacrilex (Nicotine Polacrilex 2 Mg Gum) 4 mg BUCCAL Q2H PRN PRN Reason: Nicotine Cravings Patient Own Medication (Centrum Silver - Adults 50+) 1 each PO DAILY [facility] Last Admin: 07/16/24 08:34 Dose: 1 each Olanzapine (Olanzapine 2.5 Mg Tablet) 2.5 mg PO TID PRN PRN Reason: agitation Last Admin: 07/10/24 20:30 Dose: 2.5 mg Perphenazine (Perphenazine 8 Mg Tablet) 8 mg PO BEDTIME CLARA Last Admin: 07/15/24 20:01 Dose: 8 mg Perphenazine (Perphenazine 2 Mg Tablet) 6 mg PO DAILY [facility] Last Admin: 07/16/24 08:34 Dose: 6 mg Trazodone HCl (Trazodone Hcl 50 Mg Tablet) 50 mg PO BEDTIME MRX1 PRN PRN Reason: Insomnia Last Admin: 07/15/24 20:01 Dose: 50 mg Vitamin D (Cholecalciferol (Vitamin D3) 10 Mcg Tablet) 10 mcg PO DAILY [facility] Last Admin: 07/16/24 08:34 Dose: 10 mcg Allergies Allergies Allergy/AdvReac Type Severity Reaction Status Date / Time No Known Allergies Allergy Verified 06/28/24 18:37 Assessment & Plan Assessment & Plan (1) Schizophrenia: Qualifiers: Schizophrenia type: unspecified Qualified Code(s): F20.9 - Schizophrenia, unspecified Status: Acute Code(s): F20.9 - Schizophrenia, unspecified Plan The patient is a 54-year-old male, single, with no children, with good social support with a past history of schizophrenia, on Clozaril, followed by [facility] as an outpatient, who was readmitted after discharge for relapse of psychotic symptoms. During the interview, the patient was adamant that he wants to have his Clozaril back adjusted up to 575 they used to be therapeutic for him. -stable since 2016 -At [place] this past June, was catatonic (not eating/drinking), resolved with ativan, then got aggressive...got pneumonia, RAJIV and was transferred to [facility] and discharged soon after. Went to [facility] but there, expressed Aliens tormenting him, controlling his brain, SI and HI so sent back Hospital course: 07/13 pt signed a 3 day notice, saying i'm being treated unfairly here by staff.... On inquiry he says you know what's going on... and would not give any examples. He says i'm snowballing here...i just want to go home, get my mind settled... i realize what's going on...being pushed around by staff... he feels sba underwriter is pushing him around too, but could not say how. im tired of being pushed around...just do your jobs. Says AH is bothersome and all day long, both good and bad... hearing AH to say get out of bed or it will be the end of the world... Talking about Aliens Pt says he wants Clozapine titrated faster and wants to go up by 50mg a day; sba underwriter discussed reasons for approaching a slower titration, however patient irritated by answers and says he will tolerate it fine by increasing by 50mg. [employer] Supervisor discussed pt retracting 3 day to stay longer for Clozapine titration, given that he was re-admitted after only a few days, indicating need for longer stay 07/14 continues to have AH that is quite bothersome; guarded, suspicious but cooperative. Retracted 3 day notice saying he realizes he needs to stay longer; wants Clozaril titrated -loose stool before admission; hx of on/off constipation/loose stool roomate enteropathic ecoli so hospitalist recommends that patient get stool culture as well 07/15 continue treatment plan; will further titrate Clozaril. No change in presentation. [facility] out reach workers medicated with SW and strongly advocate for patient to remain on psychiatric unit to continue with medication management so that he can stabilize 07/16 Patient guarded, suspicious, anxious; continues to report that people are lying against him. Initially patient upset that sba underwriter was only increasing clozapine dose by 25 mg per day instead of 50 mg per day, saying sba underwriter lied to him and is misleading him, playing games... sba underwriter again explained reasoning behind it and eventually patient seemed to accept this and agreed to 25 mg increase per day. He said he was last on his home dose of 475 mg about 4 weeks ago. Patient again asked sba underwriter to please do your job... -Spoke with patient's outpatient provider, Dr. Cho who strongly advocates for patient to remain inpatient until clozapine dose back to home dose of 575mg; otherwise concern is for quick returned to the hospital. [employer] Supervisor agrees Plan 3 day q15 min Increase Clozaril up to 425 mg p.o. q.h.s. will titrate by 25 mg daily back to home dose of 575 mg Continue Clonazepam 1 mg daily; 0.5 b.i.d. p.r.n. Continue Perphenazine 6 mg daily Continue Perphenazine 8 mg q.h.s. Patient educated on: diagnosis and medication risk/benefits Informed Consent: understands, does not understand and further education needed Reason for continued inpatient stay Substantial Risk for: inability to function Time Spent With Patient Time: Total time managing care of this patient today ____ minutes.
[2024-07-16 20:00] VITALS: BP 123/66; PULSE 95; RESP 18; TEMP 36.9; O2SAT 95
[2024-07-16] MEDS: FLUoxetine HCl 20 MG CAPSULE PO (20:50)
[2024-07-16] MEDS: cloZAPine 100 MG TABLET 400 MG PO (20:50)
[2024-07-16] MEDS: Multivitamin TABLET 1 TAB PO (20:50)
[2024-07-16] MEDS: cloZAPine 25 MG TABLET PO (20:51)
[2024-07-16] MEDS: Perphenazine 8 MG TABLET PO (20:51)
[2024-07-17 08:00] VITALS: BP 109/69; PULSE 109; RESP 18; TEMP 36.9; O2SAT 97
[2024-07-17] MEDS: Perphenazine 2 MG TABLET 6 MG PO (08:30)
[2024-07-17] MEDS: clonazePAM 1 MG TABLET PO (08:30)
[2024-07-17] MEDS: Cholecalciferol (Vitamin D3) 10 MCG TABLET PO (08:30)
[2024-07-17 19:54] VITALS: BP 101/64; PULSE 103; RESP 15; TEMP 36.6; O2SAT 99
[2024-07-17] MEDS: cloZAPine 100 MG TABLET 400 MG PO (20:04)
[2024-07-17] MEDS: Perphenazine 8 MG TABLET PO (20:05)
[2024-07-17] MEDS: Multivitamin TABLET 1 TAB PO (20:05)
[2024-07-17] MEDS: cloZAPine 25 MG TABLET 50 MG PO (20:05)
[2024-07-17] MEDS: FLUoxetine HCl 20 MG CAPSULE PO (20:05)
[2024-07-18 08:00] VITALS: BP 116/72; PULSE 99; RESP 18; TEMP 36.7; O2SAT 97
[2024-07-18] MEDS: Perphenazine 2 MG TABLET 6 MG PO (08:12)
[2024-07-18] MEDS: clonazePAM 1 MG TABLET PO (08:13)
[2024-07-18] MEDS: Cholecalciferol (Vitamin D3) 10 MCG TABLET PO (08:13)
--- NOTE | 2024-07-18 10:31 | P.PNPSI_ITS ---
Subjective Subjective Date of Service: 07/18/24 Reason For Visit: Unspecified schizophrenia Subjective Notes: 3 Day Healthcare Proxy: No Guardianship: No Medical Problems Affecting Mental Status: No Interim History: 54 yo WM reports he is fine- then repeatedly reaches out to provider as going through unit- to re check that plan is to inc by 25mg /night for meds- and that he is fine- Medication Compliance: Yes Side effects from medications: Yes (some tiredness today - but starting to sleep better) Attending Groups: No Review of Systems Acute medical concerns: No Medical Review of Systems: unchanged Mental Status Exam Mental Status Exam Patient Appearance: Fatigued Patient Orientation: Person, Place, Time and Situation Level of Consciousness: Awake and Alert Patient Behavior: Appropriate, Passive and Good Eye Contact Mood Description: Apprehensive Affect Description: Blunted Patient Cognition Impaired: No Ability to Follow Directions: Good Speech Pattern: Clear Thought Content: positive for Obsessional Thoughts Depressive Symptoms: Difficulty Sleeping Abnormal Motor Activity Signs and Symptoms: Restlessness Judgement: Fair Diagnostics Vital Signs (24Hr): Vital Signs - 24 hr 07/17/24 19:54 07/18/24 08:00 Temperature 97.8 F 98.1 F Pulse Rate 103 H 99 Respiratory Rate 15 18 Blood Pressure 101/64 116/72 Pulse Oximetry 99 97 Oxygen Delivery Method Room Air BMI result Body Mass Index 28.3 Labs 07/11/24 07:37 Medications Medications Current Medications Acetaminophen (Acetaminophen 325 Mg Tablet) 650 mg PO Q6H PRN PRN Reason: Headache/Pain Mild Scale (1-3) Al Hydroxide/Mg Hydroxide (Magnesium Hydrox/Alum Hydrox 30 Ml Oral.Susp) 30 ml PO Q6H PRN PRN Reason: Heartburn/Nausea Clonazepam (Clonazepam 1 Mg Tablet) 1 mg PO DAILY [facility] Last Admin: 07/18/24 08:13 Dose: 1 mg Clonazepam (Clonazepam 0.5 Mg Tablet) 0.5 mg PO BID PRN PRN Reason: Anxiety Last Admin: 07/11/24 11:24 Dose: 0.5 mg Clozapine (Clozapine 100 Mg Tablet) 400 mg PO BEDTIME CLARA Stop: 07/18/24 22:00 Last Admin: 07/17/24 20:04 Dose: 400 mg Clozapine (Clozapine 25 Mg Tablet) 75 mg PO BEDTIME ONE Stop: 07/18/24 21:01 Clozapine (Clozapine 100 Mg Tablet) 500 mg PO BEDTIME CLARA Fluoxetine HCl (Fluoxetine Hcl 20 Mg Capsule) 20 mg PO BEDTIME CLARA Last Admin: 07/17/24 20:05 Dose: 20 mg Magnesium Hydroxide (Milk Of Magnesia 30 Ml Oral.Susp) 30 ml PO DAILY PRN PRN Reason: Constipation Multivitamins/Vitamin C (Multivitamin Tablet) 1 tab PO BEDTIME CLARA Last Admin: 07/17/24 20:05 Dose: 1 tab Nicotine (Nicotine 21 Mg Patch.Td24) 21 mg TRANSDERMA DAILY PRN PRN Reason: smoking cessation Nicotine Polacrilex (Nicotine Polacrilex 2 Mg Gum) 4 mg BUCCAL Q2H PRN PRN Reason: Nicotine Cravings Patient Own Medication (Centrum Silver - Adults 50+) 1 each PO DAILY [facility] Last Admin: 07/18/24 08:13 Dose: 1 each Olanzapine (Olanzapine 2.5 Mg Tablet) 2.5 mg PO TID PRN PRN Reason: agitation Last Admin: 07/10/24 20:30 Dose: 2.5 mg Perphenazine (Perphenazine 8 Mg Tablet) 8 mg PO BEDTIME CLARA Last Admin: 07/17/24 20:05 Dose: 8 mg Perphenazine (Perphenazine 2 Mg Tablet) 6 mg PO DAILY [facility] Last Admin: 07/18/24 08:12 Dose: 6 mg Trazodone HCl (Trazodone Hcl 50 Mg Tablet) 50 mg PO BEDTIME MRX1 PRN PRN Reason: Insomnia Last Admin: 07/15/24 20:01 Dose: 50 mg Vitamin D (Cholecalciferol (Vitamin D3) 10 Mcg Tablet) 10 mcg PO DAILY [facility]ARA Last Admin: 07/18/24 08:13 Dose: 10 mcg Allergies Allergies Allergy/AdvReac Type Severity Reaction Status Date / Time No Known Allergies Allergy Verified 06/28/24 18:37 Assessment & Plan Assessment & Plan (1) Schizophrenia: Qualifiers: Schizophrenia type: unspecified Qualified Code(s): F20.9 - Schizophrenia, unspecified Status: Acute Code(s): F20.9 - Schizophrenia, unspecified Plan The patient is a 54-year-old male, single, with no children, with good social support with a past history of schizophrenia, on Clozaril, followed by [facility] as an outpatient, who was readmitted after discharge for relapse of psychotic symptoms. During the interview, the patient was adamant that he wants to have his Clozaril back adjusted up to 575 they used to be therapeutic for him. -stable since 2016 -At [place] this past June, was catatonic (not eating/drinking), resolved with ativan, then got aggressive...got pneumonia, RAJIV and was transferred to [facility] and discharged soon after. Went to [facility] but there, expressed Aliens tormenting him, controlling his brain, SI and HI so sent back Hospital course: 07/13 pt signed a 3 day notice, saying i'm being treated unfairly here by staff.... On inquiry he says you know what's going on... and would not give any examples. He says i'm snowballing here...i just want to go home, get my mind settled... i realize what's going on...being pushed around by staff... he feels mortgage underwriter is pushing him around too, but could not say how. im tired of being pushed around...just do your jobs. Says AH is bothersome and all day long, both good and bad... hearing AH to say get out of bed or it will be the end of the world... Talking about Aliens Pt says he wants Clozapine titrated faster and wants to go up by 50mg a day; mortgage underwriter discussed reasons for approaching a slower titration, however patient irritated by answers and says he will tolerate it fine by increasing by 50mg. Tile Applicator discussed pt retracting 3 day to stay longer for Clozapine titration, given that he was re-admitted after only a few days, indicating need for longer stay 07/14 continues to have AH that is quite bothersome; guarded, suspicious but cooperative. Retracted 3 day notice saying he realizes he needs to stay longer; wants Clozaril titrated -loose stool before admission; hx of on/off constipation/loose stool roomate enteropathic ecoli so hospitalist recommends that patient get stool culture as well 07/15 continue treatment plan; will further titrate Clozaril. No change in presentation. [facility] out reach workers medicated with SW and strongly advocate for patient to remain on psychiatric unit to continue with medication management so that he can stabilize 07/16 Patient guarded, suspicious, anxious; continues to report that people are lying against him. Initially patient upset that mortgage underwriter was only increasing clozapine dose by 25 mg per day instead of 50 mg per day, saying mortgage underwriter lied to him and is misleading him, playing games... mortgage underwriter again explained reasoning behind it and eventually patient seemed to accept this and agreed to 25 mg increase per day. He said he was last on his home dose of 475 mg about 4 weeks ago. Patient again asked mortgage underwriter to please do your job... -Spoke with patient's outpatient provider, Dr. Cho who strongly advocates for patient to remain inpatient until clozapine dose back to home dose of 575mg; otherwise concern is for quick returned to the hospital. Tile Applicator agrees 07/18- CTP inc by 25mg /night-pt hoping to go Saturday home for continued titration Plan 3 day q15 min Increase Clozaril up to 425 mg p.o. q.h.s. will titrate by 25 mg daily back to home dose of 575 mg Continue Clonazepam 1 mg daily; 0.5 b.i.d. p.r.n. Continue Perphenazine 6 mg daily Continue Perphenazine 8 mg q.h.s. Patient educated on: medication risk/benefits Informed Consent: understands Reason for continued inpatient stay Substantial Risk for: rapid decompensation Time Spent With Patient Time: Total time managing care of this patient today ____ minutes.
--- NOTE | 2024-07-18 13:44 | PC.NURSE ---
Recieved call from microbiology lab stating that there was not enough stool collected for GI panel and staff will need to recollect of MD still wants GI panel. Pt reports he had a formed BM yesterday and no further complaints of lose stool. nutrition specialist Dr Salamanca informed and response pending
[2024-07-18 20:00] VITALS: BP 127/72; PULSE 90; RESP 18; TEMP 36.9; O2SAT 100
[2024-07-18] MEDS: cloZAPine 25 MG TABLET 75 MG PO (20:09)
[2024-07-18] MEDS: cloZAPine 100 MG TABLET 400 MG PO (20:09)
[2024-07-18] MEDS: FLUoxetine HCl 20 MG CAPSULE PO (20:10)
[2024-07-18] MEDS: Multivitamin TABLET 1 TAB PO (20:10)
[2024-07-18] MEDS: Perphenazine 8 MG TABLET PO (20:10)
--- NOTE | 2024-07-19 00:40 | PC.NURSE ---
Patient had 475 mg of Clozapine ordered for HS on 07/19. Patient refused 25 mg of Clozapine, informing this nurse that he was supposed to get 450 mg, and didn't want to go too high. Patient stated he would talk to providers regarding this issue.
[2024-07-19 07:56] VITALS: BP 109/69; PULSE 84; RESP 18; TEMP 36.7; O2SAT 91
[2024-07-19] MEDS: Perphenazine 2 MG TABLET 6 MG PO (08:08)
[2024-07-19] MEDS: clonazePAM 1 MG TABLET PO (08:09)
[2024-07-19] MEDS: Cholecalciferol (Vitamin D3) 10 MCG TABLET PO (08:09)
[2024-07-19 09:26] LABS: Neutrophils Absolute Auto 4.8 x10*3/uL (2.0-8.3); WBCANC 8.3 X10*3/uL
--- NOTE | 2024-07-19 11:12 | P.PNPSI_ITS ---
Subjective Subjective Date of Service: 07/19/24 Reason For Visit: Unspecified schizophrenia Subjective Notes: 3 Day Healthcare Proxy: No Guardianship: No Medical Problems Affecting Mental Status: No Interim History: 54 yo WM refused 475mg last pm - says it was time for 450mg last pm , tonight will take 475mg = then 500mg next upto 575 on - wondered how this would go if he is dced tomorrow - pt says he can do titration further at home Medication Compliance: No (was meant to have 475mg last pm? ) Side effects from medications: No (sleeping better on med inc dosing) Attending Groups: No Review of Systems Acute medical concerns: No Medical Review of Systems: unchanged Mental Status Exam Mental Status Exam Patient Appearance: Well Grooomed and Appropriate Patient Orientation: Person, Place, Time and Situation Level of Consciousness: Awake and Alert Patient Behavior: Appropriate, Cooperative and Good Eye Contact Mood Description: Apprehensive Affect Description: Blunted Patient Cognition Impaired: No Ability to Follow Directions: Fair Speech Pattern: Clear Hallucinations: None Thought Process: Intact and Goal Oriented Thought Content: positive for Intact, positive for [place] and positive for Poverty of Content Judgement: Fair Diagnostics Vital Signs (24Hr): Vital Signs - 24 hr 07/18/24 20:00 07/19/24 07:56 Temperature 98.4 F 98.1 F Pulse Rate 90 84 Respiratory Rate 18 18 Blood Pressure 127/72 109/69 Pulse Oximetry 100 91 L Oxygen Delivery Method Room Air Room Air BMI result Body Mass Index 28.3 Labs 07/11/24 07:37 Labs: Laboratory Results - last 48 hr 07/19/24 09:02 Absolute Neuts (auto) 4.8 Hold Purple Top SEE NOTE Medications Medications Current Medications Acetaminophen (Acetaminophen 325 Mg Tablet) 650 mg PO Q6H PRN PRN Reason: Headache/Pain Mild Scale (1-3) Al Hydroxide/Mg Hydroxide (Magnesium Hydrox/Alum Hydrox 30 Ml Oral.Susp) 30 ml PO Q6H PRN PRN Reason: Heartburn/Nausea Clonazepam (Clonazepam 1 Mg Tablet) 1 mg PO DAILY CLARA Last Admin: 07/19/24 08:09 Dose: 1 mg Clonazepam (Clonazepam 0.5 Mg Tablet) 0.5 mg PO BID PRN PRN Reason: Anxiety Last Admin: 07/11/24 11:24 Dose: 0.5 mg Clozapine (Clozapine 100 Mg Tablet) 500 mg PO BEDTIME CLARA Fluoxetine HCl (Fluoxetine Hcl 20 Mg Capsule) 20 mg PO BEDTIME CLARA Last Admin: 07/18/24 20:10 Dose: 20 mg Magnesium Hydroxide (Milk Of Magnesia 30 Ml Oral.Susp) 30 ml PO DAILY PRN PRN Reason: Constipation Nicotine (Nicotine 21 Mg Patch.Td24) 21 mg TRANSDERMA DAILY PRN PRN Reason: smoking cessation Nicotine Polacrilex (Nicotine Polacrilex 2 Mg Gum) 4 mg BUCCAL Q2H PRN PRN Reason: Nicotine Cravings Patient Own Medication (Centrum Silver - Adults 50+) 1 each PO DAILY [facility] Last Admin: 07/19/24 09:00 Dose: Not Given Olanzapine (Olanzapine 2.5 Mg Tablet) 2.5 mg PO TID PRN PRN Reason: agitation Last Admin: 07/10/24 20:30 Dose: 2.5 mg Perphenazine (Perphenazine 8 Mg Tablet) 8 mg PO BEDTIME CLARA Last Admin: 07/18/24 20:10 Dose: 8 mg Perphenazine (Perphenazine 2 Mg Tablet) 6 mg PO DAILY [facility] Last Admin: 07/19/24 08:08 Dose: 6 mg Trazodone HCl (Trazodone Hcl 50 Mg Tablet) 50 mg PO BEDTIME MRX1 PRN PRN Reason: Insomnia Last Admin: 07/15/24 20:01 Dose: 50 mg Vitamin D (Cholecalciferol (Vitamin D3) 10 Mcg Tablet) 10 mcg PO DAILY [facility] Last Admin: 07/19/24 08:09 Dose: 10 mcg Allergies Allergies Allergy/AdvReac Type Severity Reaction Status Date / Time No Known Allergies Allergy Verified 06/28/24 18:37 Assessment & Plan Assessment & Plan (1) Schizophrenia: Qualifiers: Schizophrenia type: unspecified Qualified Code(s): F20.9 - Schizophrenia, unspecified Status: Acute Code(s): F20.9 - Schizophrenia, unspecified Plan The patient is a 54-year-old male, single, with no children, with good social support with a past history of schizophrenia, on Clozaril, followed by [facility] as an outpatient, who was readmitted after discharge for relapse of psychotic symptoms. During the interview, the patient was adamant that he wants to have his Clozaril back adjusted up to 575 they used to be therapeutic for him. -stable since 2017 -At [place] this past June, was catatonic (not eating/drinking), resolved with ativan, then got aggressive...got pneumonia, RAJIV and was transferred to [facility] and discharged soon after. Went to [facility] but there, expressed Aliens tormenting him, controlling his brain, SI and HI so sent back Hospital course: 07/13 pt signed a 3 day notice, saying i'm being treated unfairly here by staff.... On inquiry he says you know what's going on... and would not give any examples. He says i'm snowballing here...i just want to go home, get my mind settled... i realize what's going on...being pushed around by staff... he feels junior technical writer is pushing him around too, but could not say how. im tired of being pushed around...just do your jobs. Says AH is bothersome and all day long, both good and bad... hearing AH to say get out of bed or it will be the end of the world... Talking about Aliens Pt says he wants Clozapine titrated faster and wants to go up by 50mg a day; junior technical writer discussed reasons for approaching a slower titration, however patient irritated by answers and says he will tolerate it fine by increasing by 50mg. Condominium Property Manager discussed pt retracting 3 day to stay longer for Clozapine titration, given that he was re-admitted after only a few days, indicating need for longer stay 07/14 continues to have AH that is quite bothersome; guarded, suspicious but cooperative. Retracted 3 day notice saying he realizes he needs to stay longer; wants Clozaril titrated -loose stool before admission; hx of on/off constipation/loose stool roomate enteropathic ecoli so hospitalist recommends that patient get stool culture as well 07/15 continue treatment plan; will further titrate Clozaril. No change in presentation. [facility] out reach workers medicated with SW and strongly advocate for patient to remain on psychiatric unit to continue with medication management so that he can stabilize 07/16 Patient guarded, suspicious, anxious; continues to report that people are lying against him. Initially patient upset that junior technical writer was only increasing clozapine dose by 25 mg per day instead of 50 mg per day, saying junior technical writer lied to him and is misleading him, playing games... junior technical writer again explained reasoning behind it and eventually patient seemed to accept this and agreed to 25 mg increase per day. He said he was last on his home dose of 475 mg about 4 weeks ago. Patient again asked junior technical writer to please do your job... -Spoke with patient's outpatient provider, Dr. Cho who strongly advocates for patient to remain inpatient until clozapine dose back to home dose of 575mg; otherwise concern is for quick returned to the hospital. Condominium Property Manager agrees 07/18- CTP inc by 25mg /night-pt hoping to go Saturday home for continued titration 07/19 CTP will re write for 475mg tonight Plan 3 day q15 min Increase Clozaril up to 425 mg p.o. q.h.s. will titrate by 25 mg daily back to home dose of 575 mg Continue Clonazepam 1 mg daily; 0.5 b.i.d. p.r.n. Continue Perphenazine 6 mg daily Continue Perphenazine 8 mg q.h.s. Patient educated on: medication risk/benefits Informed Consent: understands Reason for continued inpatient stay Substantial Risk for: rapid decompensation Time Spent With Patient Time: Total time managing care of this patient today ____ minutes.
[2024-07-19 19:57] VITALS: BP 125/67; PULSE 94; RESP 14; TEMP 36.8; O2SAT 98
[2024-07-19] MEDS: cloZAPine 100 MG TABLET 400 MG PO (20:02)
[2024-07-19] MEDS: cloZAPine 25 MG TABLET 75 MG PO (20:03)
[2024-07-19] MEDS: Perphenazine 8 MG TABLET PO (20:03)
[2024-07-19] MEDS: FLUoxetine HCl 20 MG CAPSULE PO (20:03)
[2024-07-20 08:14] VITALS: BP 107/63; PULSE 92; RESP 18; TEMP 37; O2SAT 97
[2024-07-20] MEDS: Cholecalciferol (Vitamin D3) 10 MCG TABLET PO (08:21)
[2024-07-20] MEDS: clonazePAM 1 MG TABLET PO (08:21)
[2024-07-20] MEDS: Perphenazine 2 MG TABLET 6 MG PO (08:21)
--- NOTE | 2024-07-20 09:01 | HO.PSYCHPN ---
Subjective Subjective Date of Service: 07/20/24 Reason For Visit: Unspecified schizophrenia Interim History: met with patient; discussed with team; reviewed chart pt doing better; still paranoid but less so. Says mood is better and affect is brighter; less guarded and more amenable. Agrees to retract 3 day and remain for continued Clozapine titration. Says sleeping well and AH less bothersome and less frequently negative. Mental Status Exam Mental Status Exam Narrative: Pt is alert and oriented; behavior is a little guarded, but less so, more cooperative, friendly, calmer; patient is not in distress; dressed in casual attire with adequate hygiene; mood is described as better and affect congruent, brighter, more calm; eye contact appropriate; Speech is normal rate, volume and prosody and not pressured; no psychomotor agitation/retardation present; thought process is organized and goal directed; Thought content is on tx; some paranoid ideations but less expressed; no SI/HI. AH but less negative. Patients insight and judgment impaired but improving Diagnostics Vital Signs (24Hr): Vital Signs - 24 hr 07/19/24 19:57 07/20/24 08:14 Temperature 98.2 F 98.6 F Pulse Rate 94 92 Respiratory Rate 14 18 Blood Pressure 125/67 107/63 Pulse Oximetry 98 97 Oxygen Delivery Method Room Air BMI result Body Mass Index 28.3 Labs 07/11/24 07:37 Labs: Laboratory Results - last 48 hr 07/19/24 09:02 Absolute Neuts (auto) 4.8 Hold Purple Top SEE NOTE Medications Medications Current Medications Acetaminophen (Acetaminophen 325 Mg Tablet) 650 mg PO Q6H PRN PRN Reason: Headache/Pain Mild Scale (1-3) Al Hydroxide/Mg Hydroxide (Magnesium Hydrox/Alum Hydrox 30 Ml Oral.Susp) 30 ml PO Q6H PRN PRN Reason: Heartburn/Nausea Clonazepam (Clonazepam 1 Mg Tablet) 1 mg PO DAILY CLARA Last Admin: 07/20/24 08:21 Dose: 1 mg Clonazepam (Clonazepam 0.5 Mg Tablet) 0.5 mg PO BID PRN PRN Reason: Anxiety Last Admin: 07/11/24 11:24 Dose: 0.5 mg Clozapine (Clozapine 100 Mg Tablet) 400 mg PO BEDTIME CLARA Last Admin: 07/19/24 20:02 Dose: 400 mg Fluoxetine HCl (Fluoxetine Hcl 20 Mg Capsule) 20 mg PO BEDTIME CLARA Last Admin: 07/19/24 20:03 Dose: 20 mg Magnesium Hydroxide (Milk Of Magnesia 30 Ml Oral.Susp) 30 ml PO DAILY PRN PRN Reason: Constipation Nicotine (Nicotine 21 Mg Patch.Td24) 21 mg TRANSDERMA DAILY PRN PRN Reason: smoking cessation Nicotine Polacrilex (Nicotine Polacrilex 2 Mg Gum) 4 mg BUCCAL Q2H PRN PRN Reason: Nicotine Cravings Patient Own Medication (Centrum Silver - Adults 50+) 1 each PO DAILY [facility] Last Admin: 07/20/24 08:20 Dose: 1 each Olanzapine (Olanzapine 2.5 Mg Tablet) 2.5 mg PO TID PRN PRN Reason: agitation Last Admin: 07/10/24 20:30 Dose: 2.5 mg Perphenazine (Perphenazine 8 Mg Tablet) 8 mg PO BEDTIME CLARA Last Admin: 07/19/24 20:03 Dose: 8 mg Perphenazine (Perphenazine 2 Mg Tablet) 6 mg PO DAILY [facility] Last Admin: 07/20/24 08:21 Dose: 6 mg Trazodone HCl (Trazodone Hcl 50 Mg Tablet) 50 mg PO BEDTIME MRX1 PRN PRN Reason: Insomnia Last Admin: 07/15/24 20:01 Dose: 50 mg Vitamin D (Cholecalciferol (Vitamin D3) 10 Mcg Tablet) 10 mcg PO DAILY [facility] Last Admin: 07/20/24 08:21 Dose: 10 mcg Allergies Allergies Allergy/AdvReac Type Severity Reaction Status Date / Time No Known Allergies Allergy Verified 06/28/24 18:37 Assessment & Plan Assessment & Plan (1) Schizophrenia: Qualifiers: Schizophrenia type: unspecified Qualified Code(s): F20.9 - Schizophrenia, unspecified Status: Acute Code(s): F20.9 - Schizophrenia, unspecified Plan The patient is a 54-year-old male, single, with no children, with good social support with a past history of schizophrenia, on Clozaril, followed by Guillermo as an outpatient, who was readmitted after discharge for relapse of psychotic symptoms. During the interview, the patient was adamant that he wants to have his Clozaril back adjusted up to 575 they used to be therapeutic for him. -stable since 2016 -At [place] this past June, was catatonic (not eating/drinking), resolved with ativan, then got aggressive...got pneumonia, RAJIV and was transferred to [facility] and discharged soon after. Went [facility] but there, expressed Aliens tormenting him, controlling his brain, SI and HI so sent back Hospital course: 07/13 pt signed a 3 day notice, saying i'm being treated unfairly here by staff.... On inquiry he says you know what's going on... and would not give any examples. He says i'm snowballing here...i just want to go home, get my mind settled... i realize what's going on...being pushed around by staff... he feels typewriters functional tester is pushing him around too, but could not say how. im tired of being pushed around...just do your jobs. Says AH is bothersome and all day long, both good and bad... hearing AH to say get out of bed or it will be the end of the world... Talking about Aliens Pt says he wants Clozapine titrated faster and wants to go up by 50mg a day; typewriters functional tester discussed reasons for approaching a slower titration, however patient irritated by answers and says he will tolerate it fine by increasing by 50mg. Cable Mock Up Assembler discussed pt retracting 3 day to stay longer for Clozapine titration, given that he was re-admitted after only a few days, indicating need for longer stay 07/14 continues to have AH that is quite bothersome; guarded, suspicious but cooperative. Retracted 3 day notice saying he realizes he needs to stay longer; wants Clozaril titrated -loose stool before admission; hx of on/off constipation/loose stool roomate enteropathic ecoli so hospitalist recommends that patient get stool culture as well 07/15 continue treatment plan; will further titrate Clozaril. No change in presentation. [facility] out reach workers medicated with SW and strongly advocate for patient to remain on psychiatric unit to continue with medication management so that he can stabilize 07/16 Patient guarded, suspicious, anxious; continues to report that people are lying against him. Initially patient upset that typewriters functional tester was only increasing clozapine dose by 25 mg per day instead of 50 mg per day, saying typewriters functional tester lied to him and is misleading him, playing games... typewriters functional tester again explained reasoning behind it and eventually patient seemed to accept this and agreed to 25 mg increase per day. He said he was last on his home dose of 475 mg about 4 weeks ago. Patient again asked typewriters functional tester to please do your job... -Spoke with patient's outpatient provider, Dr. Cho who strongly advocates for patient to remain inpatient until clozapine dose back to home dose of 575mg; otherwise concern is for quick returned to the hospital. Cable Mock Up Assembler agrees 07/18- CTP inc by 25mg /night-pt hoping to go Saturday home for continued titration 07/19 CTP will re write for 475mg tonight 07/20 pt doing better; still paranoid but less so. Says mood is better and affect is brighter; less guarded and more amenable. Agrees to retract 3 day and remain for continued Clozapine titration. Says sleeping well and AH less bothersome and less frequently negative. -increase Clozapine Plan CV q15 min Indcrease Clozaril up to 500 mg p.o. q.h.s. will titrate by 25 mg daily back to home dose of 575 mg Continue Clonazepam 1 mg daily; 0.5 b.i.d. p.r.n. Continue Perphenazine 6 mg daily Continue Perphenazine 8 mg q.h.s. Patient educated on: diagnosis and medication risk/benefits Informed Consent: understands Reason for continued inpatient stay Substantial Risk for: rapid decompensation Time Spent With Patient Time: Total time managing care of this patient today ____ minutes.
[2024-07-20 20:00] VITALS: BP 99/69; PULSE 107; RESP 18; TEMP 36.7; O2SAT 96
[2024-07-20] MEDS: clonazePAM 0.5 MG TABLET PO (20:18)
[2024-07-20] MEDS: cloZAPine 100 MG TABLET 500 MG PO (20:18)
[2024-07-20] MEDS: Perphenazine 8 MG TABLET PO (20:19)
[2024-07-20] MEDS: FLUoxetine HCl 20 MG CAPSULE PO (20:19)
[2024-07-21 08:00] VITALS: BP 116/68; PULSE 92; RESP 18; TEMP 37; O2SAT 98
[2024-07-21] MEDS: clonazePAM 1 MG TABLET PO (08:46)
[2024-07-21] MEDS: Perphenazine 2 MG TABLET 6 MG PO (08:46)
[2024-07-21] MEDS: Cholecalciferol (Vitamin D3) 10 MCG TABLET PO (08:46)
--- NOTE | 2024-07-21 09:42 | P.PNPSI_ITS ---
Subjective Subjective Date of Service: 07/21/24 Reason For Visit: Unspecified schizophrenia Interim History: met with patient; discussed with team Patient reports that he is feeling better. He said he slept better last night and that the voices are no longer all bad but seem to be more on the good side. Patient grateful for help; goes over medications and asking for clozapine to be again titrated by another 25 mg; discussed dispo and patient agrees with discharge on Saturday. Mental Status Exam Mental Status Exam Narrative: Pt is alert and oriented; behavior is a much more calm, friendly, cooperative and no longer guarded; patient is not in distress; dressed in casual attire with adequate hygiene; mood is described as better and affect congruent, brighter, more calm; eye contact appropriate; Speech is normal rate, volume and prosody and not pressured; no psychomotor agitation/retardation present; thought process is organized and goal directed; Thought content is on tx; some paranoid ideations but less expressed; no SI/HI. AH but less negative. Patients insight and judgment impaired but improving Diagnostics Vital Signs (24Hr): Vital Signs - 24 hr 07/20/24 20:00 07/21/24 08:00 Temperature 98.1 F 98.6 F Pulse Rate 107 H 92 Respiratory Rate 18 18 Blood Pressure 99/69 116/68 Pulse Oximetry 96 98 Oxygen Delivery Method Room Air Room Air BMI result Body Mass Index 28.3 Labs 07/11/24 07:37 Medications Medications Current Medications Acetaminophen (Acetaminophen 325 Mg Tablet) 650 mg PO Q6H PRN PRN Reason: Headache/Pain Mild Scale (1-3) Al Hydroxide/Mg Hydroxide (Magnesium Hydrox/Alum Hydrox 30 Ml Oral.Susp) 30 ml PO Q6H PRN PRN Reason: Heartburn/Nausea Clonazepam (Clonazepam 1 Mg Tablet) 1 mg PO DAILY [facility] Last Admin: 07/21/24 08:46 Dose: 1 mg Clonazepam (Clonazepam 0.5 Mg Tablet) 0.5 mg PO BID PRN PRN Reason: Anxiety Last Admin: 07/20/24 20:18 Dose: 0.5 mg Clozapine (Clozapine 100 Mg Tablet) 500 mg PO BEDTIME [facility]ARA Last Admin: 07/20/24 20:18 Dose: 500 mg Clozapine (Clozapine 25 Mg Tablet) 25 mg PO BEDTIME CLARA Fluoxetine HCl (Fluoxetine Hcl 20 Mg Capsule) 20 mg PO BEDTIME [facility]ARA Last Admin: 07/20/24 20:19 Dose: 20 mg Magnesium Hydroxide (Milk Of Magnesia 30 Ml Oral.Susp) 30 ml PO DAILY PRN PRN Reason: Constipation Nicotine (Nicotine 21 Mg Patch.Td24) 21 mg TRANSDERMA DAILY PRN PRN Reason: smoking cessation Nicotine Polacrilex (Nicotine Polacrilex 2 Mg Gum) 4 mg BUCCAL Q2H PRN PRN Reason: Nicotine Cravings Patient Own Medication (Centrum Silver - Adults 50+) 1 each PO DAILY [facility] Last Admin: 07/21/24 08:46 Dose: 1 each Olanzapine (Olanzapine 2.5 Mg Tablet) 2.5 mg PO TID PRN PRN Reason: agitation Last Admin: 07/10/24 20:30 Dose: 2.5 mg Perphenazine (Perphenazine 8 Mg Tablet) 8 mg PO BEDTIME CLARA Last Admin: 07/20/24 20:19 Dose: 8 mg Perphenazine (Perphenazine 2 Mg Tablet) 6 mg PO DAILY [facility] Last Admin: 07/21/24 08:46 Dose: 6 mg Trazodone HCl (Trazodone Hcl 50 Mg Tablet) 50 mg PO BEDTIME MRX1 PRN PRN Reason: Insomnia Last Admin: 07/15/24 20:01 Dose: 50 mg Vitamin D (Cholecalciferol (Vitamin D3) 10 Mcg Tablet) 10 mcg PO DAILY [facility] Last Admin: 07/21/24 08:46 Dose: 10 mcg Allergies Allergies Allergy/AdvReac Type Severity Reaction Status Date / Time No Known Allergies Allergy Verified 06/28/24 18:37 Assessment & Plan Assessment & Plan (1) Schizophrenia: Qualifiers: Schizophrenia type: unspecified Qualified Code(s): F20.9 - Schizophrenia, unspecified Status: Acute Code(s): F20.9 - Schizophrenia, unspecified Plan The patient is a 54-year-old male, single, with no children, with good social support with a past history of schizophrenia, on Clozaril, followed by Guillermo as an outpatient, who was readmitted after discharge for relapse of psychotic symptoms. During the interview, the patient was adamant that he wants to have his Clozaril back adjusted up to 575 they used to be therapeutic for him. -stable since 2016 -At [place] this past June, was catatonic (not eating/drinking), resolved with ativan, then got aggressive...got pneumonia, RAJIV and was transferred to [facility] and discharged soon after. Went to [facility] but there, expressed Aliens tormenting him, controlling his brain, SI and HI so sent back Hospital course: 07/13 pt signed a 3 day notice, saying i'm being treated unfairly here by staff.... On inquiry he says you know what's going on... and would not give any examples. He says i'm snowballing here...i just want to go home, get my mind settled... i realize what's going on...being pushed around by staff... he feels physician underwriter is pushing him around too, but could not say how. im tired of being pushed around...just do your jobs. Says AH is bothersome and all day long, both good and bad... hearing AH to say get out of bed or it will be the end of the world... Talking about Aliens Pt says he wants Clozapine titrated faster and wants to go up by 50mg a day; physician underwriter discussed reasons for approaching a slower titration, however patient irritated by answers and says he will tolerate it fine by increasing by 50mg. Welder Oxyhydrogen discussed pt retracting 3 day to stay longer for Clozapine titration, given that he was re-admitted after only a few days, indicating need for longer stay 07/14 continues to have AH that is quite bothersome; guarded, suspicious but cooperative. Retracted 3 day notice saying he realizes he needs to stay longer; wants Clozaril titrated -loose stool before admission; hx of on/off constipation/loose stool roomate enteropathic ecoli so hospitalist recommends that patient get stool culture as well 07/15 continue treatment plan; will further titrate Clozaril. No change in presentation. [facility] out reach workers medicated with SW and strongly advocate for patient to remain on psychiatric unit to continue with medication management so that he can stabilize 07/16 Patient guarded, suspicious, anxious; continues to report that people are lying against him. Initially patient upset that physician underwriter was only increasing clozapine dose by 25 mg per day instead of 50 mg per day, saying physician underwriter lied to him and is misleading him, playing games... physician underwriter again explained reasoning behind it and eventually patient seemed to accept this and agreed to 25 mg increase per day. He said he was last on his home dose of 475 mg about 4 weeks ago. Patient again asked physician underwriter to please do your job... -Spoke with patient's outpatient provider, Dr. Cho who strongly advocates for patient to remain inpatient until clozapine dose back to home dose of 575mg; otherwise concern is for quick returned to the hospital. Welder Oxyhydrogen agrees 07/18- CTP inc by 25mg /night-pt hoping to go Saturday home for continued titration 07/19 CTP will re write for 475mg tonight 07/20 pt doing better; still paranoid but less so. Says mood is better and affect is brighter; less guarded and more amenable. Agrees to retract 3 day and remain for continued Clozapine titration. Says sleeping well and AH less bothersome and less frequently negative. -increase Clozapine 07/21 patient doing better, friendly, more calm, no longer guarded or suspicious with physician underwriter; thanks physician underwriter for help and says he is feeling better that voices are less bothersome and less negative. Agrees to continue Clozaril titration and to discharge Saturday Plan CV q15 min Titrate Clozaril by 25 mg daily until back to home dose of 575 mg Continue Clonazepam 1 mg daily; 0.5 b.i.d. p.r.n. Continue Perphenazine 6 mg daily Continue Perphenazine 8 mg q.h.s. Patient educated on: diagnosis and medication risk/benefits Informed Consent: understands Reason for continued inpatient stay Substantial Risk for: rapid decompensation Time Spent With Patient Time: Total time managing care of this patient today ____ minutes.
[2024-07-21 20:00] VITALS: BP 118/62; PULSE 97; RESP 16; TEMP 36.8; O2SAT 99
[2024-07-21] MEDS: cloZAPine 25 MG TABLET PO (20:03)
[2024-07-21] MEDS: Perphenazine 8 MG TABLET PO (20:03)
[2024-07-21] MEDS: FLUoxetine HCl 20 MG CAPSULE PO (20:03)
[2024-07-21] MEDS: cloZAPine 100 MG TABLET 500 MG PO (20:03)
[2024-07-22 08:00] VITALS: BP 118/66; PULSE 96; RESP 16; TEMP 36.9; O2SAT 97
[2024-07-22] MEDS: Cholecalciferol (Vitamin D3) 10 MCG TABLET PO (08:44)
[2024-07-22] MEDS: Perphenazine 2 MG TABLET 6 MG PO (08:44)
[2024-07-22] MEDS: clonazePAM 1 MG TABLET PO (08:45)
--- NOTE | 2024-07-22 18:49 | P.PNPSI_ITS ---
Subjective Subjective Date of Service: 07/22/24 Reason For Visit: Unspecified schizophrenia Interim History: Met with patient; discussed with team Patient continues to report that he is feeling better and that he slept better last night; again says voices are more good than bad and is grateful for continued titration. Again goes over medication regimen, seeking reassurance that Clozaril will be again increase by 25 mg but readily accepts that this will be the case Mental Status Exam Mental Status Exam Narrative: Pt is alert and oriented; behavior is a much more calm, friendly, cooperative and no longer guarded; patient is not in distress; dressed in casual attire with adequate hygiene; mood is described as good and affect congruent, brighter, more calm; eye contact appropriate; Speech is normal rate, volume and prosody and not pressured; no psychomotor agitation/retardation present; thought process is organized and goal directed; Thought content is on tx; some paranoid ideations but less expressed; no SI/HI. AH but less negative. Patients insight and judgment much improved, likely close to baseline and adequate. Diagnostics Vital Signs (24Hr): Vital Signs - 24 hr 07/21/24 20:00 07/22/24 08:00 Temperature 98.2 F 98.4 F Pulse Rate 97 96 Respiratory Rate 16 16 Blood Pressure 118/62 118/66 Pulse Oximetry 99 97 Oxygen Delivery Method Room Air Room Air BMI result Body Mass Index 28.3 Labs 07/11/24 07:37 Labs: Laboratory Results - last 48 hr 07/17/24 Unknown Stl C. cayetanensis PCR Cancelled Stool Rotavirus A PCR Cancelled Stl Adenov F 40/41 PCR Cancelled Stool Astrovirus (PCR) Cancelled Stool Campylobacter PCR Cancelled Stool Cryptosporidium PCR Cancelled Stl Sh Tox Pr E STEC PCR Cancelled Stool E coli O157 PCR Cancelled Stl Enterotoxigenic E PCR Cancelled Stool EPEC (PCR) Cancelled Stool EAEC (PCR) Cancelled Stl E. histolytica PCR Cancelled Stool Giardia Lamblia PCR Cancelled Stl P. shigelloides PCR Cancelled Stool Salmonella PCR Cancelled Stool Sapovirus (PCR) Cancelled Stl Shigella/EIEC PCR Cancelled St Y.enterocolitica PCR Cancelled Stool Vibrio (PCR) Cancelled Stl Vibrio cholerae PCR Cancelled Stl Norovirus GI/GII PCR Cancelled Medications Medications Current Medications Acetaminophen (Acetaminophen 325 Mg Tablet) 650 mg PO Q6H PRN PRN Reason: Headache/Pain Mild Scale (1-3) Al Hydroxide/Mg Hydroxide (Magnesium Hydrox/Alum Hydrox 30 Ml Oral.Susp) 30 ml PO Q6H PRN PRN Reason: Heartburn/Nausea Clonazepam (Clonazepam 1 Mg Tablet) 1 mg PO DAILY [facility] Last Admin: 07/22/24 08:45 Dose: 1 mg Clonazepam (Clonazepam 0.5 Mg Tablet) 0.5 mg PO BID PRN PRN Reason: Anxiety Last Admin: 07/20/24 20:18 Dose: 0.5 mg Clozapine (Clozapine 100 Mg Tablet) 500 mg PO BEDTIME CLARA Last Admin: 07/21/24 20:03 Dose: 500 mg Clozapine (Clozapine 25 Mg Tablet) 50 mg PO BEDTIME CLARA Fluoxetine HCl (Fluoxetine Hcl 20 Mg Capsule) 20 mg PO BEDTIME CLARA Last Admin: 07/21/24 20:03 Dose: 20 mg Magnesium Hydroxide (Milk Of Magnesia 30 Ml Oral.Susp) 30 ml PO DAILY PRN PRN Reason: Constipation Nicotine (Nicotine 21 Mg Patch.Td24) 21 mg TRANSDERMA DAILY PRN PRN Reason: smoking cessation Nicotine Polacrilex (Nicotine Polacrilex 2 Mg Gum) 4 mg BUCCAL Q2H PRN PRN Reason: Nicotine Cravings Patient Own Medication (Centrum Silver - Adults 50+) 1 each PO DAILY [facility] Last Admin: 07/22/24 08:45 Dose: 1 each Olanzapine (Olanzapine 2.5 Mg Tablet) 2.5 mg PO TID PRN PRN Reason: agitation Last Admin: 07/10/24 20:30 Dose: 2.5 mg Perphenazine (Perphenazine 8 Mg Tablet) 8 mg PO BEDTIME CLARA Last Admin: 07/21/24 20:03 Dose: 8 mg Perphenazine (Perphenazine 2 Mg Tablet) 6 mg PO DAILY [facility] Last Admin: 07/22/24 08:44 Dose: 6 mg Trazodone HCl (Trazodone Hcl 50 Mg Tablet) 50 mg PO BEDTIME MRX1 PRN PRN Reason: Insomnia Last Admin: 07/15/24 20:01 Dose: 50 mg Vitamin D (Cholecalciferol (Vitamin D3) 10 Mcg Tablet) 10 mcg PO DAILY [facility] Last Admin: 07/22/24 08:44 Dose: 10 mcg Allergies Allergies Allergy/AdvReac Type Severity Reaction Status Date / Time No Known Allergies Allergy Verified 06/28/24 18:37 Assessment & Plan Assessment & Plan (1) Schizophrenia: Qualifiers: Schizophrenia type: unspecified Qualified Code(s): F20.9 - Schizophrenia, unspecified Status: Acute Code(s): F20.9 - Schizophrenia, unspecified Plan The patient is a 54-year-old male, single, with no children, with good social support with a past history of schizophrenia, on Clozaril, followed by [facility] as an outpatient, who was readmitted after discharge for relapse of psychotic symptoms. During the interview, the patient was adamant that he wants to have his Clozaril back adjusted up to 575 they used to be therapeutic for him. -stable since 2016 -At [place] this past June, was catatonic (not eating/drinking), resolved with ativan, then got aggressive...got pneumonia, RAJIV and was transferred to and discharged soon after. Went [facility] but [facility], expressed Aliens tormenting him, controlling his brain, SI and HI so sent back Hospital course: 07/13 pt signed a 3 day notice, saying i'm being treated unfairly here by staff.... On inquiry he says you know what's going on... and would not give any examples. He says i'm snowballing here...i just want to go home, get my mind settled... i realize what's going on...being pushed around by staff... he feels junior underwriter is pushing him around too, but could not say how. im tired of being pushed around...just do your jobs. Says AH is bothersome and all day long, both good and bad... hearing AH to say get out of bed or it will be the end of the world... Talking about Aliens Pt says he wants Clozapine titrated faster and wants to go up by 50mg a day; junior underwriter discussed reasons for approaching a slower titration, however patient irritated by answers and says he will tolerate it fine by increasing by 50mg. Project Controls Scheduler discussed pt retracting 3 day to stay longer for Clozapine titration, given that he was re-admitted after only a few days, indicating need for longer stay 07/14 continues to have AH that is quite bothersome; guarded, suspicious but cooperative. Retracted 3 day notice saying he realizes he needs to stay longer; wants Clozaril titrated -loose stool before admission; hx of on/off constipation/loose stool roomate enteropathic ecoli so hospitalist recommends that patient get stool culture as well 07/15 continue treatment plan; will further titrate Clozaril. No change in presentation. [facility] out reach workers medicated with SW and strongly advocate for patient to remain on psychiatric unit to continue with medication management so that he can stabilize 07/16 Patient guarded, suspicious, anxious; continues to report that people are lying against him. Initially patient upset that junior underwriter was only increasing clozapine dose by 25 mg per day instead of 50 mg per day, saying junior underwriter lied to him and is misleading him, playing games... junior underwriter again explained reasoning behind it and eventually patient seemed to accept this and agreed to 25 mg increase per day. He said he was last on his home dose of 475 mg about 4 weeks ago. Patient again asked junior underwriter to please do your job... -Spoke with patient's outpatient provider, Dr. Cho who strongly advocates for patient to remain inpatient until clozapine dose back to home dose of 575mg; otherwise concern is for quick returned to the hospital. Project Controls Scheduler agrees 07/18- CTP inc by 25mg /night-pt hoping to go Saturday home for continued titration 07/19 CTP will re write for 475mg tonight 07/20 pt doing better; still paranoid but less so. Says mood is better and affect is brighter; less guarded and more amenable. Agrees to retract 3 day and remain for continued Clozapine titration. Says sleeping well and AH less bothersome and less frequently negative. -increase Clozapine 07/20 pt doing better; still paranoid but less so. Says mood is better and affect is brighter; less guarded and more amenable. Agrees to retract 3 day and remain for continued Clozapine titration. Says sleeping well and AH less bothersome and less frequently negative. -increase Clozapine 07/21 patient doing better, friendly, more calm, no longer guarded or suspicious with junior underwriter; thanks junior underwriter for help and says he is feeling better that voices are less bothersome and less negative. Agrees to continue Clozaril titration and to discharge Sunday 07/22 remains stable, much improved, more relaxed no longer guarded or suspicious. Continue with treatment plan and plan to discharge on Saturday Plan CV q15 min Titrate Clozaril by 25 mg daily until back to home dose of 575 mg Continue Clonazepam 1 mg daily; 0.5 b.i.d. p.r.n. Continue Perphenazine 6 mg daily Continue Perphenazine 8 mg q.h.s. Patient educated on: diagnosis and medication risk/benefits Informed Consent: understands Reason for continued inpatient stay Substantial Risk for: stable for discharge Time Spent With Patient Time: Total time managing care of this patient today ____ minutes.
[2024-07-22 20:00] VITALS: BP 101/59; PULSE 102; RESP 16; TEMP 36.3; O2SAT 99
[2024-07-22] MEDS: Perphenazine 8 MG TABLET PO (20:03)
[2024-07-22] MEDS: FLUoxetine HCl 20 MG CAPSULE PO (20:03)
[2024-07-22] MEDS: cloZAPine 100 MG TABLET 500 MG PO (20:03)
[2024-07-22] MEDS: cloZAPine 25 MG TABLET 50 MG PO (20:03)
[2024-07-23 07:00] VITALS: BMI 28.3
[2024-07-23 08:00] VITALS: BP 113/65; PULSE 99; RESP 16; TEMP 36.8; O2SAT 97
[2024-07-23] MEDS: Cholecalciferol (Vitamin D3) 10 MCG TABLET PO (09:10)
[2024-07-23] MEDS: clonazePAM 1 MG TABLET PO (09:10)
[2024-07-23] MEDS: Perphenazine 2 MG TABLET 6 MG PO (09:10)
[2024-07-23] MEDS: Acetaminophen 325 MG TABLET 650 MG PO (10:31)
--- NOTE | 2024-07-23 11:28 | HO.PSYCHPN ---
Subjective Subjective Date of Service: 07/23/24 Reason For Visit: Unspecified schizophrenia Interim History: Met with patient; discussed with team Patient again says he slept better. Asks for medications to be sent to his pharmacy. Discussed outpatient appointment and patient asks for refill so he will not run out of medications. Patient remains in good behavioral and impulse control Mental Status Exam Mental Status Exam Narrative: Pt is alert and oriented; behavior is a much more calm, friendly, cooperative and no longer guarded; patient is not in distress; dressed in casual attire with adequate hygiene; mood is described as good and affect congruent, brighter, more calm; eye contact appropriate; Speech is normal rate, volume and prosody and not pressured; no psychomotor agitation/retardation present; thought process is organized and goal directed; Thought content is on tx; some paranoid ideations but less expressed; no SI/HI. AH but less negative. Patients insight and judgment much improved, likely at baseline and adequate. Diagnostics Vital Signs (24Hr): Vital Signs - 24 hr 07/22/24 20:00 07/23/24 08:00 Temperature 97.3 F 98.3 F Pulse Rate 102 H 99 Respiratory Rate 16 16 Blood Pressure 101/59 L 113/65 Pulse Oximetry 99 97 Oxygen Delivery Method Room Air Room Air BMI result Body Mass Index 28.3 Labs 07/11/24 07:37 Labs: Laboratory Results - last 48 hr 07/17/24 Unknown Stl C. cayetanensis PCR Cancelled Stool Rotavirus A PCR Cancelled Stl Adenov F 40/41 PCR Cancelled Stool Astrovirus (PCR) Cancelled Stool Campylobacter PCR Cancelled Stool Cryptosporidium PCR Cancelled Stl Sh Tox Pr E STEC PCR Cancelled Stool E coli O157 PCR Cancelled Stl Enterotoxigenic E PCR Cancelled Stool EPEC (PCR) Cancelled Stool EAEC (PCR) Cancelled Stl E. histolytica PCR Cancelled Stool Giardia Lamblia PCR Cancelled Stl P. shigelloides PCR Cancelled Stool Salmonella PCR Cancelled Stool Sapovirus (PCR) Cancelled Stl Shigella/EIEC PCR Cancelled St Y.enterocolitica PCR Cancelled Stool Vibrio (PCR) Cancelled Stl Vibrio cholerae PCR Cancelled Stl Norovirus GI/GII PCR Cancelled Medications Medications Current Medications Acetaminophen (Acetaminophen 325 Mg Tablet) 650 mg PO Q6H PRN PRN Reason: Headache/Pain Mild Scale (1-3) Last Admin: 07/23/24 10:31 Dose: 650 mg Al Hydroxide/Mg Hydroxide (Magnesium Hydrox/Alum Hydrox 30 Ml Oral.Susp) 30 ml PO Q6H PRN PRN Reason: Heartburn/Nausea Clonazepam (Clonazepam 1 Mg Tablet) 1 mg PO DAILY [facility] Last Admin: 07/23/24 09:10 Dose: 1 mg Clonazepam (Clonazepam 0.5 Mg Tablet) 0.5 mg PO BID PRN PRN Reason: Anxiety Last Admin: 07/20/24 20:18 Dose: 0.5 mg Clozapine (Clozapine 100 Mg Tablet) 500 mg PO BEDTIME CLARA Last Admin: 07/22/24 20:03 Dose: 500 mg Clozapine (Clozapine 25 Mg Tablet) 75 mg PO BEDTIME CLARA Fluoxetine HCl (Fluoxetine Hcl 20 Mg Capsule) 20 mg PO BEDTIME CLARA Last Admin: 07/22/24 20:03 Dose: 20 mg Magnesium Hydroxide (Milk Of Magnesia 30 Ml Oral.Susp) 30 ml PO DAILY PRN PRN Reason: Constipation Nicotine (Nicotine 21 Mg Patch.Td24) 21 mg TRANSDERMA DAILY PRN PRN Reason: smoking cessation Nicotine Polacrilex (Nicotine Polacrilex 2 Mg Gum) 4 mg BUCCAL Q2H PRN PRN Reason: Nicotine Cravings Patient Own Medication (Centrum Silver - Adults 50+) 1 each PO DAILY [facility] Last Admin: 07/23/24 09:10 Dose: 1 each Olanzapine (Olanzapine 2.5 Mg Tablet) 2.5 mg PO TID PRN PRN Reason: agitation Last Admin: 07/10/24 20:30 Dose: 2.5 mg Perphenazine (Perphenazine 8 Mg Tablet) 8 mg PO BEDTIME CLARA Last Admin: 07/22/24 20:03 Dose: 8 mg Perphenazine (Perphenazine 2 Mg Tablet) 6 mg PO DAILY [facility] Last Admin: 07/23/24 09:10 Dose: 6 mg Trazodone HCl (Trazodone Hcl 50 Mg Tablet) 50 mg PO BEDTIME MRX1 PRN PRN Reason: Insomnia Last Admin: 07/15/24 20:01 Dose: 50 mg Vitamin D (Cholecalciferol (Vitamin D3) 10 Mcg Tablet) 10 mcg PO DAILY [facility] Last Admin: 07/23/24 09:10 Dose: 10 mcg Allergies Allergies Allergy/AdvReac Type Severity Reaction Status Date / Time No Known Allergies Allergy Verified 06/28/24 18:37 Assessment & Plan Assessment & Plan (1) Schizophrenia: Qualifiers: Schizophrenia type: unspecified Qualified Code(s): F20.9 - Schizophrenia, unspecified Status: Acute Code(s): F20.9 - Schizophrenia, unspecified Plan The patient is a 54-year-old male, single, with no children, with good social support with a past history of schizophrenia, on Clozaril, followed by [facility] as an outpatient, who was readmitted after discharge for relapse of psychotic symptoms. During the interview, the patient was adamant that he wants to have his Clozaril back adjusted up to 575 they used to be therapeutic for him. -stable since 2016 -At [place] this past June, was catatonic (not eating/drinking), resolved with ativan, then got aggressive...got pneumonia, RAJIV and was transferred to and discharged soon after. Went [facility] but there, expressed Aliens tormenting him, controlling his brain, SI and HI so sent back Hospital course: 07/13 pt signed a 3 day notice, saying i'm being treated unfairly here by staff.... On inquiry he says you know what's going on... and would not give any examples. He says i'm snowballing here...i just want to go home, get my mind settled... i realize what's going on...being pushed around by staff... he feels remote mortgage underwriter is pushing him around too, but could not say how. im tired of being pushed around...just do your jobs. Says AH is bothersome and all day long, both good and bad... hearing AH to say get out of bed or it will be the end of the world... Talking about Aliens Pt says he wants Clozapine titrated faster and wants to go up by 50mg a day; remote mortgage underwriter discussed reasons for approaching a slower titration, however patient irritated by answers and says he will tolerate it fine by increasing by 50mg. Space Systems Operations Manager discussed pt retracting 3 day to stay longer for Clozapine titration, given that he was re-admitted after only a few days, indicating need for longer stay 07/14 continues to have AH that is quite bothersome; guarded, suspicious but cooperative. Retracted 3 day notice saying he realizes he needs to stay longer; wants Clozaril titrated -loose stool before admission; hx of on/off constipation/loose stool roomate enteropathic ecoli so hospitalist recommends that patient get stool culture as well 07/15 continue treatment plan; will further titrate Clozaril. No change in presentation. [facility] out reach workers medicated with SW and strongly advocate for patient to remain on psychiatric unit to continue with medication management so that he can stabilize 07/16 Patient guarded, suspicious, anxious; continues to report that people are lying against him. Initially patient upset that remote mortgage underwriter was only increasing clozapine dose by 25 mg per day instead of 50 mg per day, saying remote mortgage underwriter lied to him and is misleading him, playing games... remote mortgage underwriter again explained reasoning behind it and eventually patient seemed to accept this and agreed to 25 mg increase per day. He said he was last on his home dose of 475 mg about 4 weeks ago. Patient again asked remote mortgage underwriter to please do your job... -Spoke with patient's outpatient provider, Dr. Cho who strongly advocates for patient to remain inpatient until clozapine dose back to home dose of 575mg; otherwise concern is for quick returned to the hospital. Space Systems Operations Manager agrees 07/18- CTP inc by 25mg /night-pt hoping to go Saturday home for continued titration 07/19 CTP will re write for 475mg tonight 07/20 pt doing better; still paranoid but less so. Says mood is better and affect is brighter; less guarded and more amenable. Agrees to retract 3 day and remain for continued Clozapine titration. Says sleeping well and AH less bothersome and less frequently negative. -increase Clozapine 07/20 pt doing better; still paranoid but less so. Says mood is better and affect is brighter; less guarded and more amenable. Agrees to retract 3 day and remain for continued Clozapine titration. Says sleeping well and AH less bothersome and less frequently negative. -increase Clozapine 07/21 patient doing better, friendly, more calm, no longer guarded or suspicious with remote mortgage underwriter; thanks remote mortgage underwriter for help and says he is feeling better that voices are less bothersome and less negative. Agrees to continue Clozaril titration and to discharge [place] 9/18 remains stable, much improved, more relaxed no longer guarded or suspicious. Continue with treatment plan and plan to discharge on Monday 07/23 patient very likely at baseline. He is significantly improved and 4 days now he has been calm, more trusting and without the suspicion and guardedness that marked his earlier presentation during this admission. Still has AH but feels they are tolerable and is pleased with result of titrated Clozaril. Refuse medications and asks for refills. Patient plans to discharge tomorrow. Patient has a chronic illness which is adequately treated with Clozaril; he is back to his home dose and peers to be at baseline. Space Systems Operations Manager reached out to his outpatient psychiatrist Dr. Cho who agrees with plan. Patient is in good behavioral and impulse control and though mostly keeps himself, is appropriate with peers and staff. Patient has significant outpatient support including [facility]. Patient is not in imminent risk for harm to self or others. He is appropriate to return to the community for treatment and his request for discharge honored. Plan CV q15 min Titrate Clozaril by 25 mg daily until back to home dose of 575 mg Continue Clonazepam 1 mg daily; 0.5 b.i.d. p.r.n. Continue Perphenazine 6 mg daily Continue Perphenazine 8 mg q.h.s. Patient educated on: diagnosis and medication risk/benefits Informed Consent: understands Reason for continued inpatient stay Substantial Risk for: stable for discharge Time Spent With Patient Time: Total time managing care of this patient today ____ minutes.
--- NOTE | 2024-07-23 18:40 | PM.PSYDC ---
DS: Providers Provider Date of Service: 07/24/24 Date of admission: 07/10/24 15:59 Date of discharge: 07/24/24 Primary care physician: Rob Rubalcava MD Attending physician on admission: Collins Livingston Consults: 07/10/24 17:45 Consult to Hospitalist Routine Comment: Consulting Provider: Hospitalist Reason For Exam: admission physical Attending physician on discharge: Paulie Torres DS: Diagnosis Discharge Diagnosis (1) Schizophrenia: Status: Acute DS: Medications Discharge Medications Home Medications: Previous Rx's ?Medication ?Instructions ?Recorded Patient Own Medication 1 ea PO DAILY ##0 07/23/24 cholecalciferol (vitamin D3) 10 10 mcg PO DAILY 30 days #30 tabs 07/23/24 mcg (400 unit) tablet (Vitamin D3) clonazepam 0.5 mg tablet 0.5 mg PO BID PRN Anxiety 30 days 07/23/24 #60 tabs clonazepam 1 mg tablet 1 mg PO DAILY 30 days #30 tabs 07/23/24 clozapine 100 mg tablet 500 mg (5 x 100 mg) PO BEDTIME 30 07/23/24 days #150 tabs clozapine 25 mg tablet 75 mg (3 x 25 mg) PO BEDTIME 30 07/23/24 days #90 tabs fluoxetine 20 mg capsule 20 mg PO BEDTIME 30 days #30 caps 07/23/24 perphenazine 2 mg tablet 2 mg PO DAILY 30 days #30 tabs 07/23/24 perphenazine 4 mg tablet 4 mg PO DAILY 30 days #30 tabs 07/23/24 perphenazine 8 mg tablet 8 mg PO BEDTIME 30 days #30 tabs 07/23/24 trazodone 50 mg tablet 50 mg PO BEDTIME 30 days #30 tabs 07/23/24 Mental Status Exam Mental Status Exam Narrative: Pt is alert and oriented; behavior is a much more calm, friendly, cooperative and no longer guarded; patient is not in distress; dressed in casual attire with adequate hygiene; mood is described as good and affect congruent, brighter, more calm; eye contact appropriate; Speech is normal rate, volume and prosody and not pressured; no psychomotor agitation/retardation present; thought process is organized and goal directed; Thought content is on tx; some paranoid ideations but less expressed; no SI/HI. AH but less negative. Patients insight and judgment much improved, likely at baseline and adequate. Data Data Completed and Pending Completed studies during hospitalization [Text1]: 07/17/24 07/19/24 Unknown 09:02 Absolute Neuts (auto) 4.8 Hold Purple Top SEE NOTE Stl C. cayetanensis PCR Cancelled Stool Rotavirus A PCR Cancelled Stl Adenov F 40/41 PCR Cancelled Stool Astrovirus (PCR) Cancelled Stool Campylobacter PCR Cancelled Stool Cryptosporidium PCR Cancelled Stl Sh Tox Pr E STEC PCR Cancelled Stool E coli O157 PCR Cancelled Stl Enterotoxigenic E PCR Cancelled Stool EPEC (PCR) Cancelled Stool EAEC (PCR) Cancelled Stl E. histolytica PCR Cancelled Stool Giardia Lamblia PCR Cancelled Stl P. shigelloides PCR Cancelled Stool Salmonella PCR Cancelled Stool Sapovirus (PCR) Cancelled Stl Shigella/EIEC PCR Cancelled St Y.enterocolitica PCR Cancelled Stool Vibrio (PCR) Cancelled Stl Vibrio cholerae PCR Cancelled Stl Norovirus GI/GII PCR Cancelled DS: Summary Hospital Course Hospital Course: HPI: The patient is a 54-year-old male, single, with no children, unemployed on disability for mental illness, with good social support provided by his brother who lives in [place] and another sibling, with a long history of schizophrenia who was recently admitted to [facility] a few weeks ago for psychotic decompensation, later on he was transferred to this hospital for worsening of his mental status but he was diagnosed with pneumonia needed to be treated medically and after being medically cleared on transferred to . He was discharged a few days ago but he came back to the hospital complaining of psychotic symptoms. According to the crisis report, the patient reported that he had been hearing more voices with increased paranoia, disorganized behavior and feeling unsafe. He was assessed by crisis and transferring to this facility for psychiatric stabilization. -At [facility] this past June, was catatonic (not eating/drinking), resolved with ativan, then got aggressive...got pneumonia, [facility] and was transferred to and discharged soon after. Went to [facility] but there, expressed Aliens tormenting him, controlling his brain, SI and HI so sent back On admission, the patient complained of feeling very anxious with intrusive thoughts. He was perseverative during the interview stating that he was receiving back in the days clozapine 575 mg and he wants Clozaril back again. He stated that the dose his psychotic symptoms were under control. He is fully aware of risks, benefits, side-effects and alternatives and he wants to be treated here. Also, he admitted that he had been having diarrhea for the last days. He was able to contract for safety in the facility and he is willing to follow treatment. During the interview, the patient was adamant that he wants to have his Clozaril back adjusted up to 575 they used to be therapeutic for him. -stable since 2016 Hospital course: 07/13 pt signed a 3 day notice, saying i'm being treated unfairly here by staff.... On inquiry he says you know what's going on... and would not give any examples. He says i'm snowballing here...i just want to go home, get my mind settled... i realize what's going on...being pushed around by staff... he feels policy writer typist is pushing him around too, but could not say how. im tired of being pushed around...just do your jobs. Says AH is bothersome and all day long, both good and bad... hearing AH to say get out of bed or it will be the end of the world... Talking about Aliens Pt says he wants Clozapine titrated faster and wants to go up by 50mg a day; policy writer typist discussed reasons for approaching a slower titration, however patient irritated by answers and says he will tolerate it fine by increasing by 50mg. Yardage Control Operator [employer]ing discussed pt retracting 3 day to stay longer for Clozapine titration, given that he was re-admitted after only a few days, indicating need for longer stay 07/14 continues to have AH that is quite bothersome; guarded, suspicious but cooperative. Retracted 3 day notice saying he realizes he needs to stay longer; wants Clozaril titrated -loose stool before admission; hx of on/off constipation/loose stool roomate enteropathic ecoli so hospitalist recommends that patient get stool culture as well 07/15 continue treatment plan; will further titrate Clozaril. No change in presentation. [facility] out reach workers medicated with SW and strongly advocate for patient to remain on psychiatric unit to continue with medication management so that he can stabilize 07/16 Patient guarded, suspicious, anxious; continues to report that people are lying against him. Initially patient upset that policy writer typist was only increasing clozapine dose by 25 mg per day instead of 50 mg per day, saying policy writer typist lied to him and is misleading him, playing games... policy writer typist again explained reasoning behind it and eventually patient seemed to accept this and agreed to 25 mg increase per day. He said he was last on his home dose of 475 mg about 4 weeks ago. Patient again asked policy writer typist to please do your job... -Spoke with patient's outpatient provider, Dr. Cho who strongly advocates for patient to remain inpatient until clozapine dose back to home dose of 575mg; otherwise concern is for quick returned to the hospital. Yardage Control [employer]ing agrees 07/18- CTP inc by 25mg /night-pt hoping to go Saturday home for continued titration 07/19 CTP will re write for 475mg tonight 07/20 pt doing better; still paranoid but less so. Says mood is better and affect is brighter; less guarded and more amenable. Agrees to retract 3 day and remain for continued Clozapine titration. Says sleeping well and AH less bothersome and less frequently negative. -increase Clozapine 07/20 pt doing better; still paranoid but less so. Says mood is better and affect is brighter; less guarded and more amenable. Agrees to retract 3 day and remain for continued Clozapine titration. Says sleeping well and AH less bothersome and less frequently negative. -increase Clozapine 07/21 patient doing better, friendly, more calm, no longer guarded or suspicious with policy writer typist; thanks policy writer typist for help and says he is feeling better that voices are less bothersome and less negative. Agrees to continue Clozaril titration and to discharge Sunday 07/22 remains stable, much improved, more relaxed no longer guarded or suspicious. Continue with treatment plan and plan to discharge on Monday 07/23 patient very likely at baseline. He is significantly improved and 4 days now he has been calm, more trusting and without the suspicion and guardedness that marked his earlier presentation during this admission. Still has AH but feels they are tolerable and is pleased with result of titrated Clozaril. Refuse medications and asks for refills. Patient plans to discharge tomorrow. Patient has a chronic illness which is adequately treated with Clozaril; he is back to his home dose and peers to be at baseline. [employer] reached out to his outpatient psychiatrist Dr. Cho who agrees with plan. Patient is in good behavioral and impulse control and though mostly keeps himself, is appropriate with peers and staff. Patient has significant outpatient support including [facility]. Patient is not in imminent risk for harm to self or others. He is appropriate to return to the community for treatment and his request for discharge honored. On day of discharge, patient remained in good mood, friendly, optimistic, and feeling like his regular self. He expressed much thanks for help on the unit. Time spent discussing smoking cessation with patient: 3 to 10 minutes Status at Discharge Functional status at discharge: independent ambulation Overall status at discharge: patient is back to baseline Time Spent with Patient Time attestation: Total time managing care of this patient today _40___ minutes. Time spent: Greater than 30 minutes Specific discharge activities: Met with patient; discussed with team; charting; prescriptions Discharge Plan Discharge Anticipated Discharge Date/Time: 07/24/24 10:00 Patient Disposition: Home, Self-Care Discharge Diagnosis: Schizophrenia Referrals: [facility] Psychiatry w Uzma Cho [Other] - 08/25/24 1:30 pm (I requested the receptionist telephone operator contact Uzma Cho to see if the appointment could be made sooner. ) [facility] Therapy with Shirley Rubalcava [Other] - 3-5 Days (I left a message with the receptionist telephone operator to let Shirley know you would be discharging and requesting an appointment. Please follow up upon discharge. ) Rob Rubalcava MD [Primary Care Provider] - 1 Week Discharge Medications: New cholecalciferol (vitamin D3) [Vitamin D3] 10 mcg (400 unit) Tablet 10 mcg PO DAILY 30 Days Qty: 30 1RF clonazepam 1 mg Tablet 1 mg PO DAILY 30 Days Qty: 30 1RF Patient Own Medication 1 ea PO DAILY Qty: 0 0RF clonazepam 0.5 mg Tablet 0.5 mg PO BID PRN (Reason: Anxiety) 30 Days Qty: 60 1RF Continued trazodone 50 mg Tablet 50 mg PO BEDTIME 30 Days Qty: 30 1RF perphenazine 4 mg tablet 4 mg PO DAILY 30 Days Qty: 30 1RF perphenazine 8 mg Tablet 8 mg PO BEDTIME 30 Days Qty: 30 1RF Changed perphenazine 2 mg tablet 2 mg PO DAILY 30 Days Qty: 30 1RF clozapine 100 mg Tablet 500 mg PO BEDTIME 30 Days Qty: 150 1RF clozapine 25 mg tablet 75 mg PO BEDTIME 30 Days Qty: 90 1RF fluoxetine 20 mg capsule 20 mg PO BEDTIME 30 Days Qty: 30 1RF Discontinued lorazepam 1 mg Tablet 1 mg PO TID 30 Days Qty: 90 0RF Discharge Orders: Discharge Order (Routine); Ordered 07/24/24 Ordered By: Paulie Torres Diet: Regular diet Activity on Discharge: As tolerated Stand Alone Forms: Patient Portal Discharge page Print Language: Gabonese Care Plan Goals: Maintain mood and safe behaviors Take medications as prescribed Practice coping skills Continue with outpatient providers and reach out to them as needed Health Concerns: Mood stability and behaviors Plan of Treatment: Follow up with your PCP, psychiatric provider and other outpatient providers regarding above concerns Take medications as prescribed Assessment: Risk assessment at time of discharge:? Patient was interviewed prior to discharge and found to be fully oriented and without any SI or HI. Patient has improved insight and judgment and wants to continue treatment. Patient is not in imminent risk of harm to self or others and has a safety plan that includes presenting to the closest ER or calling 911 if feeling unsafe.? Patient has been observed closely by nursing and unit staff throughout admission; patient has not engaged in any behaviors that suggest dangerousness to self or others and has demonstrated appropriate behaviors and impulse control
[2024-07-23] MEDS: cloZAPine 100 MG TABLET 500 MG PO (19:55)
[2024-07-23] MEDS: cloZAPine 25 MG TABLET 75 MG PO (19:56)
[2024-07-23] MEDS: FLUoxetine HCl 20 MG CAPSULE PO (19:57)
[2024-07-23] MEDS: Perphenazine 8 MG TABLET PO (19:57)
[2024-07-23 20:00] VITALS: BP 111/72; PULSE 92; TEMP 36.6; O2SAT 96
[2024-07-23] MEDS: traZODone HCL 50 MG TABLET PO (22:30)
[2024-07-24] MEDS: Perphenazine 2 MG TABLET 6 MG PO (08:11)
[2024-07-24] MEDS: clonazePAM 1 MG TABLET PO (08:12)
[2024-07-24] MEDS: Cholecalciferol (Vitamin D3) 10 MCG TABLET PO (08:12)
[2024-07-24 08:17] VITALS: BP 122/65; PULSE 97; RESP 16; TEMP 36.9; O2SAT 98
== END 2024-07-24 10:00 | disposition home or self-care (01) | DRG 885 ==
PROVIDERS: Admitting Provider Psychiatry & Neurology Psychiatry; PCP Internal Medicine; Visit Provider Psychiatry & Neurology Psychiatry
DX: F20.9 Schizophrenia, unspecified (principal); F17.210 Nicotine dependence, cigarettes, uncomplicated; Z71.6 Tobacco abuse counseling; Z79.899 Other long term (current) drug therapy
CPT/HCPCS: 36415; 80053; 80061; 83036; 83735; 84443; 85048; 87507

== ENCOUNTER → 2024-07-10 15:59 | Outpatient (BNV) | payer OTHER, SELFPAY | PROVIDERS: Admitting Provider Psychiatry & Neurology Psychiatry; PCP Internal Medicine; Visit Provider Student in an Organized Health Care Education/Training Program | DX: Z00.8 Encounter for other general examination (principal) | CPT/HCPCS: 99429 ==

== ENCOUNTER → 2024-07-10 15:59 | Outpatient (BNV) | payer OTHER, SELFPAY | PROVIDERS: Admitting Provider Psychiatry & Neurology Psychiatry; PCP Internal Medicine; Visit Provider Psychiatry & Neurology Psychiatry | DX: F20.0 Paranoid schizophrenia (principal) | CPT/HCPCS: 90792; 99231; 99232; 99239 ==